=== PATIENT | female | born 1940 | race Caucasian/White ===

== ENCOUNTER 2020-01-12 10:26 | Emergency (ER) | payer OTHER, SELFPAY ==
[2020-01-12] VITALS (21 sets, daily range): BP systolic 123–149; BP diastolic 56–112; PULSE 63–74; RESP 15–22; TEMP 36.4; O2SAT 98–100
--- NOTE | ~2020-01-12 | XR_ITS ---
EXAMINATION: XR chest 2V 01/12/2020 11:07 INDICATION: Shortness of breath and dizziness PROCEDURE: 2 view chest COMPARISON: 07/09/2019 FINDINGS: The lungs are clear. The cardiomediastinal silhouette is within normal limits. There are no pleural effusions. There is no pneumothorax suspected. There is a deployed filter overlying the left hilum, possibly in the pulmonary artery. There is atherosclerosis. There are calcified granuloma s in the right upper lobe. IMPRESSION: 1: NO ACUTE CARDIOPULMONARY DISEASE. Reviewed, dictated and finalized at location A.
--- NOTE | ~2020-01-12 | CT_ITS ---
EXAMINATION: CT brain wo con DATE: 01/12/2020 11:01 INDICATION: Dizziness TECHNIQUE: Computed tomography (CT) of the head was performed without intravenous contrast. The dose- length product was 605.33 mGy-cm. The mA was adjusted according to patient size. Iterative reconstruc tion technique was employed. COMPARISON: None FINDINGS: No acute intracranial hemorrhage, infarction, mass or mass effect. No ventriculomegaly or m idline shift. Basilar cisterns are patent. There is intracranial atherosclerosis. Mild generalized at rophy. There are scattered mild periventricular and subcortical white matter changes, most likely rel ated to small vessel ischemic disease (microangiopathy). Paranasal sinuses and mastoids are pneumatiz ed. No depressed skull fractures. IMPRESSION: 1. No acute intracranial abnormality. 2: Chronic age-related findings. Reviewed, dictated and finalized at location A.
--- NOTE | 2020-01-12 10:47 | ECG_ITS ---
Measurements Intervals [place] Rate: 62 P: -8 MS: 217 QRS: 15 QRSD: 102 T: 48 QT: 425 QTc: 435 Interpretive Statements SINUS RHYTHM WITH FIRST DEGREE AV BLOCK INCOMPLETE RIGHT BUNDLE BRANCH BLOCK BORDERLINE T WAVE ABNORMALITY- ANTERIOR LEADS ABNORMAL ECG Electronically Signed On 01-12-2020 17:30:23 CDT by Eip Walker D.O.
--- NOTE | 2020-01-12 10:55 | ED.DIZZY ---
HPI - Dizziness General Chief Complaint: Dizziness Stated Complaint: dizzy/sob Time Seen by Provider: 01/12/20 10:35 Source: patient Mode of arrival: wheelchair Limitations: no limitations History of Present Illness HPI Narrative: This is a 79-year-old female that presents the emergency department for shortness of breath since yesterday. Worsened with exertion. Also reports she has had intermittent dizziness for the last 3 months. Reports this is worsened since yesterday as well. Reports this happens when she stands up. Reports she feels unsteady on her feet. Reports she has had dark stools for the last 9 months. She sees a GI doctor at [place] for this and recently had a capsule endoscopy. Also reports that she recently had a watchman procedure done due to her not being able to be on anticoagulation because of her GI bleed. Reports a cough that has been chronic for her. Denies fever, abdominal pain, vomiting, diarrhea, or dysuria. Related Data Home Medications Medication Instructions Recorded Confirmed Eliquis 5 mg PO BID 07/09/19 07/09/19 Januvia 50 mg PO DAILY 07/09/19 07/09/19 PreserVision AREDS 2 tablet PO DAILY 07/09/19 07/09/19 Vitamin D3 5,000 unit PO DAILY 07/09/19 07/09/19 amiodarone 200 mg PO DAILY 07/09/19 07/09/19 bupropion HCl 150 mg PO QAM 07/09/19 07/09/19 carvedilol 12.5 mg PO BID 07/09/19 07/09/19 furosemide [Lasix] 20 mg PO DAILY 07/09/19 07/09/19 gabapentin 100 mg PO HS 07/09/19 07/09/19 valsartan 80 mg PO DAILY 07/09/19 07/09/19 Allergies Allergy/AdvReac Type Severity Reaction Status Date / Time clarithromycin Allergy Severe RASH Verified 04/07/19 22:27 tetracycline Allergy Severe RASH Verified 04/07/19 22:27 Review of Systems Review of Systems: Narrative: CONSTITUTIONAL: Denies fever ENT: Denies rhinorrhea, congestion, sore throat, or otalgia. CARDIOVASCULAR: Denies chest pain or edema. RESPIRATORY: Reports dyspnea. Denies cough GASTROINTESTINAL: Reports nausea. Denies abdominal pain, vomiting, or diarrhea. GENITOURINARY: Denies dysuria or hematuria. NEUROLOGIC: Denies numbness, or weakness. 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 Gomez Diabetes GI bleed Hemochromatosis History of PFTs Performed April 2019 due to amiodarone use which demonstrated mild air trapping and moderate decreased diffusion capacity HLD (hyperlipidemia) HTN (hypertension) Paroxysmal atrial fibrillation With prior cardioversion 07/05/2019 Peripheral neuropathy Sleep apnea UTI (urinary tract infection) Surgical History Surgical History (Updated 07/09/19 @ 05:04 by Rebecca De Guzman DO) H/O cystoscopy [address] Sanabria due to micro hematuria biopsies demonstrated benign pathology with cystitis cystica H/O microdiscectomy 1999 at the time of her cervical spine fusion History of lumpectomy of right breast With lymph node biopsy with breast cancer radiation therapy 1997 for 7 weeks History of spinal surgery C7-T1 Social History Social History (Updated 07/09/19 @ 05:13 by Rebecca De Guzman DO) Social History: The patient lives in [place] with her of over 50 years. She has 4 children who are healthy. She smoked 1.5 packs of cigarettes per day for 30 years but quit smoking in 1992. She drinks an occasional glass of wine. 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 Primary care physician is Dr. Edison Sanabria. Smoking packs per day: 1.5 Smoking cigarettes per day: 30.0 Years smoked: 30 Smoking pack-years: 45.00 Smoking status: Former smoker Tobacco type: cigarettes Smoking end date: 04/01/93 Additional smoking assessment comments: Quit in 1992, had smoked 30+ years Alcohol intake: current Substance use: never Gender identity (if verbalized by the patie
[2020-01-12] MEDS: MECLIZINE HCL 25 MG TABLET PO (11:15)
[2020-01-12] MEDS: ONDANSETRON INJ 4 MG/2 ML VIAL IV PUSH (11:15)
[2020-01-12] MEDS: SODIUM CHLORIDE 0.9% IV 500 ML 999 ML IV CONT (11:15)
[2020-01-12 11:28] LABS: Basophils Percent Auto 0.7 % (0.2-1.2); Eosinophils Absolute Auto 0.1 K/mm3 (0-0.3); Eosinophils Percent Auto 3.2 % (0-4.4); Hematocrit 27.4 % (37.0-47.0); Hemoglobin 8.9 g/dL (12.0-15.0); Immature Granulocyte Absolute 0.04 K/mm3 (0.00-0.031); Lymphocytes Absolute Auto 0.48 K/mm3 (0.9-3.2); Lymphocytes Percent Auto 11.9 % (18.3-44.2); Mean Corpuscular HGB Conc 32.5 g/dl (32-36); Mean Corpuscular Hemoglobin 32.4 pg (26-34); Mean Corpuscular Volume 99.6 fl (80-100); Mean Platelet Volume 8.1 fl (7.4-10.4); Monocytes Absolute Auto 0.7 K/mm3 (0.1-0.6); Monocytes Percent Auto 16.6 % (2.6-8.5); Neutrophils Absolute Auto 2.7 K/mm3 (1.3-6.7); Neutrophils Percent Auto 66.6 % (45.5-73.1); Platelet Count Result 164 k/mm3 (150-375); Red Blood Count 2.75 M/mm3 (4.2-5.4); Red Cell Distribution Width 13.7 % (11.5-14.5)
[2020-01-12 11:35] LABS: INR 1.1; Prothrombin Time 14.2 Seconds (11.1-14.7)
[2020-01-12 11:36] LABS: Partial Thromboplastin Time 30.1 SECONDS (22.3-36.8)
[2020-01-12 11:37] LABS: Alanine Aminotransferase 32 U/L (4-35); Albumin Level 4.3 g/dL (3.5-5.1); Alkaline Phosphatase 70 U/L (38-126); Aspartate Amino Transferase 41 U/L (14-36); Bilirubin,Total 0.5 mg/dL (0.2-1.3); Blood Urea Nitrogen 17 mg/dL (7-17); Calcium 9.3 mg/dL (8.4-10.2); Carbon Dioxide 23 mmol/L (22-30); Chloride 99 mmol/L (98-107); Estimated CRCL calculation 36 ml/min; Estimated Glomerular Filt Rate 43; Glucose 132 mg/dL (65-105); Potassium 4.9 mmol/L (3.4-5.0); Sodium 130 mmol/L (137-145)
[2020-01-12 11:45] LABS: Add Urine Microscopic? YES; Appearance Urine Cloudy (Clear); Bacteria Urine Trace /hpf; Bilirubin Urine Negative (Negative); Blood Urine Negative (Negative); Color Urine Yellow (Yellow); Glucose Urine UA Negative (Negative); Ketones Urine Negative (Negative); Leukocyte Esterase Ur Trace LEU/UL (Negative); Mucus Urine Rare /lpf; Nitrate Urine Negative (Negative); Protein Urine Negative (Negative); Specific Grav Ur 1.015 (1.001-1.035); Squamous Epithelial Cell Urine Many /hpf (Few); WBC Urine 21-30 /hpf
[2020-01-12 11:45] LABS: NT Pro B Type Natriuretic Pept 230 PG/ML (5-100)
== END 2020-01-12 13:34 | disposition home or self-care (01) ==
PROVIDERS: Physician Assistant; Emergency Provider Emergency Medicine
DX: R42 Dizziness and giddiness (principal); E78.5 Hyperlipidemia, unspecified; I10 Essential (primary) hypertension; I48.0 Paroxysmal atrial fibrillation; Z79.01 Long term (current) use of anticoagulants; E11.42 Type 2 diabetes mellitus with diabetic polyneuropathy; Z87.440 Personal history of urinary (tract) infections; G47.30 Sleep apnea, unspecified; Z85.828 Personal history of other malignant neoplasm of skin; Z87.891 Personal history of nicotine dependence; Z79.84 Long term (current) use of oral hypoglycemic drugs; I44.0 Atrioventricular block, first degree; I45.10 Unspecified right bundle-branch block; R94.31 Abnormal electrocardiogram [ECG] [EKG]
CPT/HCPCS: 36415; 70450; 71046; 80053; 81001; 83880; 85025; 85610; 85730; 86850; 86900; 86901; 87077; 87086; 87088; 87186; 93005; 96361; 96374; 99284; A9270; J2405; J7040

== ENCOUNTER 2020-02-12 10:14 | Inpatient (IN) | payer MEDICARE, OTHER, SELFPAY ==
[2020-02-12] VITALS (14 sets, daily range): BP systolic 127–179; BP diastolic 44–83; PULSE 70–98; RESP 16–18; TEMP 36.3–37.4; O2SAT 97–100
--- NOTE | ~2020-02-12 | CT_ITS ---
EXAMINATION: CT brain wo con DATE: 02/12/2020 11:18 INDICATION: Dizziness. TECHNIQUE: Computed tomography (CT) of the head was performed without intravenous contrast. The mA wa s adjusted according to patient size. Iterative reconstruction technique was employed. The dose-lengt h product was 605.33 mGy-cm. COMPARISON: Head CT 01/12/2020 FINDINGS: There is no intracranial hemorrhage, acute infarction, or abnormal intracranial mass lesion . There are scattered areas of low attenuation in the cerebral white matter, which is within normal l imits for the patient's age. The ventricles are normal in size. There are likely changes of ocular le ns replacement surgeries. There is mild mucosal thickening in the ethmoid sinuses. There is a small l eft mastoid effusion. IMPRESSION: 1. Normal aging brain. Reviewed, dictated and finalized at location A. IMPRESSION: 1. Normal aging brain.
--- NOTE | 2020-02-12 10:47 | ED.GENADULT ---
HPI - General Adult General Chief complaint: Dizziness Stated complaint: Nausea, Dizzy Time Seen by Provider: 02/12/20 10:32 Source: patient Mode of arrival: ambulatory Limitations: no limitations History of Present Illness HPI narrative: Patient is a 79-year-old female with a history of atrial fibrillation, GI bleed chronically who presents for evaluation of weakness, nausea, dizziness. Patient states she notices the dizziness most with standing. No vertigo sensation or spinning type sensation. Patient reports dark, tarry stool which is chronic for her. She typically follows with gastroenterology at [facility] but was referred to this facility for assessment given the nausea and dizziness. Patient reports mild abdominal cramping which is currently resolved. No vomiting. No fever. No syncope or decreased level of consciousness. Related Data Home Medications Medication Instructions Recorded Confirmed Januvia 50 mg PO DAILY 07/09/19 07/09/19 PreserVision AREDS 2 tablet PO DAILY 07/09/19 07/09/19 Vitamin D3 5,000 unit PO DAILY 07/09/19 07/09/19 amiodarone 100 mg PO DAILY 07/09/19 07/09/19 bupropion HCl 150 mg PO QAM 07/09/19 07/09/19 carvedilol 12.5 mg PO BID 07/09/19 07/09/19 gabapentin 100 mg PO HS 07/09/19 07/09/19 valsartan 80 mg PO DAILY 07/09/19 07/09/19 aspirin [Adult Low Dose Aspirin] 02/12/20 clopidogrel [Plavix] 75 mg DAILY 02/12/20 02/12/20 vitamin B complex [B tablet 02/12/20 Complex-Vitamin B12] Allergies Allergy/AdvReac Type Severity Reaction Status Date / Time clarithromycin Allergy Severe RASH Verified 02/12/20 11:23 tetracycline Allergy Severe RASH Verified 02/12/20 11:23 [facility] Past Medical History Medical History (Updated 02/12/20 @ 11:56 by Evangelina Frost MD) Cancer 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 Gomez Diabetes GI bleed Hemochromatosis History of PFTs Performed April 2019 due to amiodarone use which demonstrated mild air trapping and moderate decreased diffusion capacity HLD (hyperlipidemia) HTN (hypertension) Paroxysmal atrial fibrillation With prior cardioversion 07/05/2019 Peripheral neuropathy Sleep apnea UTI (urinary tract infection) Surgical History Surgical History (Updated 07/09/19 @ 05:04 by Rebecca De Guzman DO) H/O cystoscopy [address] Sanabria due to micro hematuria biopsies demonstrated benign pathology with cystitis cystica H/O microdiscectomy 1999 at the time of her cervical spine fusion History of lumpectomy of right breast With lymph node biopsy with breast cancer radiation therapy 1997 for 7 weeks History of spinal surgery C7-T1 Social History Social History (Updated 07/09/19 @ 05:13 by Rebecca De Guzman DO) Social History: The patient lives in [place] with her of over 50 years. She has 4 children who are healthy. She smoked 1.5 packs of cigarettes per day for 30 years but quit smoking in 1992. She drinks an occasional glass of wine. 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 Primary care physician is Dr. Edison Sanabria. Smoking packs per day: 1.5 Smoking cigarettes per day: 30.0 Years smoked: 30 Smoking pack-years: 45.00 Smoking status: Former smoker Tobacco type: cigarettes Smoking end date: 04/01/93 Additional smoking assessment comments: Quit in 1992, had smoked 30+ years Alcohol intake: current Substance use: never Gender identity (if verbalized by the patient): Female Spiritual care concerns: No Agree to blood products: Yes Course Vital Signs Vital signs: Vital Signs Pulse Rate 83 02/12/20 10:49 Blood Pressure 147/62 H 02/12/20 10:49 Temperature 36.4 C 02/12/20 10:55 Pulse Rate 93 02/12/20 11:05 Respiratory Rate 18 02/12/20 10:55 Blood Pressure 127/59 L 02/12/20 11:05 Pulse Oximetry 100 02/12/20 10:55 Medical Decision Making MDM Narrative Medical decision making narrative: Patient presented for
--- NOTE | 2020-02-12 10:49 | ECG_ITS ---
Measurements Intervals [place] Rate: 93 P: 5 [place]: 194 QRS: 32 QRSD: 88 T: 32 QT: 349 QTc: 434 Interpretive Statements SINUS RHYTHM INCOMPLETE RIGHT BUNDLE BRANCH BLOCK BORDERLINE ECG Electronically Signed On 02-12-2020 10:51:32 CDT by Epi Walker D.O.
[2020-02-12 11:08] LABS: Eosinophils Absolute Auto 0.1 K/mm3 (0-0.3); Hematocrit 22.5 % (37.0-47.0); Immature Granulocyte Absolute 0.02 K/mm3 (0.00-0.031); Immature Granulocyte Percent A 0.7 % (0-0.5); Lymphocytes Absolute Auto 0.36 K/mm3 (0.9-3.2); Mean Corpuscular HGB Conc 30.7 g/dl (32-36); Mean Corpuscular Hemoglobin 28.5 pg (26-34); Mean Platelet Volume 8.4 fl (7.4-10.4); Monocytes Absolute Auto 0.5 K/mm3 (0.1-0.6); Monocytes Percent Auto 17.4 % (2.6-8.5); Neutrophils Absolute Auto 1.9 K/mm3 (1.3-6.7); Neutrophils Percent Auto 64.9 % (45.5-73.1); Platelet Count Result 141 k/mm3 (150-375); Red Blood Count 2.42 M/mm3 (4.2-5.4); Red Cell Distribution Width 14.5 % (11.5-14.5)
[2020-02-12 11:11] LABS: Hemoglobin 6.9 g/dL (12.0-15.0)
[2020-02-12 11:18] LABS: Alanine Aminotransferase 20 U/L (4-35); Albumin Level 3.5 g/dL (3.5-5.1); Alkaline Phosphatase 53 U/L (38-126); Aspartate Amino Transferase 26 U/L (14-36); Bilirubin,Total 0.3 mg/dL (0.2-1.3); Blood Urea Nitrogen 44 mg/dL (7-17); Calcium 8.5 mg/dL (8.4-10.2); Carbon Dioxide 21 mmol/L (22-30); Chloride 102 mmol/L (98-107); Estimated Glomerular Filt Rate 48; Glucose 142 mg/dL (65-105); Lipase 137 U/L (23-300); Potassium 4.8 mmol/L (3.4-5.0); Sodium 131 mmol/L (137-145)
[2020-02-12 11:21] LABS: INR 1.2; Prothrombin Time 15.1 Seconds (11.1-14.7)
[2020-02-12 11:22] LABS: Partial Thromboplastin Time 31.4 SECONDS (22.3-36.8)
[2020-02-12 11:29] LABS: Troponin I < 0.012 ng/mL (0.000-0.034)
[2020-02-12] MEDS: SODIUM CHLORIDE 0.9% IV 1,000 ML 999 ML IV CONT (11:37)
[2020-02-12] MEDS: MECLIZINE HCL 25 MG TABLET PO (11:39)
[2020-02-12] MEDS: PANTOPRAZOLE SODIUM IV 40 MG VIAL 80 MG IV PUSH (12:43)
--- NOTE | 2020-02-12 13:00 | PC.NURSE ---
Dr. Pan at bedside for evaluation.
[2020-02-12 13:03] LABS: Add Urine Microscopic? YES; Appearance Urine Clear (Clear); Bacteria Urine 2+ /hpf; Bilirubin Urine Negative (Negative); Blood Urine 2+ (Negative); Color Urine Yellow (Yellow); Glucose Urine UA Negative (Negative); Ketones Urine Negative (Negative); Leukocyte Esterase Ur Negative LEU/UL (Negative); Mucus Urine Rare /lpf; Nitrate Urine Positive (Negative); Protein Urine Negative (Negative); RBC Urine 0-2 /hpf (0-2); Specific Grav Ur 1.016 (1.001-1.035); Squamous Epithelial Cell Urine Many /hpf (Few); Urobilinogen Urine Negative mg/dL (<2.0); WBC Urine 0-3 /hpf
--- NOTE | 2020-02-12 13:06 | WPDGICN ---
Assessment and Plan Assessment and plan (1) GI bleed: Code(s): K92.2 - Gastrointestinal hemorrhage, unspecified Status: Acute Assessment and Plan: Patient has evidence for GI bleeding manifested by melenic stools and decline in her hemoglobin. Given the recent diagnosis of peptic ulcer disease 1 month ago this is most likely etiology for GI blood loss. Plan is for patient to be placed on proton pump inhibitors intravenously. Anticoagulation will be held. An EGD will be planned in the morning after stabilization. (2) Symptomatic anemia: Code(s): D64.9 - Anemia, unspecified Status: Acute Assessment and Plan: Patient more anemic than typical consistent with acute GI blood loss. Likely has chronic anemia it secondary to phlebotomy as treatment for her hemochromatosis. Plan is to monitor hemoglobin transfuse initially because of symptomatology. Continue monitor hemoglobin long-term. (3) Hemochromatosis: Code(s): E83.119 - Hemochromatosis, unspecified Status: Acute Assessment and Plan: Patient followed by Hematology of [facility]. Hemochromatosis felt to be stable although no old records available for review. (4) Paroxysmal atrial fibrillation: Code(s): I48.0 - Paroxysmal atrial fibrillation Status: Chronic Assessment and Plan: Patient currently on Plavix anticoagulation this will be held because of her bleeding. Previously intolerant of Eliquis because of GI blood loss over the last year. Long-term safety of anticoagulation will be assessed at the time of endoscopy. GI Consult Note Consult date/time: 02/12/20 13:06 HPI: Zhane Sorenson is a 79 year old female Seen in evaluation at the request of the emergency room. This patient has a history of hemochromatosis followed by Hematology followed at [facility]. she has had occasional phlebotomy in the past. One year ago she began to have GI blood loss manifested by black stools and anemia. Extensive GI workup at that time including colonoscopy EGD and capsule studies were not fruitful. No specific source of GI blood loss was noted at that time. Over the last year she was identified as having paroxysmal atrial fibrillation. Initially she was placed on Eliquis. In May she had dark stools and Eliquis was discontinued and replaced with Plavix anticoagulation. She apparently did well. However because of recent dark stools again 1 month ago underwent endoscopy at [facility] and was found to have peptic ulcer disease. This is felt to be the etiology for her recent GI bleeding. She has been maintained on proton pump inhibitor therapy. Patient did well until yesterday evening when she began to feel somewhat weak. She noticed abrupt change in her bowel habits which became black and darkish. She presented to the emergency room today and was found to have Hemoccult-positive melenic stools. Hemoglobin 6.9 in the emergency room. Patient currently denies any abdominal pain. She denies nonsteroidal anti-inflammatory agent use. Family history noncontributory. 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 Gomez Diabetes GI bleed Hemochromatosis History of PFTs Performed April 2019 due to amiodarone use which demonstrated mild air trapping and moderate decreased diffusion capacity HLD (hyperlipidemia) HTN (hypertension) Paroxysmal atrial fibrillation With prior cardioversion 07/05/2019 Peripheral neuropathy Sleep apnea UTI (urinary tract infection) Surgical History Surgical History H/O cystoscopy [address] Sanabria due to micro hematuria biopsies demonstrated benign pathology with cystitis cystica H/O microdiscectomy 200
[2020-02-12] MEDS: SODIUM CHLORIDE 0.9% IV 250 ML 30 ML IV CONT (15:21)
--- NOTE | 2020-02-12 15:39 | ADMGEN ---
This patient, Zhane Sorenson, was admitted to 3 [facility] Surg Room 319-01. Report received from WILIAM Villalobos. Patient/family oriented to hospital policies and general routines including ID bracelet, bed and alarms, visiting hours, pain management, procedures, bathroom and other care routines, personal items, smoking policy, room service/diet, and visiting hours. Valuables list has been completed. Information on how to activate the Rapid Response Team has been discussed. Patient/Family are encouraged to report perceived risks to care and to ask questions if they do not understand what they are told or what they should do.
[2020-02-12] MEDS: ONDANSETRON INJ 4 MG/2 ML VIAL IV PUSH (17:34)
--- NOTE | 2020-02-12 18:04 | WPDANESEPP ---
Anes - Eval Pre Procedure Procedure: Operation Date: 02/13/20 11:00 Proposed Procedures p Esophagogastroduodenoscopy - Adonay Pan MD Date/Time: 02/12/20 18:04 Pre Op Diagnosis: GI bleed Patient Data Age: 79 Gender: F Height: 5 ft 6 in Weight: 79.8 kg Last Vital Signs Temp 97.6 F 02/12/20 17:36 Pulse 76 02/12/20 17:36 Resp 18 02/12/20 17:36 BP 135/50 L 02/12/20 17:36 Pulse Ox 98 02/12/20 17:36 Allergies Allergy/AdvReac Type Severity Reaction Status Date / Time clarithromycin Allergy Severe RASH Verified 02/12/20 11:23 tetracycline Allergy Severe RASH Verified 02/12/20 11:23 Home Medications Medication Instructions Recorded Confirmed Type Januvia 50 mg PO DAILY 07/09/19 02/12/20 History PreserVision AREDS 1 tablet PO BID 07/09/19 02/12/20 History Vitamin D3 5,000 unit PO DAILY 07/09/19 02/12/20 History amiodarone 100 mg PO DAILY 07/09/19 02/12/20 History bupropion HCl 150 mg PO QAM 07/09/19 02/12/20 History carvedilol 12.5 mg PO BID 07/09/19 02/12/20 History gabapentin 200 mg PO HS 07/09/19 02/12/20 History valsartan 80 mg PO DAILY 07/09/19 02/12/20 History aspirin [Adult Low Dose Aspirin] 81 mg PO DAILY 02/12/20 02/12/20 History clopidogrel [Plavix] 75 mg DAILY 02/12/20 02/12/20 History pantoprazole 40 mg PO DAILY 02/12/20 02/12/20 History Laboratory Tests 02/12/20 02/12/20 02/12/20 11:01 11:01 11:01 WBC 3.0 K/mm3 L K/mm3 (4.5-10.0) RBC 2.42 M/mm3 L M/mm3 (4.2-5.4) Hgb 6.9 g/dL L* g/dL (12.0-15.0) Hct 22.5 % L % (37.0-47.0) MCV 93.0 fl fl (80-100) MCH 28.5 pg pg (26-34) MCHC 30.7 g/dl L g/dl (32-36) RDW 14.5 % % (11.5-14.5) Plt Count 141 k/mm3 L k/mm3 (150-375) MPV 8.4 fl fl (7.4-10.4) Immature Gran % (Auto) 0.7 % H % (0-0.5) Neut % (Auto) 64.9 % % (45.5-73.1) Lymph % (Auto) 12.0 % L % (18.3-44.2) [place] % (Auto) 17.4 % H % (2.6-8.5) Eos % (Auto) 4.0 % % (0-4.4) Baso % (Auto) 1.0 % % (0.2-1.2) Lymph # (Auto) 0.36 K/mm3 L K/mm3 (0.9-3.2) [place] # (Auto) 0.5 K/mm3 K/mm3 (0.1-0.6) Eos # (Auto) 0.1 K/mm3 K/mm3 (0-0.3) Baso # (Auto) 0.0 K/mm3 K/mm3 (0.0-0.1) Abs Immat Gran (auto) 0.02 K/mm3 K/mm3 (0.00-0.031) Absolute Neuts (auto) 1.9 K/mm3 K/mm3 (1.3-6.7) Absolute Nucleated RBC 0.0 K/mm3 K/mm3 (0.0-0.012) Nucleated RBC % 0.0 % % (0.0-0.2) PT 15.1 Seconds H Seconds (11.1-14.7) INR 1.2 APTT 31.4 SECONDS SECONDS (22.3-36.8) Sodium 131 mmol/L L mmol/L (137-145) Potassium 4.8 mmol/L mmol/L (3.4-5.0) Chloride 102 mmol/L mmol/L (98-107) Carbon Dioxide 21 mmol/L L mmol/L (22-30) BUN 44 mg/dL H D mg/dL (7-17) Creatinine 1.10 mg/dL H mg/dL (0.7-1.0) Estim Creat Clear Calc Not Reportable Estimated GFR 48 L (59 - ) Glucose 142 mg/dL H mg/dL (65-105) Calcium 8.5 mg/dL mg/dL (8.4-10.2) Total Bilirubin 0.3 mg/dL mg/dL (0.2-1.3) AST 26 U/L U/L (14-36) ALT 20 U/L U/L (4-35) Alkaline Phosphatase 53 U/L U/L (38-126) Troponin I < 0.012 ng/mL ng/mL (0.000-0.034) Total Protein 6.0 g/dL L g/dL (6.3-8.2) Albumin 3.5 g/dL g/dL (3.5-5.1) Lipase 137 U/L U/L (23-300) Urine Color Urine Appearance Urine pH Ur Specific [place] Urine Protein Urine Glucose (UA) Urine Ketones Ur Blood (Man) Urine Nitrate Urine Bilirubin Urine Urobilinogen Leukocyte Esterase Rfl Urine RBC Urine WBC Ur Squamous Epith Cells Ur
--- NOTE | 2020-02-12 18:40 | PM.IMHP ---
H&P: HPI History of Present Illness Chief complaint: GI bleed Narrative: Zhane Sorenson is a 79 year old female Who has a long standing history of anemia with a GI bleed. The patient was at [facility] approximately 1 week ago and had endoscopies there. She stated that they did cauterize something but she was not sure what it was. She has seen Dr. lara here in the past. She does have history of peptic ulcer disease. She has a history of atrial fibrillation and had been on Plavix at 1 time she was also on Eliquis at 1 time which she has been taken off of that. Her last admission here was on 07/09/2019 where she had the dark stools. Initially she GI was consulted on that admission but then canceled. Today the patient has been feeling dizzy while standing. No shortness of breath or chest pain. She has dark tarry stools which have been chronic. She has a history of hemochromatosis which she states her iron has been low recently and hematology was talking about possibly giving her iron IV. Patient's hemoglobin was 6.9 with hematocrit of 22.5. Blood pressure stable 143/55. She was ordered 1 unit of packed red blood cells. Her blood sugar was noted to be 142. The patient was given IV Tylenol, normal saline IV fluids, and over and Protonix In the emergency room. Date of service 02/12/2020 Review of Systems Review of Systems: All systems reviewed & are unremarkable except as noted in HPI and below Constitutional: Constitutional: Reports as per HPI and Reports no additional constitutional complaints Eyes: Eyes: Reports as per HPI and Reports no additional eye complaints ENT: Reports system reviewed and no additional complaints, except as documented and Reports Normal hearing present Cardiovascular: Cardiovascular: Reports no additional cardiovascular complaints Respiratory: Respiratory: Reports no additional respiratory complaints and Reports no additional respiratory complaints Gastrointestinal: Gastrointestinal: Reports as per HPI and Reports no additional gastrointestinal complaints Musculoskeletal: Musculoskeletal: Reports no additional musculoskeletal complaints Integumentary/Breasts: Skin/Breast: Reports system reviewed and no additional complaints, except as docu and Reports as per HPI Neurologic: Reports system reviewed and no additional complaints, except as documented, Reports as per HPI and Reports Normal hearing present Psychiatric: Psychiatric: Reports no additional psychiatric complaints and Reports as per HPI Endocrine: Endocrine: Reports no additional endocrine complaints Hematologic/Lymphatic: Hematologic/Lymphatic: Reports no additional hematologic/lymphatic complaints Allergic/Immunologic: Allergic/Immunologic: Reports no additional allergic/immunologic complaints [facility] Past Medical History Medical History (Updated 02/12/20 @ 19:00 by Paola Feldman NP) Acute GI bleeding CAD (coronary atherosclerotic disease) Cancer 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 Gomez Diabetes GI bleed Hemochromatosis History of PFTs Performed April 2019 due to amiodarone use which demonstrated mild air trapping and moderate decreased diffusion capacity HLD (hyperlipidemia) HTN (hypertension) Paroxysmal atrial fibrillation With prior cardioversion 07/05/2019 Peripheral neuropathy Restless leg syndrome Sleep apnea uses a CPAP machine Symptomatic anemia UTI (urinary tract infection) Surgical History Surgical History H/O cystoscopy [address] Sanabria due to micro hematuria biopsies demonstrated benign pathology with cystitis cystica H/O microdiscectomy 1999 at the time of her cervical spine fusion History of lumpectomy of right breast With lymph node biopsy with breast cancer radiation therapy 1997 for 7 weeks History of spinal surgery C7-T1 Family History Family History (Reviewed 02/12/20 @ 18:47 by Paola Hollingsworth
[2020-02-12] MEDS: LACTATED RINGERS 1,000 ML 125 ML IV CONT (19:28)
[2020-02-12 19:34] LABS: Glucose Point of Care 120 (65-105)
[2020-02-12 20:24] LABS: Hematocrit 22.9 % (37.0-47.0); Hemoglobin 7.5 g/dL (12.0-15.0)
[2020-02-13] VITALS (12 sets, daily range): BP systolic 80–146; BP diastolic 43–73; PULSE 69–82; RESP 14–20; TEMP 36.2–36.9; O2SAT 94–100
[2020-02-13 01:15] LABS: Glucose Point of Care 110 (65-105)
[2020-02-13 02:24] LABS: Hematocrit 21.5 % (37.0-47.0)
[2020-02-13 02:33] LABS: Alanine Aminotransferase 18 U/L (4-35); Albumin Level 3.1 g/dL (3.5-5.1); Alkaline Phosphatase 47 U/L (38-126); Aspartate Amino Transferase 25 U/L (14-36); Bilirubin,Total 0.4 mg/dL (0.2-1.3); Blood Urea Nitrogen 37 mg/dL (7-17); Calcium 8.2 mg/dL (8.4-10.2); Carbon Dioxide 22 mmol/L (22-30); Chloride 106 mmol/L (98-107); Estimated CRCL calculation 44 ml/min; Estimated Glomerular Filt Rate 54; Glucose 101 mg/dL (65-105); Lipase 100 U/L (23-300); Potassium 4.2 mmol/L (3.4-5.0); Sodium 135 mmol/L (137-145)
[2020-02-13 04:40] LABS: Free T4 Free Thyroxine Reflex 0.35 ng/dL (0.78-2.19)
[2020-02-13] MEDS: GABAPENTIN 100 MG CAPSULE 200 MG PO ×2 (05:28→20:27)
[2020-02-13] MEDS: LACTATED RINGERS 1,000 ML 125 ML IV CONT ×2 (07:12→20:27)
[2020-02-13 08:21] LABS: Glucose Point of Care 121 (65-105)
[2020-02-13 08:42] LABS: Hematocrit 23.1 % (37.0-47.0); Hemoglobin 7.6 g/dL (12.0-15.0)
--- NOTE | 2020-02-13 09:10 | WPDANESEPPF ---
Anes - Initial Pre Proc Eval Procedure: Operation Date: 02/13/20 11:00 Proposed Procedures p Esophagogastroduodenoscopy - Adonay Pan MD Date/Time: 02/13/20 09:10 Surgeon: Teresita Mercado MD Pre Op Diagnosis: GI bleed Patient Data Age: 79 Gender: F Height: 1.68 m Weight: 79.8 kg Last Vital Signs Temp 36.9 C 02/13/20 06:55 Pulse 79 02/13/20 06:55 Resp 18 02/13/20 06:55 BP 105/60 02/13/20 06:55 Pulse Ox 94 02/13/20 06:55 Allergies Allergy/AdvReac Type Severity Reaction Status Date / Time clarithromycin Allergy Severe RASH Verified 02/13/20 10:56 tetracycline Allergy Severe RASH Verified 02/13/20 10:56 Home Medications Medication Instructions Recorded Confirmed Type Januvia 50 mg PO DAILY 07/09/19 02/12/20 History PreserVision AREDS 1 tablet PO BID 07/09/19 02/12/20 History Vitamin D3 5,000 unit PO DAILY 07/09/19 02/12/20 History amiodarone 100 mg PO DAILY 07/09/19 02/12/20 History bupropion HCl 150 mg PO QAM 07/09/19 02/12/20 History carvedilol 12.5 mg PO BID 07/09/19 02/12/20 History gabapentin 200 mg PO HS 07/09/19 02/12/20 History valsartan 80 mg PO DAILY 07/09/19 02/12/20 History aspirin [Adult Low Dose Aspirin] 81 mg PO DAILY 02/12/20 02/12/20 History clopidogrel [Plavix] 75 mg DAILY 02/12/20 02/12/20 History pantoprazole 40 mg PO DAILY 02/12/20 02/12/20 History Laboratory Tests 02/12/20 02/12/20 02/12/20 11:01 11:01 11:01 WBC 3.0 K/mm3 L K/mm3 (4.5-10.0) RBC 2.42 M/mm3 L M/mm3 (4.2-5.4) Hgb 6.9 g/dL L* g/dL (12.0-15.0) Hct 22.5 % L % (37.0-47.0) MCV 93.0 fl fl (80-100) MCH 28.5 pg pg (26-34) MCHC 30.7 g/dl L g/dl (32-36) RDW 14.5 % % (11.5-14.5) Plt Count 141 k/mm3 L k/mm3 (150-375) MPV 8.4 fl fl (7.4-10.4) Immature Gran % (Auto) 0.7 % H % (0-0.5) Neut % (Auto) 64.9 % % (45.5-73.1) Lymph % (Auto) 12.0 % L % (18.3-44.2) [place] % (Auto) 17.4 % H % (2.6-8.5) Eos % (Auto) 4.0 % % (0-4.4) Baso % (Auto) 1.0 % % (0.2-1.2) Lymph # (Auto) 0.36 K/mm3 L K/mm3 (0.9-3.2) [place] # (Auto) 0.5 K/mm3 K/mm3 (0.1-0.6) Eos # (Auto) 0.1 K/mm3 K/mm3 (0-0.3) Baso # (Auto) 0.0 K/mm3 K/mm3 (0.0-0.1) Abs Immat Gran (auto) 0.02 K/mm3 K/mm3 (0.00-0.031) Absolute Neuts (auto) 1.9 K/mm3 K/mm3 (1.3-6.7) Absolute Nucleated RBC 0.0 K/mm3 K/mm3 (0.0-0.012) Nucleated RBC % 0.0 % % (0.0-0.2) PT 15.1 Seconds H Seconds (11.1-14.7) INR 1.2 APTT 31.4 SECONDS SECONDS (22.3-36.8) Sodium 131 mmol/L L mmol/L (137-145) Potassium 4.8 mmol/L mmol/L (3.4-5.0) Chloride 102 mmol/L mmol/L (98-107) Carbon Dioxide 21 mmol/L L mmol/L (22-30) BUN 44 mg/dL H D mg/dL (7-17) Creatinine 1.10 mg/dL H mg/dL (0.7-1.0) Estim Creat Clear Calc Not Reportable Estimated GFR 48 L (59 - ) Glucose 142 mg/dL H mg/dL (65-105) POC Capillary Glucose Calcium 8.5 mg/dL mg/dL (8.4-10.2) Phosphorus Total Bilirubin 0.3 mg/dL mg/dL (0.2-1.3) AST 26 U/L U/L (14-36) ALT 20 U/L U/L (4-35) Alkaline Phosphatase 53 U/L U/L (38-126) Troponin I < 0.012 ng/mL ng/mL (0.000-0.034) Total Protein 6.0 g/dL L g/dL (6.3-8.2) Albumin 3.5 g/dL g/dL (3.5-5.1) Lipase 137 U/L U/L (23-300) TSH (Reflex) Free T4 Urine Color Urine Appearance Urine pH Ur Specific [place] Urine Protein Urine Glucose (UA) Urine Ketones Ur Blood (Man) Urine Nitrate Urine Bilirubin Urine Urobilinog
--- NOTE | 2020-02-13 10:40 | PC.NURSE ---
To GI Lab per elisabet, IV #20 left hand, #20 left forearm. Report given to WILIAM Pandya.
[2020-02-13 11:01] LABS: Glucose Point of Care 116 (65-105)
[2020-02-13] MEDS: LACTATED RINGERS 1,000 ML 150 ML IV CONT (11:03)
--- NOTE | 2020-02-13 13:36 | PC.NURSE ---
Returned from GI Lab. Report received from WILIAM Guevara.
--- NOTE | 2020-02-13 14:18 | PM.IMPN ---
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 Patient seen in ER for dizziness and rectal exam was grossly melanotic and guaiac positive stool. Hgb 6.9. Patient received 2U PRBC since admission. EGD today showing acute duodenal ulcer int he third part of the duodenum. Will continue Protonix. Monitor HH closely. Transfuse as necessary. Check gastrin level. (3) Diabetes: Code(s): E11.9 - Type 2 diabetes mellitus without complications Status: Acute Assessment and Plan: Glucose reviewed on 02/13/2020. Glucose well controlled. Continue Accu-Cheks with sliding scale insulin. Januvia will remain on hold. (4) HTN (hypertension): Code(s): I10 - Essential (primary) hypertension Status: Acute Assessment and Plan: Blood pressure reviewed on 02/13/2020. Blood pressure well controlled but she is currently off her Coreg and valsartan. Will continue to monitor and resume these medications in a stepwise fashion as her blood pressure tolerates. (5) Paroxysmal atrial fibrillation: Code(s): I48.0 - Paroxysmal atrial fibrillation Status: Chronic Assessment and Plan: Aspirin and Plavix are on hold at this time due to the GI bleed. Amiodarone resumed. BP still soft so will continue to hold Coreg (6) Sleep apnea: Code(s): G47.30 - Sleep apnea, unspecified Status: Chronic Assessment and Plan: Stable. CPAP has been ordered for the patient. (7) Restless leg syndrome: Code(s): G25.81 - Restless legs syndrome Status: Chronic Assessment and Plan: Stable. Continue home medications. (8) Hypothyroid: Code(s): E03.9 - Hypothyroidism, unspecified Status: Acute Assessment and Plan: TSH 86 with low FT4 at 0.35. She has recently been decreased on her AMiodarone dose. Could be contributing to some of her dizzy symptoms. Will start Synthroid. Subjective Date/time seen: 02/13/20 14:18 Interval history: 79yo female with recent EGD here for dizziness and GI bleed. Patient had EGD at [facility] on 02/03 showing AVM duodenum and jejunum as well as mutiple nonbleeding gastric erosions. Old record reviewed. She feels bloated today and with abd pain. No CP or SOB. She did not wear her BiPAP last night. Exam Narrative: Exam Narrative: AF 98.4 100/71 18 99% ra Gen - NARD Chest - CTA bilat CV - RRR Abd -soft, protuberant, +BS, mild suprapubic pain Ext - no pedal edema Neuro - groggy from the procedure. Skin - warm and dry Objective Data Vital Signs Vital Signs: Vital Signs - 24 hr 02/12/20 15:21 02/12/20 15:24 02/12/20 15:36 Temperature 99.3 F 98.7 F 98.6 F Pulse Rate 81 81 79 Respiratory Rate 16 16 16 Blood Pressure 137/64 130/62 128/62 Pulse Oximetry 97 98 98 02/12/20 16:36 02/12/20 17:36 02/12/20 18:30 Temperature 98.3 F 97.6 F 97.5 F L Pulse Rate 78 76 78 Respiratory Rate 18 18 18 Blood Pressure 130/44 L 135/50 L 143/55 H Pulse Oximetry 98 98 100 02/12/20 22:00 02/13/20 04:42 02/13/20 04:55 Temperature 97.4 F L 98.1 F 98.0 F Pulse Rate 70 79 78 Respiratory Rate 16 16 20 Blood Pressure 142/56 H 110/44 L 146/45 H Pulse Oximetry 98 99 99 02/13/20 05:55 02/13/20 06:00 02/13/20 06:55 Temperature 97.1 F L 97.1 F L 98.4 F Pulse Rate 82 82 79 Respiratory Rate 18 18 18 Blood Pressure 113/73 134/67 105/60 Pulse Oximetry 98 100 94 02/13/20 11:47 02/13/20 13:00 02/13/20 13:10 Temperature 97.7 F Pulse Rate 77 72 72 Respiratory Rate 18 16 14 Blood Pressure 146/50 H 82/43 L 80/45 L Pulse Oximetry 99 98 99 02/13/20 13:20 02/13/20 13:26
[2020-02-13] MEDS: OPTI-GEN TAB 1 TABLET PO (17:49)
[2020-02-13 18:51] LABS: Glucose Point of Care 141 (65-105)
[2020-02-13 20:11] LABS: Hematocrit 24.1 % (37.0-47.0); Hemoglobin 7.9 g/dL (12.0-15.0)
[2020-02-13] MEDS: PANTOPRAZOLE 40 MG TABLET PO (20:27)
[2020-02-14] VITALS (11 sets, daily range): BP systolic 122–144; BP diastolic 48–62; PULSE 72–81; RESP 16–20; TEMP 36.3–36.9; O2SAT 95–98
[2020-02-14 00:24] LABS: Glucose Point of Care 123 (65-105)
[2020-02-14 01:03] LABS: Hematocrit 22.5 % (37.0-47.0); Hemoglobin 7.3 g/dL (12.0-15.0)
[2020-02-14] MEDS: LACTATED RINGERS 1,000 ML 125 ML IV CONT (04:41)
[2020-02-14] MEDS: LEVOTHYROXINE SODIUM 50 MCG TABLET PO (06:13)
[2020-02-14 06:34] LABS: Hematocrit 21.7 % (37.0-47.0); Mean Corpuscular HGB Conc 31.8 g/dl (32-36); Mean Corpuscular Hemoglobin 29.2 pg (26-34); Mean Corpuscular Volume 91.9 fl (80-100); Mean Platelet Volume 8.3 fl (7.4-10.4); Platelet Count Result 113 k/mm3 (150-375); Red Blood Count 2.36 M/mm3 (4.2-5.4); Red Cell Distribution Width 15.2 % (11.5-14.5)
[2020-02-14 06:42] LABS: Hemoglobin 6.9 g/dL (12.0-15.0)
[2020-02-14 06:59] LABS: Blood Urea Nitrogen 23 mg/dL (7-17); Calcium 8.7 mg/dL (8.4-10.2); Carbon Dioxide 23 mmol/L (22-30); Chloride 104 mmol/L (98-107); Estimated CRCL calculation 48 ml/min; Estimated Glomerular Filt Rate > 60; Glucose 112 mg/dL (65-105); Sodium 134 mmol/L (137-145)
[2020-02-14 07:58] LABS: Vitamin B12 > 1000.0 pg/mL (239-931)
[2020-02-14] MEDS: SODIUM CHLORIDE 0.9% IV 250 ML 30 ML IV CONT (08:51)
[2020-02-14] MEDS: PANTOPRAZOLE 40 MG TABLET PO ×2 (09:17→21:41)
[2020-02-14] MEDS: buPROPion HCL XL (24 HR) 150 MG TABCR PO (09:17)
[2020-02-14 09:18] LABS: Glucose Point of Care 141 (65-105)
[2020-02-14] MEDS: CHOLECALCIFEROL 1,000 UNIT TABLET 5000 UNITS PO (09:18)
[2020-02-14] MEDS: OPTI-GEN TAB 1 TABLET PO ×2 (09:18→18:26)
[2020-02-14] MEDS: AMIODARONE HCL 100 MG TABLET PO (09:18)
--- NOTE | 2020-02-14 09:36 | WPDANESPN ---
Anes - Prog Note Post-Op Date/Time: 02/14/20 09:36 Cardiovascular status: normal Respiratory status: normal Airway patency: baseline Mental status: baseline Post-Op hydration status: normal Vital Signs: Last Vital Signs Temp 36.5 C 02/14/20 09:08 Pulse 78 02/14/20 09:18 Resp 16 02/14/20 09:08 BP 141/52 H 02/14/20 09:08 Pulse Ox 95 02/14/20 09:08 I/O: Intake & Output 02/13/20 02/14/20 02/14/20 23:59 07:59 15:59 Intake Total 790 1700 0 Output Total 700 1300 Balance 90 400 0 Laboratory Tests 02/14/20 06:07 02/14/20 06:07 02/12/20 02/13/20 02/13/20 12:08 10:58 17:15 WBC RBC Hgb Hct MCV MCH MCHC RDW Plt Count MPV Sodium Potassium Chloride Carbon Dioxide Anion Gap BUN Creatinine Estim Creat Clear Calc Estimated GFR Glucose POC Capillary Glucose 116 H 141 H Calcium Vitamin B12 Folate Gastrin Blood Type A Positive Antibody Screen Negative Crossmatch See Detail 02/13/20 02/14/20 02/14/20 19:55 00:20 00:43 WBC RBC Hgb 7.9 L 7.3 L Hct 24.1 L 22.5 L MCV MCH MCHC RDW Plt Count MPV Sodium Potassium Chloride Carbon Dioxide Anion Gap BUN Creatinine Estim Creat Clear Calc Estimated GFR Glucose POC Capillary Glucose 123 H Calcium Vitamin B12 Folate Gastrin Blood Type Antibody Screen Crossmatch 02/14/20 02/14/20 02/14/20 06:07 06:07 06:07 WBC 3.0 L RBC 2.36 L Hgb 6.9 L* Hct 21.7 L MCV 91.9 MCH 29.2 MCHC 31.8 L RDW 15.2 H Plt Count 113 L MPV 8.3 Sodium 134 L Potassium 4.0 Chloride 104 Carbon Dioxide 23 Anion Gap 11.0 BUN 23 H D Creatinine 0.90 Estim Creat Clear Calc 48 Estimated GFR > 60 Glucose 112 H POC Capillary Glucose Calcium 8.7 Vitamin B12 > 1000.0 H Folate 7.0 Gastrin Pending Blood Type Antibody Screen Crossmatch 02/14/20 09:16 WBC RBC Hgb Hct MCV MCH MCHC RDW Plt Count MPV Sodium Potassium Chloride Carbon Dioxide Anion Gap BUN Creatinine Estim Creat Clear Calc Estimated GFR Glucose POC Capillary Glucose 141 H Calcium Vitamin B12 Folate Gastrin Blood Type Antibody Screen Crossmatch Post-procedural complaints: none Patient Feedback: Patient satisfied with anesthetic care.
--- NOTE | 2020-02-14 09:51 | WPDGIPROGNO ---
Progress Note: A&P Additional Plan Patient comfortable this morning. No additional bleeding reported. She denies abdominal pain. Tolerating diet. Physical exam reveals her to be alert. Pale in appearance. Comfortable at rest. HEENT exam unremarkable. Lungs are clear to auscultation and percussion. Heart is without murmur. Abdomen is soft and nontender. Records from [facility] reveal she had angiodysplasia by EGD a week ago. EGD yesterday revealed duodenal ulcer. 1. Upper GI bleeding. Appears to have been from duodenal ulcer. Plan is to review histology when available. Avoid nonsteroidal anti-inflammatory agents. Continue proton pump inhibitors. She is no longer bleeding. But may require transfusion to his more stable hematocrit. Will advance diet. Discharge when hemoglobin stable. Follow-up EGD in 2 months is advised. 2. Hemochromatosis. This is chronic. Currently felt to be stable. Followed by Hematology. 3. Atrial fibrillation. Given her recent significant GI bleeding but hold on anticoagulation for his several weeks. Subjective Date/time seen: 02/14/20 09:51 Objective Data Vital Signs Vital Signs: Vital Signs - 24 hr 02/13/20 11:47 02/13/20 13:00 02/13/20 13:10 Temperature 97.7 F Pulse Rate 77 72 72 Respiratory Rate 18 16 14 Blood Pressure 146/50 H 82/43 L 80/45 L Pulse Oximetry 99 98 99 02/13/20 13:20 02/13/20 13:26 02/13/20 13:58 Temperature 98.4 F Pulse Rate 71 69 72 Respiratory Rate 20 18 18 Blood Pressure 104/55 L 110/59 L 100/71 Pulse Oximetry 98 99 99 02/13/20 22:00 02/14/20 06:00 02/14/20 08:53 Temperature 97.9 F 98.4 F 97.4 F L Pulse Rate 80 74 78 Respiratory Rate 18 18 16 Blood Pressure 114/48 L 122/50 L 140/59 L Pulse Oximetry 100 96 96 02/14/20 09:08 02/14/20 09:18 Temperature 97.7 F Pulse Rate 78 78 Respiratory Rate 16 Blood Pressure 141/52 H Pulse Oximetry 95 Intake/Output Intake/Output: Intake & Output 02/11/20 02/12/20 02/13/20 02/14/20 23:59 23:59 23:59 23:59 Intake Total 1450 3602 1700 Output Total 6872 929 4760 Balance 50 2902 400 Meds/Results Medications: Active Medications Generic Name Dose Route Start Last Admin Trade Name Freq PRN Reason Stop Dose Admin Amiodarone HCl 100 mg 02/14/20 09:00 02/14/20 09:18 Pacerone PO 100 mg DAILY WILLIE Administration Bupropion HCl 150 mg 02/14/20 09:00 02/14/20 09:17 Wellbutrin Xl (24 Hr) PO 150 mg QAM WILLIE Administration Dextrose 12.5 gm 02/12/20 18:55 Dextrose 50% Syringe IV PUSH PRN PRN Hypoglycemia Protocol Gabapentin 200 mg 02/13/20 21:00 02/13/20 20:27 Neurontin PO 200 mg HS WILLIE Administration Glucagon 1 mg 02/12/20 18:55 Glucagon For Inj IM PRN PRN Hypoglycemia Protocol Glucose 15 gm 02/12/20 18:55 Glutose 15 PO PRN PRN Hypoglycemia Protocol Hydralazine HCl 10 mg 02/12/20 19:01 Apresoline Hcl Inj IV PUSH Q8H PRN Blood Pressure - High Lactated Ringer's 1,000 mls @ 125 mls/hr 02/12/20 11:55 02/14/20 05:57 Lr - Lactated Ringers Iv IV CONT Not Given .Q8H WILLIE Dextrose 1,000 mls @ 100 mls/hr 02/12/20 18:55 Dextrose 5% 1,000 Ml IVPB PRN PRN Hypoglycemia Protocol Sodium Chloride 250 mls @ 30 mls/hr 02/14/20 06:47 02/14/20 08:51 Normal Saline Iv IV CONT 02/14/20 15:06 30 mls/hr .Q8H20M STA Administration Insulin Aspart 3 - 6 units 02/14/20 08:00 Novolog SUB-Q TIDWM WILLIE Protocol Levothyroxine Sodium 50 mcg 02/14/20 06:30 02/14/20 06:13 Synthroid PO 50 mcg DAILY@0630 WILLIE Administration Lorazepam 0.5 mg 02/12/20 19:01 02/13/20 05:05 Ativan Inj IV PUSH 0.5 mg Q6H PRN Administration Anxiety Multivitamins/Minerals 1 tablet 02/13/20 17:00 02/14/20 09:18 Ocuvite PO 1 tablet BID WILLIE Administration Pantoprazole Sodium 40 mg 02/13/20 21:00 02/14/20 09:17 Protonix
[2020-02-14 12:00] LABS: Glucose Point of Care 179 (65-105)
--- NOTE | 2020-02-14 13:46 | PM.IMPN ---
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 Patient seen in ER for dizziness and rectal exam was grossly melanotic and guaiac positive stool. Hgb 6.9. Patient received 2U PRBC. EGD 02/12 showing acute duodenal ulcer in the third part of the duodenum. Hgb 6.9 again today and 1U PRBC ordered. Continue Protonix. Monitor HH closely after the transfusion. Gastrin level pending. Appreciate GI input. (2) Symptomatic anemia: Code(s): D64.9 - Anemia, unspecified Status: Acute Assessment and Plan: Rectal exam was grossly melanotic and guaiac positive stool in ER. Hgb 6.9. Patient received 2U PRBC and Hgb improved. Hgb dropped to 6.9 again today so 1U PRBC ordered. Monitor HH closely and transfuse as necessary. Iron at discharge. (3) Diabetes: Code(s): E11.9 - Type 2 diabetes mellitus without complications Status: Acute Assessment and Plan: Glucose reviewed on 02/14/2020. Glucose well controlled. Continue Accu-Cheks with sliding scale insulin. Januvia will remain on hold. (4) HTN (hypertension): Code(s): I10 - Essential (primary) hypertension Status: Acute Assessment and Plan: Blood pressure reviewed on 02/14/2020. Blood pressure lindsey. She is currently off her Coreg and valsartan. Will resume Coreg. Will continue to monitor. (5) Paroxysmal atrial fibrillation: Code(s): I48.0 - Paroxysmal atrial fibrillation Status: Chronic Assessment and Plan: Aspirin and Plavix are on hold at this time due to the GI bleed. Continue Amiodarone resumed. BP better so will resume Coreg (6) Sleep apnea: Code(s): G47.30 - Sleep apnea, unspecified Status: Chronic Assessment and Plan: Stable. CPAP has been ordered but patient refusing (7) Restless leg syndrome: Code(s): G25.81 - Restless legs syndrome Status: Chronic Assessment and Plan: Stable. Continue home medications. (8) Hypothyroid: Code(s): E03.9 - Hypothyroidism, unspecified Status: Acute Assessment and Plan: TSH 86 with low FT4 at 0.35. She has recently been decreased on her Amiodarone dose. Hypothyroidism untreated could be contributing to some of her dizzy symptoms. Continue Synthroid. Subjective Date/time seen: 02/14/20 13:46 Interval history: 79yo female with recent EGD here for dizziness and GI bleed. Patient had EGD at [place] on 02/03 showing AVM duodenum and jejunum as well as multiple nonbleeding gastric erosions. Patient had a Watchman procedure and per protocol is on Plavix but is supposed to come off Plavix on 03/18. She slept well overnight. Stool since EGD was black. No abd pain. Hx of leukopenia. Exam Narrative: Exam Narrative: AF 98.0 141/50 76 16 98% ra Gen - NARD lying almost flat in bed Chest - few basilar rhonchi, nml RR CV - RRR S1/S2 Abd -soft, NT/ND, +BS Ext - no pedal edema Psych - alert, pleasant and cooperative. Skin - warm and dry Objective Data Vital Signs Vital Signs: Vital Signs - 24 hr 02/13/20 13:58 02/13/20 22:00 02/14/20 06:00 Temperature 98.4 F 97.9 F 98.4 F Pulse Rate 72 80 74 Respiratory Rate 18 18 18 Blood Pressure 100/71 114/48 L 122/50 L Pulse Oximetry 99 100 96 02/14/20 08:53 02/14/20 09:08 02/14/20 09:18 Temperature 97.4 F L 97.7 F Pulse Rate 78 78 78 Respiratory Rate 16 16 Blood Pressure 140/59 L 141/52 H Pulse Oximetry 96 95 02/14/20 10:08 02/14/20 11:08 02/14/20 12:08 Temperature 98.0 F 97.8 F 98.0 F Pulse Rate 81 80 76 Respiratory Rate 18 16 18 Blood Pressure 136/48 L 141/48 H 142/49 H Pulse Oximetry 98 98 98 02/14/20 12:49 Temperature 98.0 F Pulse Rate 76 Respiratory Rate 16
[2020-02-14 14:14] LABS: Hematocrit 27.1 % (37.0-47.0); Hemoglobin 8.9 g/dL (12.0-15.0)
[2020-02-14 18:11] LABS: Glucose Point of Care 147 (65-105)
[2020-02-14 19:37] LABS: Hematocrit 25.7 % (37.0-47.0); Hemoglobin 8.4 g/dL (12.0-15.0)
[2020-02-14] MEDS: GABAPENTIN 100 MG CAPSULE 200 MG PO (21:41)
[2020-02-14] MEDS: carvediloL 12.5 MG TABLET PO (21:41)
[2020-02-14 21:51] LABS: Glucose Point of Care 119 (65-105)
[2020-02-14] MEDS: ACETAMINOPHEN 325 MG TABLET 650 MG PO (23:26)
[2020-02-15 00:45] LABS: Hematocrit 25.7 % (37.0-47.0); Hemoglobin 8.5 g/dL (12.0-15.0)
[2020-02-15] MEDS: LEVOTHYROXINE SODIUM 50 MCG TABLET PO (05:58)
[2020-02-15 06:00] VITALS: BP 123/50; PULSE 66; RESP 18; TEMP 36.4; O2SAT 95
[2020-02-15 06:24] LABS: Basophils Percent Auto 0.5 % (0.2-1.2); Eosinophils Absolute Auto 0.2 K/mm3 (0-0.3); Eosinophils Percent Auto 4.7 % (0-4.4); Hematocrit 25.7 % (37.0-47.0); Hemoglobin 8.6 g/dL (12.0-15.0); Immature Granulocyte Absolute 0.01 K/mm3 (0.00-0.031); Immature Granulocyte Percent A 0.3 % (0-0.5); Lymphocytes Absolute Auto 0.53 K/mm3 (0.9-3.2); Lymphocytes Percent Auto 13.7 % (18.3-44.2); Mean Corpuscular HGB Conc 33.5 g/dl (32-36); Mean Corpuscular Hemoglobin 30.6 pg (26-34); Mean Corpuscular Volume 91.5 fl (80-100); Mean Platelet Volume 8.3 fl (7.4-10.4); Monocytes Absolute Auto 0.4 K/mm3 (0.1-0.6); Monocytes Percent Auto 10.1 % (2.6-8.5); Neutrophils Absolute Auto 2.7 K/mm3 (1.3-6.7); Neutrophils Percent Auto 70.7 % (45.5-73.1); Platelet Count Result 106 k/mm3 (150-375); Red Blood Count 2.81 M/mm3 (4.2-5.4); Red Cell Distribution Width 14.6 % (11.5-14.5); White Blood Count 3.9 K/mm3 (4.5-10.0)
[2020-02-15 06:45] LABS: Blood Urea Nitrogen 14 mg/dL (7-17); Calcium 8.2 mg/dL (8.4-10.2); Carbon Dioxide 25 mmol/L (22-30); Chloride 102 mmol/L (98-107); Estimated CRCL calculation 48 ml/min; Estimated Glomerular Filt Rate > 60; Glucose 129 mg/dL (65-105); Sodium 133 mmol/L (137-145)
[2020-02-15 08:17] LABS: Glucose Point of Care 149 (65-105)
[2020-02-15 09:23] VITALS: BP 119/61; PULSE 60; RESP 18; O2SAT 97
[2020-02-15] MEDS: OPTI-GEN TAB 1 TABLET PO (09:24)
[2020-02-15] MEDS: CHOLECALCIFEROL 1,000 UNIT TABLET 5000 UNITS PO (09:25)
[2020-02-15 09:26] VITALS: PULSE 60
[2020-02-15] MEDS: buPROPion HCL XL (24 HR) 150 MG TABCR PO (09:26)
[2020-02-15] MEDS: AMIODARONE HCL 100 MG TABLET PO (09:26)
[2020-02-15] MEDS: PANTOPRAZOLE 40 MG TABLET PO (09:26)
[2020-02-15] MEDS: carvediloL 12.5 MG TABLET PO (09:26)
--- NOTE | 2020-02-15 10:07 | WPDGIPROGNO ---
Progress Note: A&P Additional Plan patient alert and comfortable this morning. She feels stronger after transfusion yesterday. She denies any additional GI bleeding. She denies abdominal pain. Physical exam reveals patient to be alert. Vital signs stable. HEENT exam unremarkable. Lungs are clear to auscultation and percussion. Heart is without murmur or extra sounds. Abdominal exam is soft nontender with no organomegaly. Labs reveal hemoglobin 8.6, hematocrit 25.7, impression 1. Upper GI bleeding. Now resolved. Duodenal ulcer found on endoscopy. May be from previous cautery site. She does have a history of AVMs treated recently. Plan to keep patient on proton pump inhibitor. Advance diet. Follow-up EGD in 2 months advised. Hopefully discharge today if all agree. 2. Hemochromatosis. Clinically stable. Followed by Hematology. 3. Atrial fibrillation. Plavix should be held for 1-2 weeks. Subjective Date/time seen: 02/15/20 10:07 Objective Data Vital Signs Vital Signs: Vital Signs - 24 hr 02/14/20 10:08 02/14/20 11:08 02/14/20 12:08 Temperature 98.0 F 97.8 F 98.0 F Pulse Rate 81 80 76 Respiratory Rate 18 16 18 Blood Pressure 136/48 L 141/48 H 142/49 H Pulse Oximetry 98 98 98 02/14/20 12:49 02/14/20 14:00 02/14/20 21:41 Temperature 98.0 F 97.7 F Pulse Rate 76 76 76 Respiratory Rate 16 18 Blood Pressure 141/50 H 141/60 H Pulse Oximetry 98 98 02/14/20 22:00 02/15/20 06:00 02/15/20 09:23 Temperature 97.4 F L 97.5 F L Pulse Rate 72 66 60 Respiratory Rate 20 18 18 Blood Pressure 144/62 H 123/50 L 119/61 Pulse Oximetry 97 95 97 02/15/20 09:26 Temperature Pulse Rate 60 Respiratory Rate Blood Pressure Pulse Oximetry Intake/Output Intake/Output: Intake & Output 02/12/20 02/13/20 02/14/20 02/15/20 23:59 23:59 23:59 23:59 Intake Total 1450 3602 3505 900 Output Total 4216 771 7411 800 Balance 50 2902 405 100 Meds/Results Medications: Active Medications Generic Name Dose Route Start Last Admin Trade Name Freq PRN Reason Stop Dose Admin Acetaminophen 650 mg 02/14/20 16:03 02/14/20 23:26 Tylenol Tablet PO 650 mg Q6H PRN Administration Mild Pain (1-3) or Fever Amiodarone HCl 100 mg 02/14/20 09:00 02/15/20 09:26 Pacerone PO 100 mg DAILY WILLIE Administration Bupropion HCl 150 mg 02/14/20 09:00 02/15/20 09:26 Wellbutrin Xl (24 Hr) PO 150 mg QAM WILLIE Administration Carvedilol 12.5 mg 02/14/20 21:00 02/15/20 09:26 Coreg PO 12.5 mg Q12HR WILLIE Administration Dextrose 12.5 gm 02/12/20 18:55 Dextrose 50% Syringe IV PUSH PRN PRN Hypoglycemia Protocol Gabapentin 200 mg 02/13/20 21:00 02/14/20 21:41 Neurontin PO 200 mg HS WILLIE Administration Glucagon 1 mg 02/12/20 18:55 Glucagon For Inj IM PRN PRN Hypoglycemia Protocol Glucose 15 gm 02/12/20 18:55 Glutose 15 PO PRN PRN Hypoglycemia Protocol Hydralazine HCl 10 mg 02/12/20 19:01 Apresoline Hcl Inj IV PUSH Q8H PRN Blood Pressure - High Dextrose 1,000 mls @ 100 mls/hr 02/12/20 18:55 Dextrose 5% 1,000 Ml IVPB PRN PRN Hypoglycemia Protocol Insulin Aspart 3 - 6 units 02/14/20 08:00 02/15/20 09:20 Novolog SUB-Q Not Given TIDWM [facility] Protocol Levothyroxine Sodium 50 mcg 02/14/20 06:30 02/15/20 05:58 Synthroid PO 50 mcg DAILY@0630 WILLIE Administration Lorazepam 0.5 mg 02/12/20 19:01 02/14/20 22:06 Ativan Inj IV PUSH 0.5 mg Q6H PRN Administration Anxiety Multivitamins/Minerals 1 tablet 02/13/20 17:00 02/15/20 09:24 Ocuvite PO 1 tablet BID WILLIE Administration Pantoprazole Sodium 40 mg 02/13/20 21:00 02/15/20 09:26 Protonix PO 40 mg Q12HR WILLIE Administration Vitamin D 5,000 unit 02/14/20 09:00 02/15/20 09:25 Vitamin D PO 5,000 unit DAILY WILLIE Administration Radiology Results: [facility] Imp[facility]
--- NOTE | 2020-02-15 11:07 | PM.DS ---
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 Patient presents with dizziness and rectal exam was grossly melanotic and guaiac positive stool. Hgb 6.9. Patient received 2U PRBC. GI consulted. Started on Protonix. EGD 02/12 showing acute duodenal ulcer in the third part of the duodenum. Ulcer could be related to one of the cautery sites. Hgb 6.9 again and 1U PRBC ordered. Hgb improved to 8.6. Gastrin level ordered. (2) Symptomatic anemia: Code(s): D64.9 - Anemia, unspecified Status: Acute Assessment and Plan: Rectal exam was grossly melanotic and guaiac positive stool in ER. Hgb 6.9. Patient received 2U PRBC and Hgb improved. Hgb dropped to 6.9 again today so 1U PRBC ordered. Hgb improved and stable. (3) Diabetes: Code(s): E11.9 - Type 2 diabetes mellitus without complications Status: Acute Assessment and Plan: Glucose monitored and remained well controlled. Monitored with Accu-Cheks with sliding scale insulin. Januvia resumed at discharge (4) HTN (hypertension): Code(s): I10 - Essential (primary) hypertension Status: Acute Assessment and Plan: Blood pressure monitored closely. Blood pressure low-normal so anti-HTN meds held. BP improved and able to resume Coreg which she tolerated well. (5) Paroxysmal atrial fibrillation: Code(s): I48.0 - Paroxysmal atrial fibrillation Status: Chronic Assessment and Plan: Aspirin and Plavix are on hold at this time due to the GI bleed. Amiodarone was resumed. (6) Sleep apnea: Code(s): G47.30 - Sleep apnea, unspecified Status: Chronic Assessment and Plan: Stable. CPAP was ordered but patient refused (7) Restless leg syndrome: Code(s): G25.81 - Restless legs syndrome Status: Chronic Assessment and Plan: Stable. We continued home medications. (8) Hypothyroid: Code(s): E03.9 - Hypothyroidism, unspecified Status: Acute Assessment and Plan: TSH 86 with low FT4 at 0.35. She has recently been decreased on her Amiodarone dose. Hypothyroidism untreated could be contributing to some of her dizzy symptoms. She was started on Synthroid. DS: Summary Hospital Course Reason for hospitalization: 79yo female here for dizziness and found to be anemic from a GI bleed. Please see H&P for details Hospital Course: As above Time Spent with Patient Time attestation: Total time spent providing and/or coordinating discharge services:35 minutes Time spent: Greater than 30 minutes Exam Narrative: Exam Narrative: AF 119/61 60 Gen - NARD lying almost flat in bed Chest - CTA bilaterally. nml RR CV - RRR S1/S2 Abd -soft, NT/ND, +BS Ext - no pedal edema Psych - alert, pleasant and cooperative. Skin - warm and dry DS: Data Data Completed and Pending Completed studies during hospitalization: Pending at discharge 02/13/20 12:58 Surgical [PTH] Routine Labs on day of discharge: Labs from last 24 hours 02/15/20 02/15/20 02/15/20 08:08 06:16 06:16 WBC 3.9 L RBC 2.81 L Hgb 8.6 L Hct 25.7 L MCV 91.5 MCH 30.6 MCHC 33.5 RDW 14.6 H Plt Count 106 L MPV 8.3 Immature Gran % (Auto) 0.3 Neut % (Auto) 70.7 Lymph % (Auto) 13.7 L Door % (Auto) 10.1 H Eos % (Auto) 4.7 H Baso % (Auto) 0.5 Lymph # (Auto) 0.53 L Door # (Auto) 0.4 Eos # (Auto) 0.2 Baso # (Auto) 0.0 Abs Immat Gran (auto) 0.01 Absolute Neuts (auto) 2.7 Absolute Nucleated RBC 0.0 Nucleated RBC % 0.0 Sodium 133 L Potassium 4
[2020-02-15 12:53] LABS: Glucose Point of Care 114 (65-105)
[2020-02-20 05:11] LABS: Gastrin 113 pg/mL (<=100)
--- NOTE | 2020-02-22 09:48 | PC.NURSE ---
Gastrin 113. Results given to Dr. Chandra and Dr. Acevedo.
== END 2020-02-15 13:25 | disposition home or self-care (01) | DRG 378 ==
LOC: ANHED 11:56 → ANH3MEDSUR 12:29
PROVIDERS: Family Medicine; Internal Medicine Gastroenterology; Nurse Practitioner; Admitting Provider Family Medicine; Emergency Provider Emergency Medicine; PCP Internal Medicine; Visit Provider Internal Medicine
PROC: 0DJ08ZZ Inspection of Upper Intestinal Tract, Via Natural or Artificial Opening Endoscopic (ICD-10-PCS; CPT 43235; principal; 2020-02-13 11:00)
DX: K26.0 Acute duodenal ulcer with hemorrhage (principal); D61.818 Other pancytopenia; D64.9 Anemia, unspecified; E11.42 Type 2 diabetes mellitus with diabetic polyneuropathy; E78.5 Hyperlipidemia, unspecified; I48.0 Paroxysmal atrial fibrillation; I10 Essential (primary) hypertension; G47.30 Sleep apnea, unspecified; G25.81 Restless legs syndrome; E03.9 Hypothyroidism, unspecified; E83.119 Hemochromatosis, unspecified; Z79.01 Long term (current) use of anticoagulants; Z79.82 Long term (current) use of aspirin; Z79.84 Long term (current) use of oral hypoglycemic drugs; Z87.891 Personal history of nicotine dependence
CPT/HCPCS: 36415; 36430; 70450; 80048; 80053; 81001; 82607; 82746; 82941; 83690; 84100; 84439; 84443; 84484; 85014; 85018; 85025; 85027; 85610; 85730; 86850; 86900; 86901; 86923; 88305; 88313; 93005; 96361; 96365; 96375; 97116; 97161; 97165; 99285; A9270; C9113; G0378; J0131; J2060; J2405; J2704; J7030; J7050; J7060; J7120; P9016

== ENCOUNTER 2020-04-11 00:35 | Outpatient (CLI) | payer OTHER, SELFPAY ==
[2020-04-11 17:08] LABS: SARS-CoV-2 RNA PCR Negative
== END 2020-04-11 00:36 | disposition home or self-care (01) ==
LOC: ANHCOVIDDT 00:35
PROVIDERS: Visit Provider Internal Medicine Gastroenterology
DX: Z01.812 Encounter for preprocedural laboratory examination (principal); Z20.828 Contact with and (suspected) exposure to other viral communicable diseases
CPT/HCPCS: 87635; C9803; U0003

== ENCOUNTER 2020-04-14 00:17 | Day surgery (SDC) | payer OTHER, SELFPAY ==
[2020-04-04 13:45] VITALS: BMI 28.0
[2020-04-14 06:29] VITALS: BP 145/62; PULSE 59; RESP 16; TEMP 36.5; O2SAT 95; BMI 28.0
[2020-04-14] MEDS: LACTATED RINGERS 1,000 ML 150 ML IV CONT (06:43)
[2020-04-14 06:44] LABS: Glucose Point of Care 117 (65-105)
--- NOTE | 2020-04-14 07:15 | WPDANESEPPF ---
Anes - Initial Pre Proc Eval Procedure: Operation Date: 04/14/20 07:30 Proposed Procedures p Esophagogastroduodenoscopy - Adonay Pan MD Date/Time: 04/14/20 07:15 Surgeon: Adonay Pan MD Pre Op Diagnosis: duodenal ulcer Patient Data Age: 79 Gender: F Height: 5 ft 6 in Weight: 78.8 kg Last Vital Signs Temp 97.7 F 04/14/20 06:29 Pulse 59 L 04/14/20 06:29 Resp 16 04/14/20 06:29 BP 145/62 H 04/14/20 06:29 Pulse Ox 95 04/14/20 06:29 Allergies Allergy/AdvReac Type Severity Reaction Status Date / Time clarithromycin Allergy Severe RASH Verified 04/14/20 06:28 tetracycline Allergy Severe RASH Verified 04/14/20 06:28 Home Medications Medication Instructions Recorded Confirmed Type Januvia 50 mg PO DAILY 07/09/19 04/04/20 History PreserVision AREDS 1 tablet PO BID 07/09/19 04/04/20 History Vitamin D3 5,000 unit PO DAILY 07/09/19 04/04/20 History amiodarone 100 mg PO DAILY 07/09/19 04/04/20 History bupropion HCl 150 mg PO QAM 07/09/19 04/04/20 History carvedilol 12.5 mg PO BID 07/09/19 04/04/20 History gabapentin 200 mg PO HS 07/09/19 04/04/20 History valsartan 80 mg PO DAILY 07/09/19 04/04/20 History aspirin [Adult Low Dose Aspirin] 81 mg PO DAILY 02/12/20 04/04/20 History levothyroxine [Synthroid] 50 mcg PO DAILY@0630 #30 tablet 02/15/20 04/04/20 Rx pantoprazole 40 mg PO DAILY 04/04/20 04/04/20 History Laboratory Tests 04/14/20 06:42 POC Capillary Glucose 117 mg/dl H mg/dl (65-105) Patient hx anesthesia problems: none Family hx anesthesia problems: none PMFSH Past Medical History Medical History (Updated 02/13/20 @ 14:29 by Ervin Chandra MD) Acute GI bleeding CAD (coronary atherosclerotic disease) Cancer 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 Gomez Diabetes GI bleed Hemochromatosis History of PFTs Performed April 2019 due to amiodarone use which demonstrated mild air trapping and moderate decreased diffusion capacity HLD (hyperlipidemia) HTN (hypertension) Paroxysmal atrial fibrillation With prior cardioversion 07/05/2019 Peripheral neuropathy Restless leg syndrome Sleep apnea uses a CPAP machine Symptomatic anemia UTI (urinary tract infection) Surgical History Surgical History H/O cystoscopy [address] Sanabria due to micro hematuria biopsies demonstrated benign pathology with cystitis cystica H/O microdiscectomy 1999 at the time of her cervical spine fusion History of lumpectomy of right breast With lymph node biopsy with breast cancer radiation therapy 1997 for 7 weeks History of spinal surgery C7-T1 Social History Social History (Updated 02/12/20 @ 18:48 by Paola Feldman NP) Social History: The patient lives in [place] with her of over 50 years. She has 4 children who are healthy. She smoked 1.5 packs of cigarettes per day for 30 years but quit smoking in 1992. She drinks an occasional glass of wine. 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 her is a durable power disability attorney for healthcare. She desires to be a full code. Primary care physician is Dr. Edison Sanabria. Smoking packs per day: 1.5 Smoking cigarettes per day: 30.0 Years smoked: 30 Smoking pack-years: 45.00 Smoking status: Never smoker Tobacco type: cigarettes Smoking end date: 04/01/93 Additional smoking assessment comments: Quit in 1992, had smoked 30+ years Alcohol intake: former Drinks per week: 2 Substance use: never Substance use type: does not use Living arrangements: with family Gender identity (if verbalized by the patient): Female Spiritual care concerns: No Agree to blood products: Yes Anes - Eval Final PreProcedure Day of Procedure 04/14/20 07:15 Patient weight: normal Heart: regular rate and rhythm Lungs: clear to auscultation Airway: Mallampati scale class II Neurological: alert
--- NOTE | 2020-04-14 07:40 | WPDGICN ---
Assessment and Plan Assessment and plan (1) Duodenal ulcer: Code(s): K26.9 - Duodenal ulcer, unspecified as acute or chronic, without hemorrhage or perforation Status: Acute Assessment and Plan: Duodenal ulcer identified by EGD in January. She has been maintained on proton pump inhibitors. EGD to be performed today because of the very large size of this ulcer. (2) GI bleed: Code(s): K92.2 - Gastrointestinal hemorrhage, unspecified Status: Acute Assessment and Plan: GI bleeding in January. Was found to have large duodenal ulcer and also angiodysplasias. Patient presents today for follow-up EGD. (3) Hemochromatosis: Code(s): E83.119 - Hemochromatosis, unspecified Status: Acute Assessment and Plan: Clinically felt to be stable. Hemoglobin has been stable. (4) Paroxysmal atrial fibrillation: Code(s): I48.0 - Paroxysmal atrial fibrillation Status: Chronic GI Consult Note Consult date/time: 04/14/20 07:40 HPI: Zhane Sorenson is a 79 year old female Who presents for follow-up EGD. Patient recently hospitalized with upper GI bleeding was found to have a large duodenal ulcer. She also had angiodysplasia requiring cautery. She has been maintained on Protonix since that time. She presents today for follow-up EGD to document healing of ulcer. Past medical history is significant for atrial fibrillation. She has a history of a watchman device that was placed. Previous Plavix has been on hold. She has been on daily aspirin. 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 Gomez Diabetes GI bleed Hemochromatosis History of PFTs Performed April 2019 due to amiodarone use which demonstrated mild air trapping and moderate decreased diffusion capacity HLD (hyperlipidemia) HTN (hypertension) Paroxysmal atrial fibrillation With prior cardioversion 07/05/2019 Peripheral neuropathy Restless leg syndrome Sleep apnea uses a CPAP machine Symptomatic anemia UTI (urinary tract infection) Surgical History Surgical History H/O cystoscopy [address] Sanabria due to micro hematuria biopsies demonstrated benign pathology with cystitis cystica H/O microdiscectomy 1999 at the time of her cervical spine fusion History of lumpectomy of right breast With lymph node biopsy with breast cancer radiation therapy 1997 for 7 weeks History of spinal surgery C7-T1 Social History Social History (Updated 02/12/20 @ 18:48 by Paola Feldman NP) Social History: The patient lives in [place] with her of over 50 years. She has 4 children who are healthy. She smoked 1.5 packs of cigarettes per day for 30 years but quit smoking in 1992. She drinks an occasional glass of wine. 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 She desires to be a full code. Primary care physician is Dr. Edison Sanabria. Smoking packs per day: 1.5 Smoking cigarettes per day: 30.0 Years smoked: 30 Smoking pack-years: 45.00 Smoking status: Never smoker Tobacco type: cigarettes Smoking end date: 04/01/93 Additional smoking assessment comments: Quit in 1992, had smoked 30+ years Alcohol intake: former Drinks per week: 2 Substance use: never Substance use type: does not use Living arrangements: with family Gender identity (if verbalized by the patient): Female Spiritual care concerns: No Agree to blood products: Yes Meds Home Medications and Allergies Home Medications Medication Instructions Recorded Confirmed Type Imer Roe
[2020-04-14 07:42] VITALS: BP 106/49; PULSE 58; RESP 24; O2SAT 97
[2020-04-14 07:52] VITALS: BP 122/61; PULSE 60; RESP 20; O2SAT 98
[2020-04-14 08:00] VITALS: BP 131/69; PULSE 54; RESP 22; O2SAT 99
== END 2020-04-14 08:21 | disposition home or self-care (01) ==
PROVIDERS: Visit Provider Internal Medicine Gastroenterology
PROC: 0DJ08ZZ Inspection of Upper Intestinal Tract, Via Natural or Artificial Opening Endoscopic (ICD-10-PCS; CPT 43235; principal; 2020-04-14 07:30)
DX: Z09 Encounter for follow-up examination after completed treatment for conditions other than malignant neoplasm (principal); K29.00 Acute gastritis without bleeding; Z87.11 Personal history of peptic ulcer disease; E83.119 Hemochromatosis, unspecified; I48.0 Paroxysmal atrial fibrillation; I25.10 Atherosclerotic heart disease of native coronary artery without angina pectoris; I10 Essential (primary) hypertension; E78.5 Hyperlipidemia, unspecified; E11.40 Type 2 diabetes mellitus with diabetic neuropathy, unspecified; G47.33 Obstructive sleep apnea (adult) (pediatric); G25.81 Restless legs syndrome; Z87.891 Personal history of nicotine dependence; Z98.1 Arthrodesis status
CPT/HCPCS: 43239; 87081; 87635; C9803; J2704; J7120; U0003

== ENCOUNTER 2020-04-17 12:35 | Outpatient (CLI) | payer OTHER, SELFPAY ==
[2020-04-17 15:43] LABS: Free T4 Free Thyroxine Reflex 0.97 ng/dL (0.78-2.19)
[2020-04-17 19:57] LABS: Total Triiodothyronine (T3) 1.04 NG/ML (0.97-1.69)
== END 2020-04-17 12:36 | disposition home or self-care (01) ==
LOC: ANHLAB 12:37
PROVIDERS: Visit Provider Internal Medicine
DX: E03.9 Hypothyroidism, unspecified (principal)
CPT/HCPCS: 36415; 84439; 84443; 84480

== ENCOUNTER 2020-06-07 13:03 | Emergency (ER) | payer OTHER, SELFPAY ==
--- NOTE | 2020-06-07 13:12 | ED.BACK ---
HPI - Back Pain/Injury General Chief Complaint: Back Pain/Injury Stated Complaint: back pain Time Seen by Provider: 06/07/20 13:16 Source: patient and RN notes reviewed Mode of arrival: ambulatory Limitations: no limitations History of Present Illness HPI Narrative: 79 year old female [facility] complaints of acute pain to the left lower back since yesterday with no recent injury. Patient states that she has pain in the left SI region into buttock, down thigh to her left knee. Patient states that she has taken Tylenol with no improvement and is very uncomfortable. Patient states that she does have some peripheral neuropathy in her feet but denies any increase in tingling or numbness.Patient rates her pain 5/10 and describes her pain as constant ache.Patient denies any difficulty with bowel or bladder, denies any saddle paraesthesia.Patient states that she can not take any Ibuprofen due to GI bleeding. MD elicited complaint: back pain Pertinent past history: prior back pain, cancer (breast cancer) and other (peripheral neuropathy ) Onset (ago): day(s) (2) Timing: constant Severity: moderate Pain scale (0-10): 5 Quality: aching Location: left lower back Radiation: left upper leg (to her knee) Exacerbating factors: movement and walking Relieving factors: none Associated symptoms: difficulty walking and arthralgias Treatments prior to arrival: cold therapy, heat therapy and acetaminophen Work related injury: No Related Data Home Medications Medication Instructions Recorded Confirmed Januvia 50 mg PO DAILY 07/09/19 06/07/20 PreserVision AREDS 1 tablet PO BID 07/09/19 06/07/20 Vitamin D3 5,000 unit PO DAILY 07/09/19 06/07/20 amiodarone 100 mg PO DAILY 07/09/19 06/07/20 bupropion HCl 150 mg PO QAM 07/09/19 06/07/20 carvedilol 12.5 mg PO BID 07/09/19 06/07/20 gabapentin 200 mg PO HS 07/09/19 06/07/20 valsartan 80 mg PO DAILY 07/09/19 06/07/20 aspirin [Adult Low Dose Aspirin] 81 mg PO DAILY 02/12/20 06/07/20 pantoprazole 40 mg PO DAILY 04/04/20 06/07/20 Allergies Allergy/AdvReac Type Severity Reaction Status Date / Time clarithromycin Allergy Severe RASH Verified 04/14/20 06:28 tetracycline Allergy Severe RASH Verified 04/14/20 06:28 Review of Systems Review of Systems: Narrative: CONSTITUTIONAL: Denies fever, chills, or sweats. EYES: Denies visual changes, redness, or discharge. ENT: Denies rhinorrhea, congestion, sore throat, or otalgia. CARDIOVASCULAR: Denies chest pain, palpitations, or edema. RESPIRATORY: Denies cough or dyspnea. GASTROINTESTINAL: Denies abdominal pain, nausea, vomiting, or diarrhea. GENITOURINARY: Denies dysuria or hematuria. SKIN: Denies rash or itching. MUSCULOSKELETAL: Positive back pain, radiation to left knee joint pain, or myalgia. NEUROLOGIC: Denies headache, numbness, or weakness. PSYCHIATRIC: Denies anxiety or depression. 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 Gomez Diabetes GI bleed Hemochromatosis History of PFTs Performed April 2019 due to amiodarone use which demonstrated mild air trapping and moderate decreased diffusion capacity HLD (hyperlipidemia) HTN (hypertension) Paroxysmal atrial fibrillation With prior cardioversion 07/05/2019 Peripheral neuropathy Restless leg syndrome Sleep apnea uses a CPAP machine Symptomatic anemia UTI (urinary tract infection) Surgical History Surgical History H/O cystoscopy [address] Sanabria due to micro hematuria biopsies demonstrated benign pathology with cystitis cystica H/O microdiscectomy 1999 at the time of her cervical spine fusion History of lumpectomy of right breast With lymph node biopsy with breast c
[2020-06-07 13:15] VITALS: BP 165/60; PULSE 70; RESP 20; TEMP 36.5; O2SAT 99
== END 2020-06-07 13:44 | disposition home or self-care (01) ==
PROVIDERS: Emergency Provider Registered Nurse; PCP Internal Medicine
DX: M54.5 Low back pain (principal); Z87.891 Personal history of nicotine dependence; I25.10 Atherosclerotic heart disease of native coronary artery without angina pectoris; E78.5 Hyperlipidemia, unspecified; I10 Essential (primary) hypertension; I48.91 Unspecified atrial fibrillation; E11.42 Type 2 diabetes mellitus with diabetic polyneuropathy; G47.30 Sleep apnea, unspecified; G25.81 Restless legs syndrome; Z79.82 Long term (current) use of aspirin; Z85.3 Personal history of malignant neoplasm of breast; Z85.828 Personal history of other malignant neoplasm of skin
CPT/HCPCS: 99213; G0463

== ENCOUNTER 2020-06-10 07:38 | Emergency (ER) | payer OTHER, SELFPAY ==
--- NOTE | ~2020-06-10 | XR_ITS ---
XR lumbar spine 2-3V DATE: 06/10/2020 08:15 INDICATION: Back pain, radiating. No injury TECHNIQUE: AP, lateral, coned lateral lumbosacral views COMPARISON: None FINDINGS: Moderate osteopenia. Mild lumbar scoliosis. The lumbar vertebrae are normally aligned. No fracture or bone destruction is evident. The lumbar ped icles are intact. There is moderate degenerative disc disease at L3-4. There is moderately severe degenerative disc disease at L4-5 and L5-S1. There is extensive calcification of the abdominal aorta and common iliac arteries but no apparent abd ominal aortic aneurysm. The sacroiliac joints are normal. IMPRESSION: Multilevel degenerative disc disease, most prominent at L4-5 and L5-S1 Reviewed, dictated and finalized at location [facility] [employer] IMPRESSION: Multilevel degenerative disc disease, most prominent at L4-5 and L5 -S1
[2020-06-10 07:37] VITALS: BP 188/80; PULSE 74; RESP 16; TEMP 36.3; O2SAT 99
--- NOTE | 2020-06-10 07:52 | ED.GENADULT ---
HPI - General Adult General Chief complaint: Back Pain/Injury Stated complaint: back pain Source: patient History of Present Illness HPI narrative: Patient is a 79 y/o female complaining of left low back pain radiating to left leg for about 1 week. She states that she was seen in urgent care 3 days ago and was given pain meds, steroids and muscle relaxer. She turned this morning, felt a pop , and her pain is worse now. She rates her pain as 8/10. She has no trouble with bowel or bladder function. She has some subjective left leg weakness, but she is able to move her left leg. She has chronic bilateral foot numbness due to neuropathy. Related Data Home Medications Medication Instructions Recorded Confirmed Januvia 50 mg PO DAILY 07/09/19 06/07/20 PreserVision AREDS 1 tablet PO BID 07/09/19 06/07/20 Vitamin D3 5,000 unit PO DAILY 07/09/19 06/07/20 amiodarone 100 mg PO DAILY 07/09/19 06/07/20 bupropion HCl 150 mg PO QAM 07/09/19 06/07/20 carvedilol 12.5 mg PO BID 07/09/19 06/07/20 gabapentin 200 mg PO HS 07/09/19 06/07/20 valsartan 80 mg PO DAILY 07/09/19 06/07/20 aspirin [Adult Low Dose Aspirin] 81 mg PO DAILY 02/12/20 06/07/20 pantoprazole 40 mg PO DAILY 04/04/20 06/07/20 Allergies Allergy/AdvReac Type Severity Reaction Status Date / Time clarithromycin Allergy Severe RASH Verified 06/10/20 07:41 tetracycline Allergy Severe RASH Verified 06/10/20 07:41 Review of Systems Constitutional: Constitutional: Denies chills, Denies fever(s), Denies headache(s) and Denies weakness Eyes: Eyes: Denies blurry vision ENT: Denies headache(s) and Denies neck pain Cardiovascular: Cardiovascular: Denies chest pain and Denies dyspnea Respiratory: Respiratory: Denies cough and Denies dyspnea Gastrointestinal: Gastrointestinal: Denies abdominal pain, Denies diarrhea, Denies nausea and Denies vomiting Genitourinary: Genitourinary: Denies hematuria and Denies dysuria Musculoskeletal: Musculoskeletal: Reports back pain and Denies neck pain Neurologic: Denies headache(s), Reports numbness and Reports weakness (subjective left leg weakness) Comments: bilateral foot PMFSH Past Medical History Medical History (Updated 06/10/20 @ 09:48 by Farhana Escalera MD) Acute GI bleeding CAD (coronary atherosclerotic disease) Cancer 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 Gomez Diabetes GI bleed Hemochromatosis History of PFTs Performed April 2019 due to amiodarone use which demonstrated mild air trapping and moderate decreased diffusion capacity HLD (hyperlipidemia) HTN (hypertension) Paroxysmal atrial fibrillation With prior cardioversion 07/05/2019 Peripheral neuropathy Restless leg syndrome Sleep apnea uses a CPAP machine Symptomatic anemia UTI (urinary tract infection) Surgical History Surgical History H/O cystoscopy [address] Sanabria due to micro hematuria biopsies demonstrated benign pathology with cystitis cystica H/O microdiscectomy 1999 at the time of her cervical spine fusion History of lumpectomy of right breast With lymph node biopsy with breast cancer radiation therapy 1997 for 7 weeks History of spinal surgery C7-T1 Family History Family History Sibling , Sister who had a kidney injury as a child resulting in nephrectomy. Later in in life diagnosed with lupus with multiple complications but ultimately of kidney failure. Hypertension Diabetes mellitus CHF (congestive heart failure) Cerebrovascular accident Acute myocardial infarction SLE (systemic lupus erythematosus) Father , in his 80s Acute myocardial infarction Mixed connective tissue disease Mother , She in her 70s of lung cancer after 50 years of tobacco use. Lung cancer Social History Social History (Updated 02/12/20 @ 18:48 by Paola Feldman NP) Social Histo
[2020-06-10] MEDS: fentaNYL CITRATE INJ (*CRX) 100 MCG/2 ML VIAL 25 MCG IV PUSH (07:58)
[2020-06-10 08:13] LABS: Basophils Percent Auto 0.1 % (0.2-1.2); Eosinophils Percent Auto 0.1 % (0-4.4); Hematocrit 38.2 % (37.0-47.0); Hemoglobin 13.3 g/dL (12.0-15.0); Immature Granulocyte Absolute 0.06 K/mm3 (0.00-0.031); Immature Granulocyte Percent A 0.8 % (0-0.5); Lymphocytes Absolute Auto 0.44 K/mm3 (0.9-3.2); Lymphocytes Percent Auto 6.1 % (18.3-44.2); Mean Corpuscular HGB Conc 34.8 g/dl (32-36); Mean Corpuscular Hemoglobin 33.6 pg (26-34); Mean Corpuscular Volume 96.5 fl (80-100); Mean Platelet Volume 8.5 fl (7.4-10.4); Monocytes Absolute Auto 0.7 K/mm3 (0.1-0.6); Monocytes Percent Auto 9.6 % (2.6-8.5); Neutrophils Percent Auto 83.3 % (45.5-73.1); Platelet Count Result 119 k/mm3 (150-375); Red Blood Count 3.96 M/mm3 (4.2-5.4); White Blood Count 7.2 K/mm3 (4.5-10.0)
[2020-06-10 08:26] LABS: Anion Gap 13 mmol/L (8-16); Blood Urea Nitrogen 22 mg/dL (7-17); Calcium 9.7 mg/dL (8.4-10.2); Carbon Dioxide 23 mmol/L (22-30); Chloride 98 mmol/L (98-107); Estimated CRCL calculation 48 ml/min; Estimated Glomerular Filt Rate > 60; Glucose 160 mg/dL (65-105); Potassium 4.4 mmol/L (3.4-5.0); Sodium 134 mmol/L (137-145)
[2020-06-10 10:07] VITALS: BP 178/84; PULSE 71; RESP 13; O2SAT 100
== END 2020-06-10 10:10 | disposition home or self-care (01) ==
PROVIDERS: Emergency Provider Emergency Medicine; PCP Internal Medicine
DX: M54.42 Lumbago with sciatica, left side (principal); I25.10 Atherosclerotic heart disease of native coronary artery without angina pectoris; E78.5 Hyperlipidemia, unspecified; I48.0 Paroxysmal atrial fibrillation; I10 Essential (primary) hypertension; E11.42 Type 2 diabetes mellitus with diabetic polyneuropathy; G25.81 Restless legs syndrome; Z87.440 Personal history of urinary (tract) infections; Z79.82 Long term (current) use of aspirin; Z79.84 Long term (current) use of oral hypoglycemic drugs; Z87.891 Personal history of nicotine dependence
CPT/HCPCS: 36415; 72100; 80048; 85025; 96374; 99284; J3010

== ENCOUNTER 2021-05-25 13:20 | Observation (INO) | payer OTHER, SELFPAY ==
[2021-05-25] VITALS (23 sets, daily range): BP systolic 136–198; BP diastolic 62–76; PULSE 65–78; RESP 15–26; TEMP 36.5–36.7; O2SAT 96–99; BMI 25.8
[2021-05-25 14:10] LABS: Basophils Percent Auto 0.6 % (0.2-1.2); Eosinophils Absolute Auto 0.2 K/mm3 (0-0.3); Eosinophils Percent Auto 4.1 % (0-4.4); Hematocrit 33.3 % (37.0-47.0); Immature Granulocyte Absolute 0.02 K/mm3 (0.00-0.031); Immature Granulocyte Percent A 0.4 % (0-0.5); Lymphocytes Absolute Auto 0.58 K/mm3 (0.9-3.2); Lymphocytes Percent Auto 11.8 % (18.3-44.2); Mean Corpuscular Hemoglobin 37.6 pg (26-34); Mean Corpuscular Volume 104.4 fl (80-100); Mean Platelet Volume 8.6 fl (7.4-10.4); Monocytes Absolute Auto 0.7 K/mm3 (0.1-0.6); Monocytes Percent Auto 13.5 % (2.6-8.5); Neutrophils Absolute Auto 3.4 K/mm3 (1.3-6.7); Neutrophils Percent Auto 69.6 % (45.5-73.1); Platelet Count Result 130 k/mm3 (150-375); Red Blood Count 3.19 M/mm3 (4.2-5.4); Red Cell Distribution Width 11.9 % (11.5-14.5); White Blood Count 4.9 K/mm3 (4.5-10.0)
[2021-05-25 14:22] LABS: INR 1.1; Partial Thromboplastin Time 28.2 SECONDS (22.3-36.8); Prothrombin Time 13.6 Seconds (11.1-14.7)
--- NOTE | 2021-05-25 14:24 | ED.GIBLEED ---
HPI - GI Bleed General Chief complaint: GI Bleed Stated complaint: GI bleeding Time Seen by Provider: 05/25/21 13:29 Source: patient, RN notes reviewed and old records reviewed Mode of arrival: ambulatory Limitations: no limitations History of Present Illness HPI Narrative: This is 80 year old female with history of GI bleed who presents for evaluation GI bleeding. Patient reports having 2 episodes of black stools today. She reports history of GI bleeding without known source. Her paper box maker is Dr. Pan. She has an appointment with Dr. Pan tomorrow regarding her IBS. She reports chronic lower abdominal pain that has been worse over the last 2 days. She has nausea but no vomiting. She denies chest pain, shortness of breath, lightheadedness or dizziness. Related Data Home Medications Medication Instructions Recorded Confirmed Januvia 50 mg PO DAILY 07/09/19 05/25/21 PreserVision AREDS 1 tablet PO BID 07/09/19 05/25/21 Vitamin D3 5,000 unit PO DAILY 07/09/19 05/25/21 bupropion HCl 150 mg PO QAM 07/09/19 05/25/21 carvedilol 12.5 mg PO BID 07/09/19 05/25/21 gabapentin 200 mg PO HS 07/09/19 05/25/21 valsartan 160 mg PO DAILY 07/09/19 05/25/21 aspirin [Adult Low Dose Aspirin] 81 mg PO DAILY 02/12/20 05/25/21 pantoprazole 40 mg PO DAILY 04/04/20 05/25/21 levothyroxine 75 mcg PO DAILY 05/25/21 05/25/21 Allergies Allergy/AdvReac Type Severity Reaction Status Date / Time clarithromycin Allergy Severe RASH Verified 11/25/20 10:12 tetracycline Allergy Severe RASH Verified 11/25/20 10:12 Review of Systems Review of Systems: All systems reviewed & are unremarkable except as noted in HPI and below PMFSH Past Medical History Medical History (Updated 05/26/21 @ 00:12 by Odalis Tom MD) Breast cancer (1997) Status post right breast lumpectomy and radiation. Chronic hyponatremia Coronary artery disease Degenerative arthritis of knee, bilateral GI bleed (01/2020) Secondary to duodenal ulcers. Hemochromatosis History of PFTs Performed April 2019 due to amiodarone use which demonstrated mild air trapping and moderate decreased diffusion capacity. Hyperlipidemia Hypertension Hypothyroidism Irritable bowel syndrome Macular degeneration Obstructive sleep apnea on CPAP Paroxysmal atrial fibrillation History of cardioversion in 07/05/2019. Status post Watchman procedure. Peripheral neuropathy Restless leg syndrome Squamous cell carcinoma of skin Type 2 diabetes mellitus Hemoglobin A1c was 5.2% in July 2020. Surgical History Surgical History (Updated 05/25/21 @ 20:53 by Sury Ivan PA-C) History of bilateral cataract extraction History of colonoscopy with polypectomy History of cystoscopy (2010) Performed by Dr. Sanabria due to micro hematuria biopsies demonstrated benign pathology with cystitis cystica. History of discectomy (1999) C7-T1. History of fusion of cervical spine C7-T1. History of lumpectomy of right breast With lymph node biopsy with breast cancer radiation therapy 1997 for 7 weeks History of lumpectomy of right breast (1997) Presence of Watchman left atrial appendage closure device Status post surgical removal of malignant neoplasm of skin Excision squamous cell carcinoma from the left lower extremity. Family History Family History Sibling , Sister who had a kidney injury as a child resulting in nephrectomy. Later in in life diagnosed with lupus with multiple complications but ultimately of kidney failure. Hypertension Diabetes mellitus CHF (congestive heart failure) Cerebrovascular accident Acute myocardial infarction SLE (systemic lupus erythematosus) Father , in his 80s Acute myocardial infarction Mixed connective tissue disease Mother , She in her 70s of lung cancer after 50 years of tobacco use. Lung cancer Social History Social History (Up
[2021-05-25] MEDS: PANTOPRAZOLE SODIUM IV 40 MG VIAL IV PUSH ×2 (14:42→20:19)
[2021-05-25 15:31] LABS: Alanine Aminotransferase 32 U/L (4-35); Albumin Level 4.3 g/dL (3.5-5.1); Alkaline Phosphatase 62 U/L (38-126); Anion Gap 7 mmol/L (8-16); Aspartate Amino Transferase 31 U/L (14-36); Bilirubin,Total 0.7 mg/dL (0.2-1.3); Blood Urea Nitrogen 22 mg/dL (7-17); Calcium 9.7 mg/dL (8.4-10.2); Carbon Dioxide 26 mmol/L (22-30); Chloride 100 mmol/L (98-107); Estimated CRCL calculation 46 ml/min; Estimated Glomerular Filt Rate > 60; Glucose 126 mg/dL (65-110); Potassium 4.5 mmol/L (3.4-5.0); Sodium 133 mmol/L (137-145)
--- NOTE | 2021-05-25 15:45 | PM.IMHP ---
H&P: HPI History of Present Illness Date/Time: 05/25/21 15:45 Chief Complaint: Dark stools. Narrative: This is a pleasant 80-year-old female with history of gastritis and GI bleed to duodenal ulcers in January 2020 who presented to the emergency department earlier today from home for evaluation of dark stools. The last couple of days she has had mild dyspepsia but nothing significant. This morning she was having lower abdominal cramping and she reports passing two dark, formed stools not long prior to arrival. Her stool was Hemoccult positive on rectal exam and she is being admitted in this setting. She is no longer taking NSAIDs or Plavix though she continues to take a baby aspirin at the direction of her ecdis n navigation operator as she had a Watchman procedure done years ago. She denies vomiting. No significant bloating or belching. Review of Systems Review of Systems: Twelve systems were reviewed. No fever, chills, or sweats. No recent cold or flu symptoms. She denies chest pain, pleuritic pain, and palpitations. No orthopnea, PND, or lower extremity edema. No shortness of breath. Except as documented, all other systems were reviewed and are negative. [facility], [facility] Past Medical History Medical History (Updated 05/25/21 @ 20:53 by Sury Ivan PA-C) Breast cancer (1997) Status post right breast lumpectomy and radiation. Chronic hyponatremia Coronary artery disease Degenerative arthritis of knee, bilateral GI bleed (01/2020) Secondary to duodenal ulcers. Hemochromatosis History of PFTs Performed April 2019 due to amiodarone use which demonstrated mild air trapping and moderate decreased diffusion capacity. Hyperlipidemia Hypertension Hypothyroidism Irritable bowel syndrome Macular degeneration Obstructive sleep apnea on CPAP Paroxysmal atrial fibrillation History of cardioversion in 07/05/2019. Status post Watchman procedure. Peripheral neuropathy Restless leg syndrome Squamous cell carcinoma of skin Type 2 diabetes mellitus Hemoglobin A1c was 5.2% in July 2020. Surgical History Surgical History (Updated 05/25/21 @ 20:53 by Sury Ivan PA-C) History of bilateral cataract extraction History of colonoscopy with polypectomy History of cystoscopy (2010) Performed by Dr. Sanabria due to micro hematuria biopsies demonstrated benign pathology with cystitis cystica. History of discectomy (1999) C7-T1. History of fusion of cervical spine C7-T1. History of lumpectomy of right breast With lymph node biopsy with breast cancer radiation therapy 1997 for 7 weeks History of lumpectomy of right breast (1997) Presence of Watchman left atrial appendage closure device Status post surgical removal of malignant neoplasm of skin Excision squamous cell carcinoma from the left lower extremity. Family History Family History Sibling , Sister who had a kidney injury as a child resulting in nephrectomy. Later in in life diagnosed with lupus with multiple complications but ultimately of kidney failure. Hypertension Diabetes mellitus CHF (congestive heart failure) Cerebrovascular accident Acute myocardial infarction SLE (systemic lupus erythematosus) Father , in his 80s Acute myocardial infarction Mixed connective tissue disease Mother , She in her 70s of lung cancer after 50 years of tobacco use. Lung cancer Social History Social History (Updated 05/25/21 @ 20:50 by Sury Ivan PA-C) Social History: The patient lives in [place] with her of over 50 years. She has 4 children who are healthy. She smoked 1.5 packs of cigarettes per day for 30 years but quit smoking in 1992. She drinks an occasional glass of wine. 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 She designates her , Soto Sorenson, as her surrogate decision maker. Code status: Full code. Meds Home Medications and
[2021-05-25 16:02] LABS: Hematocrit 31.1 % (37.0-47.0); Hemoglobin 11.4 g/dL (12.0-15.0)
[2021-05-25] MEDS: SODIUM CHLORIDE 0.9% IV 1,000 ML 125 ML IV CONT (18:39)
[2021-05-25 21:33] LABS: Hemoglobin 11.5 g/dL (12.0-15.0)
[2021-05-25 21:43] LABS: Hemoglobin A1C 5.2 % (<5.7)
[2021-05-25 22:15] LABS: Iron 118 ug/dL (37-170)
[2021-05-25 22:25] LABS: Percent Iron Saturation 37 % (20-50)
[2021-05-25 22:52] LABS: Folic Acid 10.1 ng/mL (2.76->20)
[2021-05-26] VITALS (12 sets, daily range): BP systolic 89–150; BP diastolic 40–82; PULSE 62–72; RESP 15–23; TEMP 35.7–36.5; O2SAT 96–100
[2021-05-26 04:25] LABS: Hematocrit 32.2 % (37.0-47.0); Hemoglobin 11.3 g/dL (12.0-15.0); Mean Corpuscular HGB Conc 35.1 g/dl (32-36); Mean Corpuscular Hemoglobin 36.9 pg (26-34); Mean Corpuscular Volume 105.2 fl (80-100); Mean Platelet Volume 8.4 fl (7.4-10.4); Platelet Count Result 117 k/mm3 (150-375); Red Blood Count 3.06 M/mm3 (4.2-5.4); Red Cell Distribution Width 11.9 % (11.5-14.5); White Blood Count 4.6 K/mm3 (4.5-10.0)
[2021-05-26 04:40] LABS: Alanine Aminotransferase 32 U/L (4-35); Albumin Level 4.2 g/dL (3.5-5.1); Alkaline Phosphatase 59 U/L (38-126); Anion Gap 9 mmol/L (8-16); Aspartate Amino Transferase 35 U/L (14-36); Blood Urea Nitrogen 20 mg/dL (7-17); Calcium 9.7 mg/dL (8.4-10.2); Carbon Dioxide 24 mmol/L (22-30); Chloride 102 mmol/L (98-107); Estimated CRCL calculation 53 ml/min; Estimated Glomerular Filt Rate > 60; Glucose 125 mg/dL (65-110); Magnesium 1.7 mg/dL (1.6-2.3); Potassium 4.1 mmol/L (3.4-5.0); Sodium 135 mmol/L (137-145)
--- NOTE | 2021-05-26 06:08 | PCRCNOTE ---
When asked pt about CPAP machine that is ordered PRN. Pt stated they are having trouble with theirs at home. They stated they went to the doctor and their doctor stated their apnea isnt that bad and she didnt have to use her cpap. She also stated even if you brought it in here i wouldnt use it. She stated she did not want it and does not use it.
--- NOTE | 2021-05-26 07:19 | WPDGICN ---
Assessment and Plan Assessment and plan (1) Melena: Code(s): K92.1 - Melena Status: Acute Assessment and Plan: Patient identified as having melenic stools. She does have a prior history of ulcer disease. For this reason EGD will be performed. Patient has been maintained on pantoprazole 40mg p.o. daily which will be continued. She should continue to avoid nonsteroidal anti-inflammatory agents. (2) Anemia: Code(s): D64.9 - Anemia, unspecified Status: Acute Assessment and Plan: Patient admitted with essentially normal hemoglobin she has a had a mild decline overnight. Likely related to melenic stools and blood loss. Does not appear to be particularly active but will we be monitored until stable. (3) Peptic ulcer disease: Code(s): K27.9 - Peptic ulcer, site unspecified, unspecified as acute or chronic, without hemorrhage or perforation Status: Acute Assessment and Plan: Patient with a known prior history of peptic ulcer disease. This likely is contributing to her current symptoms. Plan is for EGD to confirm status of her known peptic ulcer disease. (4) IBS (irritable bowel syndrome): Code(s): K58.9 - Irritable bowel syndrome without diarrhea Status: Acute Assessment and Plan: Patient with history of irritable bowel syndrome. She has vague abdominal pains that her chronic. Appear to be related irregular bowel habits. Continue use of fiber supplementation encouraged this point. GI Consult Note Consult date/time: 05/26/21 07:19 HPI: Zhane Sorenson is a 80 year old female presents for evaluation of GI bleeding. Patient in usual state of health at home. Began to notice black stools. This caused her some alarm and she present to the emergency room where she was found to have Hemoccult-positive stools. Patient has had only a mild decline in hemoglobin noted in the ER. Patient denies any obvious blood in her stools. She does have chronic vague abdominal discomfort attributed to irritable bowel syndrome. Patient does have a history of significant GI bleeding 1 year ago. At which time she had a rather large duodenal ulcer. Follow-up endoscopy is were performed in at the last endoscopy 1 year ago she did have mild gastritis. Patient does have a history of atrial fibrillation for which she previously was on anticoagulation. She did have a Watchman procedure of the heart and has had anticoagulation discontinued . she does continue to take an aspirin daily. Review of Systems Review of Systems: All systems reviewed & are unremarkable except as noted in HPI and below PMFSH Past Medical History Medical History (Updated 05/26/21 @ 07:22 by Adonay Pan MD) Breast cancer (1997) Status post right breast lumpectomy and radiation. Chronic hyponatremia Coronary artery disease Degenerative arthritis of knee, bilateral GI bleed (01/2020) Secondary to duodenal ulcers. Hemochromatosis History of PFTs Performed April 2019 due to amiodarone use which demonstrated mild air trapping and moderate decreased diffusion capacity. Hyperlipidemia Hypertension Hypothyroidism Irritable bowel syndrome Macular degeneration Obstructive sleep apnea on CPAP Paroxysmal atrial fibrillation History of cardioversion in 07/05/2019. Status post Watchman procedure. Peripheral neuropathy Restless leg syndrome Squamous cell carcinoma of skin Type 2 diabetes mellitus Hemoglobin A1c was 5.2% in July 2020. Surgical History Surgical History (Updated 05/25/21 @ 20:53 by Sury Ivan PA-C) History of bilateral cataract extraction History of colonoscopy with polypectomy History of cystoscopy (2010) Performed by Dr. Sanabria due to micro hematuria biopsies demonstrated benign pathology with cystitis cystica. History of discectomy (1999) C7-T1. History of fusion of cervical spine C7-T1. History of lumpectomy of right breast With lymph node biopsy with breast c
[2021-05-26] MEDS: VALSARTAN 80 MG TABLET 160 MG PO (08:50)
[2021-05-26] MEDS: carvediloL 12.5 MG TABLET PO ×2 (08:51→20:27)
[2021-05-26] MEDS: PANTOPRAZOLE SODIUM IV 40 MG VIAL IV PUSH ×2 (08:54→20:27)
[2021-05-26 09:09] LABS: Glucose Point of Care 143 mg/dl (65-105)
[2021-05-26 09:30] LABS: Hematocrit 31.1 % (37.0-47.0); Hemoglobin 11.2 g/dL (12.0-15.0)
--- NOTE | 2021-05-26 10:36 | PC.NURSE ---
On 05/26/21, the student, [Fabricio Meehan ], provided care and completed [facility] documentation on this patient. I have reviewed the student's documentation and agree with the findings.
--- NOTE | 2021-05-26 10:53 | PM.IMPN ---
Progress Note: A&P Assessment and Plan (1) Melena: Code(s): K92.1 - Melena Status: Acute (2) Anemia: Code(s): D64.9 - Anemia, unspecified Status: Acute (3) Macrocytosis: Code(s): D75.89 - Other specified diseases of blood and blood-forming organs Status: Acute (4) Thrombocytopenia: Code(s): D69.6 - Thrombocytopenia, unspecified Status: Acute (5) Chronic hyponatremia: Code(s): E87.1 - Hypo-osmolality and hyponatremia Status: Acute (6) Hypertension: Code(s): I10 - Essential (primary) hypertension Status: Acute (7) Type 2 diabetes mellitus: Code(s): E11.9 - Type 2 diabetes mellitus without complications Status: Acute (8) Hypothyroidism: Code(s): E03.9 - Hypothyroidism, unspecified Status: Acute (9) Obstructive sleep apnea on CPAP: Code(s): G47.33 - Obstructive sleep apnea (adult) (pediatric); Z99.89 - Dependence on other enabling machines and devices Status: Acute Additional Plan # Acute GI bleed with melena: Patient presented to the emergency department today after passing 2, formed black stools this morning. She has a history of GI bleed secondary to duodenal ulcers in January 2020. Aspirin held. GI consult and plan for EGD. H and is stable repeat iron studies as well as B12 and folate # mild thrombocytopenia # Chronic hyponatremia # Breast cancer (1997) Status post right breast lumpectomy and radiation. # Coronary artery disease # Degenerative arthritis of knee, bilateral # history of GI bleed (01/2020) Secondary to duodenal ulcers. # Hemochromatosis # Hyperlipidemia # Hypertension # Hypothyroidism # Irritable bowel syndrome # Macular degeneration # Obstructive sleep apnea on CPAP # Paroxysmal atrial fibrillation History of cardioversion in 07/05/2019.Status post Watchman procedure. # Peripheral neuropathy # Restless leg syndrome # Squamous cell carcinoma of skin # Type 2 diabetes mellitus; Hemoglobin A1c was 5.2% in July 2020. Hold oha. SSI # DVT prophylaxis SCDs # full code status Subjective Date/time seen: 05/26/21 10:53 Interval history: HPI:This is a pleasant 80-year-old female with history of gastritis and GI bleed to duodenal ulcers in January 2020 who presented to the emergency department earlier today from home for evaluation of dark stools. The last couple of days she has had mild dyspepsia but nothing significant. This morning she was having lower abdominal cramping and she reports passing two dark, formed stools not long prior to arrival. Her stool was Hemoccult positive on rectal exam and she is being admitted in this setting. She is no longer taking NSAIDs or Plavix though she continues to take a baby aspirin at the direction of her separations scientist as she had a Watchman procedure done years ago. She denies vomiting. No significant bloating or belching. Interval history: She had another bowel movement today with her is dark in color. She reports she is Hungry and waiting for EGD to be done this afternoon. Exam Narrative: General: Well-developed female sitting up in bed no distress. HEENT: Wearing glasses. PERRL, EOMI. Sclerae anicteric. Oral mucosa moist. Oropharynx clear. Neck: Supple. Respiratory: Lungs are clear to auscultation bilaterally. No respiratory distress Cardiovascular: Regular rate and rhythm with S1-S2. Gastrointestinal: Abdomen is soft and nondistended with positive bowel sounds. She is slightly tender to deeper palpation in the lower abdomen. No voluntary guarding or rebound tenderness. Skin: Warm and dry. No rash or lesions on limited exam. Extremities: No cyanosis or clubbing. Trace left lower extremity edema, chronic per patient. Radial and pedal pulses intact. Neurological: Alert. Cranial nerves 2-12 are grossly intact. No gross focal deficits to casual conversation. Psychiatric: Pleasant and cooperative with normal mood and affect. Judgment and insight intact
--- NOTE | 2021-05-26 12:33 | WPDANESEPPF ---
Anes - Initial Pre Proc Eval Procedure: Operation Date: 05/26/21 14:00 Proposed Procedures p Esophagogastroduodenoscopy - Adonay Pan MD Date/Time: 05/26/21 12:33 Surgeon: Lorena Anderson MD Pre Op Diagnosis: Upper GI bleeding Patient Data Age: 80 Gender: F Height: 1.68 m Weight: 72 kg Last Vital Signs Temp 36.4 C 05/26/21 06:00 Pulse 72 05/26/21 08:51 Resp 18 05/26/21 06:00 BP 141/65 H 05/26/21 06:00 Pulse Ox 96 05/26/21 06:00 Allergies Allergy/AdvReac Type Severity Reaction Status Date / Time clarithromycin Allergy Severe RASH Verified 11/25/20 10:12 tetracycline Allergy Severe RASH Verified 11/25/20 10:12 Home Medications Medication Instructions Recorded Confirmed Type Januvia 50 mg PO DAILY 07/09/19 05/25/21 History PreserVision AREDS 1 tablet PO BID 07/09/19 05/25/21 History Vitamin D3 5,000 unit PO DAILY 07/09/19 05/25/21 History bupropion HCl 150 mg PO QAM 07/09/19 05/25/21 History carvedilol 12.5 mg PO BID 07/09/19 05/25/21 History gabapentin 200 mg PO HS 07/09/19 05/25/21 History valsartan 160 mg PO DAILY 07/09/19 05/25/21 History aspirin [Adult Low Dose Aspirin] 81 mg PO DAILY 02/12/20 05/25/21 History pantoprazole 40 mg PO DAILY 04/04/20 05/25/21 History dicyclomine 10 mg capsule 10 mg PO BID PRN 90 Days #180 cap 02/26/21 05/25/21 Rx levothyroxine 75 mcg PO DAILY 05/25/21 05/25/21 History Laboratory Tests 05/25/21 05/25/21 05/25/21 14:03 14:03 14:03 WBC 4.9 K/mm3 K/mm3 (4.5-10.0) RBC 3.19 M/mm3 L M/mm3 (4.2-5.4) Hgb 12.0 g/dL g/dL (12.0-15.0) Hct 33.3 % L % (37.0-47.0) MCV 104.4 fl H fl (80-100) MCH 37.6 pg H pg (26-34) MCHC 36.0 g/dl g/dl (32-36) RDW 11.9 % % (11.5-14.5) Plt Count 130 k/mm3 L k/mm3 (150-375) MPV 8.6 fl fl (7.4-10.4) Immature Gran % (Auto) 0.4 % % (0-0.5) Neut % (Auto) 69.6 % % (45.5-73.1) Lymph % (Auto) 11.8 % L % (18.3-44.2) [place] % (Auto) 13.5 % H % (2.6-8.5) Eos % (Auto) 4.1 % % (0-4.4) Baso % (Auto) 0.6 % % (0.2-1.2) Lymph # (Auto) 0.58 K/mm3 L K/mm3 (0.9-3.2) [place] # (Auto) 0.7 K/mm3 H K/mm3 (0.1-0.6) Eos # (Auto) 0.2 K/mm3 K/mm3 (0-0.3) Baso # (Auto) 0.0 K/mm3 K/mm3 (0.0-0.1) Abs Immat Gran (auto) 0.02 K/mm3 K/mm3 (0.00-0.031) Absolute Neuts (auto) 3.4 K/mm3 K/mm3 (1.3-6.7) Absolute Nucleated RBC 0.0 K/mm3 K/mm3 (0.0-0.012) Nucleated RBC % 0.0 % % (0.0-0.2) PT 13.6 Seconds Seconds (11.1-14.7) INR 1.1 APTT 28.2 SECONDS SECONDS (22.3-36.8) Sodium Potassium Chloride Carbon Dioxide Anion Gap BUN Creatinine Estim Creat Clear Calc Estimated GFR Glucose POC Capillary Glucose Hemoglobin A1c Calcium Magnesium Iron TIBC % Saturation Ferritin Total Bilirubin AST ALT Alkaline Phosphatase Total Protein Albumin Vitamin B12 Folate TSH (Reflex) Blood Type A Positive Antibody Screen Negative 11/01/21 11/01/21 11/01/21 14:49 15:50 21:14 WBC RBC Hgb 11.4 g/dL L g/dL (12.0-15.0) Hct 31.1 % L % (37.0-47.0) MCV MCH MCHC RDW Plt Count MPV Immature Gran % (Auto) Neut % (Auto) Lymph % (Auto) [place] % (Auto) Eos % (Auto) Baso % (Auto) Lymph # (Auto) [place] # (Auto) Eos # (
[2021-05-26 12:36] LABS: Glucose Point of Care 128 mg/dl (65-105)
--- NOTE | 2021-05-26 12:45 | PC.NURSE ---
patient to GI lab per w/c
[2021-05-26] MEDS: LACTATED RINGERS 1,000 ML 150 ML IV CONT (13:12)
--- NOTE | 2021-05-26 14:48 | PC.NURSE ---
patient returned from GI lab
[2021-05-26] MEDS: OPTI-GEN TAB 1 TABLET PO (16:48)
[2021-05-26] MEDS: PEG (High)/E-LYTE SOLN 4,000 ML BTL 4000 ML PO (16:49)
[2021-05-26 16:50] LABS: Glucose Point of Care 131 mg/dl (65-105)
[2021-05-26] MEDS: GABAPENTIN 100 MG CAPSULE 200 MG PO (20:26)
[2021-05-26 20:49] LABS: Glucose Point of Care 109 mg/dl (65-105)
[2021-05-26] MEDS: DICYCLOMINE HCL 10 MG CAPSULE PO (22:12)
[2021-05-27] VITALS (7 sets, daily range): BP systolic 108–150; BP diastolic 46–57; PULSE 63–73; RESP 15–25; TEMP 36.2–36.7; O2SAT 98–100
[2021-05-27 07:54] LABS: Glucose Point of Care 127 mg/dl (65-105)
[2021-05-27] MEDS: PANTOPRAZOLE SODIUM IV 40 MG VIAL IV PUSH (08:23)
--- NOTE | 2021-05-27 09:20 | WPDANESPN ---
Anes - Prog Note Post-Op Date/Time: 05/27/21 09:20 Cardiovascular status: normal Respiratory status: normal Airway patency: baseline Mental status: baseline Post-Op hydration status: normal Vital Signs: Last Vital Signs Temp 36.5 C 05/27/21 08:04 Pulse 69 05/27/21 09:01 Resp 16 05/27/21 09:01 BP 136/48 L 05/27/21 08:04 Pulse Ox 99 05/27/21 09:01 Pain Score (VAS): 0 I/O: Intake & Output 05/26/21 05/27/21 05/27/21 23:59 07:59 15:59 Intake Total 490 200 Balance 490 200 Laboratory Tests 05/26/21 09:14 05/26/21 03:46 05/26/21 05/26/21 05/26/21 09:14 12:27 16:40 Hgb 11.2 L Hct 31.1 L POC Capillary Glucose 128 H 131 H 05/26/21 05/27/21 20:30 07:30 Hgb Hct POC Capillary Glucose 109 H 127 H Post-procedural complaints: none Patient Feedback: Patient satisfied with anesthetic care.
[2021-05-27 11:29] LABS: Glucose Point of Care 135 mg/dl (65-105)
[2021-05-27] MEDS: LACTATED RINGERS 1,000 ML 150 ML IV CONT (12:26)
--- NOTE | 2021-05-27 12:42 | WPDANESEPPF ---
Anes - Initial Pre Proc Eval Procedure: Operation Date: 05/26/21 14:00 Proposed Procedures p Esophagogastroduodenoscopy - Adonay Pan MD Operation Date: 05/27/21 13:00 Proposed Procedures p Colonoscopy - Adonay Pan MD Date/Time: 05/27/21 12:42 Surgeon: Lorena Anderson MD Pre Op Diagnosis: Upper GI bleeding Patient Data Age: 80 Gender: F Height: 1.68 m Weight: 76 kg Last Vital Signs Temp 98.1 F 05/27/21 12:04 Pulse 68 05/27/21 12:04 Resp 18 05/27/21 12:04 BP 150/56 H 05/27/21 12:04 Pulse Ox 98 05/27/21 12:04 Allergies Allergy/AdvReac Type Severity Reaction Status Date / Time clarithromycin Allergy Severe RASH Verified 05/27/21 11:56 tetracycline Allergy Severe RASH Verified 05/27/21 11:56 Home Medications Medication Instructions Recorded Confirmed Type Januvia 50 mg PO DAILY 07/09/19 05/25/21 History PreserVision AREDS 1 tablet PO BID 07/09/19 05/25/21 History Vitamin D3 5,000 unit PO DAILY 07/09/19 05/25/21 History bupropion HCl 150 mg PO QAM 07/09/19 05/25/21 History carvedilol 12.5 mg PO BID 07/09/19 05/25/21 History gabapentin 200 mg PO HS 07/09/19 05/25/21 History valsartan 160 mg PO DAILY 07/09/19 05/25/21 History aspirin [Adult Low Dose Aspirin] 81 mg PO DAILY 02/12/20 05/25/21 History pantoprazole 40 mg PO DAILY 04/04/20 05/25/21 History dicyclomine 10 mg capsule 10 mg PO BID PRN 90 Days #180 cap 02/26/21 05/25/21 Rx levothyroxine 75 mcg PO DAILY 05/25/21 05/25/21 History Laboratory Tests 05/26/21 05/26/21 05/27/21 16:40 20:30 07:30 POC Capillary Glucose 131 mg/dl H mg/dl 109 mg/dl H mg/dl 127 mg/dl H mg/dl (65-105) (65-105) (65-105) 05/27/21 11:26 POC Capillary Glucose 135 mg/dl H mg/dl (65-105) Patient hx anesthesia problems: none Family hx anesthesia problems: none Results Review: All pre-operative results and documents have been reviewed as part of the pre-operative evaluation. [facility] Past Medical History Medical History (Updated 05/26/21 @ 07:22 by Adonay Pan MD) Breast cancer (1997) Status post right breast lumpectomy and radiation. Chronic hyponatremia Coronary artery disease Degenerative arthritis of knee, bilateral GI bleed (01/2020) Secondary to duodenal ulcers. Hemochromatosis History of PFTs Performed April 2019 due to amiodarone use which demonstrated mild air trapping and moderate decreased diffusion capacity. Hyperlipidemia Hypertension Hypothyroidism Irritable bowel syndrome Macular degeneration Obstructive sleep apnea on CPAP Paroxysmal atrial fibrillation History of cardioversion in 07/05/2019. Status post Watchman procedure. Peripheral neuropathy Restless leg syndrome Squamous cell carcinoma of skin Type 2 diabetes mellitus Hemoglobin A1c was 5.2% in July 2020. Surgical History Surgical History (Updated 05/25/21 @ 20:53 by Sury Ivan PA-C) History of bilateral cataract extraction History of colonoscopy with polypectomy History of cystoscopy (2010) Performed by Dr. Sanabria due to micro hematuria biopsies demonstrated benign pathology with cystitis cystica. History of discectomy (1999) C7-T1. History of fusion of cervical spine C7-T1. History of lumpectomy of right breast With lymph node biopsy with breast cancer radiation therapy 1997 for 7 weeks History of lumpectomy of right breast (1997) Presence of Watchman left atrial appendage closure device Status post surgical removal of malignant neoplasm of skin Excision squamous cell carcinoma from the left lower extremity. Family History Family History Sibling , Sister who had a kidney injury as a child resulting in nephrectomy. Later in in life diagnosed with lupus with multiple complications but ultimately of kidney failure. Hypertension Diabetes mellitus CHF (congestive heart failure) Cerebrovascular accident Acute myocardial infarction S
[2021-05-27 13:18] LABS: Glucose Point of Care 107 mg/dl (65-105)
--- NOTE | 2021-05-27 13:45 | PC.NURSE ---
On 05/27/21, the student, Meseret Hatfield, provided care and completed [facility] documentation on this patient. I have reviewed the student's documentation and agree with the findings.
--- NOTE | 2021-05-27 15:17 | PM.DS ---
DS: Admitting Diagnosis Discharge Date 05/27/21 Admitting Diagnosis (1) Melena: Code(s): K92.1 - Melena Status: Acute (2) Anemia: Code(s): D64.9 - Anemia, unspecified Status: Acute (3) Macrocytosis: Code(s): D75.89 - Other specified diseases of blood and blood-forming organs Status: Acute (4) Thrombocytopenia: Code(s): D69.6 - Thrombocytopenia, unspecified Status: Acute (5) Chronic hyponatremia: Code(s): E87.1 - Hypo-osmolality and hyponatremia Status: Acute (6) Hypertension: Code(s): I10 - Essential (primary) hypertension Status: Acute (7) Type 2 diabetes mellitus: Code(s): E11.9 - Type 2 diabetes mellitus without complications Status: Acute (8) Hypothyroidism: Code(s): E03.9 - Hypothyroidism, unspecified Status: Acute (9) Obstructive sleep apnea on CPAP: Code(s): G47.33 - Obstructive sleep apnea (adult) (pediatric); Z99.89 - Dependence on other enabling machines and devices Status: Acute DS: Discharge Diagnosis Discharge Diagnosis (1) Melena: Code(s): K92.1 - Melena Status: Acute (2) Anemia: Code(s): D64.9 - Anemia, unspecified Status: Acute (3) Macrocytosis: Code(s): D75.89 - Other specified diseases of blood and blood-forming organs Status: Acute (4) Thrombocytopenia: Code(s): D69.6 - Thrombocytopenia, unspecified Status: Acute (5) Chronic hyponatremia: Code(s): E87.1 - Hypo-osmolality and hyponatremia Status: Acute (6) Hypertension: Code(s): I10 - Essential (primary) hypertension Status: Acute (7) Type 2 diabetes mellitus: Code(s): E11.9 - Type 2 diabetes mellitus without complications Status: Acute (8) Hypothyroidism: Code(s): E03.9 - Hypothyroidism, unspecified Status: Acute (9) Obstructive sleep apnea on CPAP: Code(s): G47.33 - Obstructive sleep apnea (adult) (pediatric); Z99.89 - Dependence on other enabling machines and devices Status: Acute (10) Hyperlipidemia: Code(s): E78.5 - Hyperlipidemia, unspecified Status: Acute (11) Internal hemorrhoids: Code(s): K64.8 - Other hemorrhoids Status: Acute (12) Diverticulosis of large intestine without perforation or abscess without bleeding: Code(s): K57.30 - Diverticulosis of large intestine without perforation or abscess without bleeding Status: Acute (13) Colon polyps: Code(s): K63.5 - Polyp of colon Status: Acute DS: Summary Hospital Course Reason for hospitalization: [facility] Hospital Course: 80-year-old female admitted with acute GI bleeding. Her medical history was significant for bleeding gastric ulcers which required multiple blood transfusions. During hospitalization she underwent EGD and colonoscopy. No source of acute GI bleeding found, however, patient noted to have internal hemorrhoids, diverticulosis without perforation or abscess, polyps of the ascending and descending colon. 1 of the sites was suspected to be source of her bleeding. Her hemoglobin remained stable during this admission, and she had a benign clinical course. Patient was subsequently discharged home in stable condition tolerating p.o. cardiac diabetic diet. Indications were given to her to follow-up with her PCP and Gastroenterology in the future and to return to ER if bleeding begins again. Status at Discharge Functional status at discharge: independent ambulation Overall status at discharge: patient is back to baseline Time Spent with Patient Time attestation: Total time spent providing and/or coordinating discharge services: Time spent: Greater than 30 minutes Exam Narrative: General: Well-developed female sitting up in bed no distress. HEENT: Wearing glasses. PERRL, EOMI. Sclerae anicteric. Oral mucosa moist. Oropharynx clear. Neck: Supple. Respiratory: Lungs are clear to auscultation bilater
== END 2021-05-27 16:00 | disposition home or self-care (01) ==
LOC: ANHED 13:29 → ANH3MEDSUR 05-26 00:12
PROVIDERS: Internal Medicine Gastroenterology; Physician Assistant; Admitting Provider Internal Medicine; Emergency Provider General Practice; Visit Provider Hospitalist
PROC: 0DJ08ZZ Inspection of Upper Intestinal Tract, Via Natural or Artificial Opening Endoscopic (ICD-10-PCS; CPT 43235; principal; 2021-05-26 14:00)
PROC: 0DJD8ZZ Inspection of Lower Intestinal Tract, Via Natural or Artificial Opening Endoscopic (ICD-10-PCS; CPT 45378; principal; 2021-05-27 13:00)
DX: K63.5 Polyp of colon (principal); K92.1 Melena; K57.30 Diverticulosis of large intestine without perforation or abscess without bleeding; K64.8 Other hemorrhoids; K31.7 Polyp of stomach and duodenum; K27.9 Peptic ulcer, site unspecified, unspecified as acute or chronic, without hemorrhage or perforation; K58.9 Irritable bowel syndrome, unspecified; D64.9 Anemia, unspecified; D69.6 Thrombocytopenia, unspecified; E87.1 Hypo-osmolality and hyponatremia; E11.42 Type 2 diabetes mellitus with diabetic polyneuropathy; E78.5 Hyperlipidemia, unspecified; E03.9 Hypothyroidism, unspecified; G47.33 Obstructive sleep apnea (adult) (pediatric); I10 Essential (primary) hypertension; Z85.3 Personal history of malignant neoplasm of breast; Z95.818 Presence of other cardiac implants and grafts; Z87.891 Personal history of nicotine dependence; Z79.84 Long term (current) use of oral hypoglycemic drugs
CPT/HCPCS: 43251; 45385; 36415; 80053; 82607; 82728; 82746; 82948; 83036; 83540; 83550; 83735; 84443; 85014; 85018; 85025; 85027; 85610; 85730; 86850; 86900; 86901; 88305; 96374; 96375; 96376; 99285; A9270; C9113; G0378; J0131; J2001; J2704; J7030; J7120

== ENCOUNTER 2021-10-10 13:34 | Emergency (ER) | payer OTHER, SELFPAY ==
--- NOTE | ~2021-10-10 | CT_ITS ---
EXAMINATION: CT facial & cervical spine wo DATE: 10/10/2021 14:34 INDICATION: Fall. Right head and neck injury. Right periorbital hematoma. TECHNIQUE: Computed tomography (CT) of the facial bones and maxillofacial region was performed withou t intravenous contrast. Automated exposure control and iterative reconstruction technique were employ ed. Exam dose: 227.30 mGy-cm total exam DLP. COMPARISON: None. FINDINGS: Very prominent right frontal cephalhematoma and right periorbital hematoma. The frontozygom atic sutures, nasal bones, zygomatic arches, anterior maxillary spine, orbital and maxillary sinus wa lls are intact. The paranasal sinuses are normally aerated, without fluid level. No mandibular fracture is evident. Degenerative change at the temporomandibular joints. There is a reversal of cervical curvature which may be due to muscle spasm. There is dextroscoliosis of the cervical and upper thoracic spine. C1 and C2 are normally aligned and the odontoid process is intact. No fracture or dislocation or lock ed facet or prevertebral soft tissue swelling. There is slight anterolisthesis at C3-4. There is moderately prominent degenerative disease at C4-5. There is moderately severe degenerative disc disease at C5-6 and C6-7. There is incomplete segmentation at the anterior and posterior elements at C7-T1, likely congenital. There is degenerative change at the apophyseal joints throughout the cervical spine. There is uncover tebral joint spurring in the mid and particularly lower cervical spine. 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 Reviewed, dictated and finalized at [facility]. 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
--- NOTE | ~2021-10-10 | CT_ITS ---
EXAMINATION: CT brain wo con DATE: 10/10/2021 14:34 INDICATION: Fall. Right periorbital hematoma TECHNIQUE: Computed tomography (CT) of the head was performed without intravenous contrast. The mA wa s adjusted according to patient size. Iterative reconstruction technique was employed. Exam dose: 60 5.33 mGy-cm total exam DLP. COMPARISON: None FINDINGS: Very prominent right periorbital hematoma and right frontal cephalohematoma No skull fracture or orbital fracture is detected. The medial and inferior vu and remaining orbita l vu appear intact without blowout fracture. No intracranial mass lesion or hemorrhage or cerebrovascular accident. No midline shift or mass effec t effect. No subdural or epidural hematoma. Bilateral carotid siphon internal carotid artery and vertebral artery and basilar artery calcificatio ns are noted. There is nonspecific diminished attenuation of the cerebral white matter, likely due to chronic small vessel ischemic changes. The mastoid air cells and included paranasal sinuses are normally developed and aerated.. IMPRESSION: Prominent right periorbital hematoma extending into right frontal cephalohematoma; no sku ll fracture or acute intracranial finding is noted Reviewed, dictated and finalized at [facility]. Reviewed, dictated and finalized at [facility]. IMPRESSION: Prominent right periorbital hematoma extending into right frontal c ephalohematoma; no skull fracture or acute intracranial finding is noted
[2021-10-10 13:36] VITALS: BP 182/84; PULSE 74; RESP 16; TEMP 36.4; O2SAT 98
--- NOTE | 2021-10-10 14:02 | ED.HEATRA ---
HPI - Head Injury General Chief complaint: Head Injury Stated complaint: fall, head injury Time Seen by Provider: 10/10/21 13:41 Source: RN notes reviewed History of Present Illness HPI Narrative: Patient presents emergency department from home for fall. Patient states just prior to arrival she had tripped going on the last stair and had fallen on the floor striking her face she notes swelling and ecchymosis over the right forehead down to the right superior eye she also states that she had epistaxis prior to arrival but that is resolved patient also notes swelling to her right lower lip. She denies any loose or avulsed teeth. She denies loss of consciousness, numbness or tingling in the extremities, chest pain, shortness of breath, dull pain nausea vomiting or any other symptoms. Patient states she is on an aspirin daily Related Data Home Medications Medication Instructions Recorded Confirmed Januvia 50 mg PO DAILY 07/09/19 05/25/21 PreserVision AREDS 1 tablet PO BID 07/09/19 05/25/21 Vitamin D3 5,000 unit PO DAILY 07/09/19 05/25/21 bupropion HCl 150 mg PO QAM 07/09/19 05/25/21 carvedilol 12.5 mg PO BID 07/09/19 05/25/21 gabapentin 200 mg PO HS 07/09/19 05/25/21 valsartan 160 mg PO DAILY 07/09/19 05/25/21 aspirin [Adult Low Dose Aspirin] 81 mg PO DAILY 02/12/20 05/25/21 pantoprazole 40 mg PO DAILY 04/04/20 05/25/21 levothyroxine 75 mcg PO DAILY 05/25/21 05/25/21 Allergies Allergy/AdvReac Type Severity Reaction Status Date / Time clarithromycin Allergy Severe RASH Verified 10/10/21 13:36 tetracycline Allergy Severe RASH Verified 10/10/21 13:36 Review of Systems Review of Systems: Gen.: Denies fevers or chills Eyes: Denies eye pain or visual change ENT: See HPI Respiratory: Denies shortness of breath or cough CV: Denies chest pain or palpitations GI: Denies abdominal pain nausea, emesis or diarrhea Musculoskeletal: Denies back pain or muscle pain Neuro: Denies numbness, tingling, weakness or focal weakness Skin: Denies rash Except as documented, all other systems reviewed and negative PMFSH Past Medical History Medical History Breast cancer (1997) Status post right breast lumpectomy and radiation. Chronic hyponatremia Coronary artery disease Degenerative arthritis of knee, bilateral GI bleed (01/2020) Secondary to duodenal ulcers. Hemochromatosis History of PFTs Performed April 2019 due to amiodarone use which demonstrated mild air trapping and moderate decreased diffusion capacity. Hyperlipidemia Hypertension Hypothyroidism Irritable bowel syndrome Macular degeneration Obstructive sleep apnea on CPAP Paroxysmal atrial fibrillation History of cardioversion in 07/05/2019. Status post Watchman procedure. Peripheral neuropathy Restless leg syndrome Squamous cell carcinoma of skin Type 2 diabetes mellitus Hemoglobin A1c was 5.2% in July 2020. Surgical History Surgical History (Updated 05/25/21 @ 20:53 by Sury Ivan PA-C) History of bilateral cataract extraction History of colonoscopy with polypectomy History of cystoscopy (2010) Performed by Dr. Sanabria due to micro hematuria biopsies demonstrated benign pathology with cystitis cystica. History of discectomy (1999) C7-T1. History of fusion of cervical spine C7-T1. History of lumpectomy of right breast With lymph node biopsy with breast cancer radiation therapy 1997 for 7 weeks History of lumpectomy of right breast (1997) Presence of Watchman left atrial appendage closure device Status post surgical removal of malignant neoplasm of skin Excision squamous cell carcinoma from the left lower extremity. Family History Family History Sibling , Sister who had a kidney injury as a child resulting in nephrectomy. Later in in life diagnosed with lupus with multiple complications but ultimately of kidney failure. Hyperten
[2021-10-10] MEDS: ACETAMINOPHEN 500 MG TABLET 1000 MG PO (15:29)
== END 2021-10-10 15:33 | disposition home or self-care (01) ==
PROVIDERS: Emergency Provider Emergency Medicine
DX: S00.11XA Contusion of right eyelid and periocular area, initial encounter (principal); E11.42 Type 2 diabetes mellitus with diabetic polyneuropathy; I48.0 Paroxysmal atrial fibrillation; I25.10 Atherosclerotic heart disease of native coronary artery without angina pectoris; E78.5 Hyperlipidemia, unspecified; I10 Essential (primary) hypertension; E87.1 Hypo-osmolality and hyponatremia; E03.9 Hypothyroidism, unspecified; K58.9 Irritable bowel syndrome, unspecified; H35.30 Unspecified macular degeneration; M17.0 Bilateral primary osteoarthritis of knee; G47.33 Obstructive sleep apnea (adult) (pediatric); G25.81 Restless legs syndrome; Z85.3 Personal history of malignant neoplasm of breast; Z85.828 Personal history of other malignant neoplasm of skin; Z79.84 Long term (current) use of oral hypoglycemic drugs; Z79.82 Long term (current) use of aspirin; Z98.42 Cataract extraction status, left eye; Z98.41 Cataract extraction status, right eye; Z98.1 Arthrodesis status; Z87.891 Personal history of nicotine dependence; W10.9XXA Fall (on) (from) unspecified stairs and steps, initial encounter
CPT/HCPCS: 70450; 70486; 72125; 99284; A9270

== ENCOUNTER 2022-04-27 16:56 | Emergency (ER) | payer OTHER, SELFPAY ==
--- NOTE | ~2022-04-27 | XR_ITS ---
EXAMINATION: XR chest 2V Exam Date/Time: 04/27/2022 17:28 CDT HISTORY: LETHARGY, HEART PALPATATIONS Comparison: 01/12/2020. RESULT: Lines, tubes, and devices: Atrial occlusion device. Right axillary surgical clips. Lungs and pleura: Right upper lobe granuloma. Senescent and possibly emphysematous change. Cardiomediastinal silhouette: Stable. Other: No acute osseous or upper abdominal finding. IMPRESSION: No acute cardiopulmonary process. Reviewed, dictated and finalized at [facility].
--- NOTE | 2022-04-27 16:59 | ECG_ITS ---
Measurements Intervals [place] Rate: 84 P: -15 IA: 194 QRS: 31 QRSD: 88 T: 32 QT: 339 QTc: 403 Interpretive Statements SINUS RHYTHM WITH OCCASIONAL SUPRAVENTRICULAR PREMATURE COMPLEXES POSSIBLE RIGHT VENTRICULAR CONDUCTION DELAY [RSR (QR) IN V1/V2] BORDERLINE ECG COMPARED TO ECG 02/12/2020 10:25:46 NO SIGNIFICANT CHANGES Electronically Signed On 04-27-2022 17:11:31 CDT by Aguila Latif M.D.
[2022-04-27 17:27] LABS: Basophils Percent Auto 0.6 % (0.2-1.2); Eosinophils Absolute Auto 0.1 K/mm3 (0-0.3); Eosinophils Percent Auto 1.7 % (0-4.4); Hematocrit 37.8 % (37.0-47.0); Hemoglobin 13.7 g/dL (12.0-15.0); Immature Granulocyte Absolute 0.02 K/mm3 (0.00-0.031); Immature Granulocyte Percent A 0.4 % (0-0.5); Lymphocytes Absolute Auto 0.44 K/mm3 (0.9-3.2); Lymphocytes Percent Auto 9.4 % (18.3-44.2); Mean Corpuscular HGB Conc 36.2 g/dl (32-36); Mean Corpuscular Hemoglobin 36.2 pg (26-34); Mean Platelet Volume 8.3 fl (7.4-10.4); Monocytes Absolute Auto 0.7 K/mm3 (0.1-0.6); Monocytes Percent Auto 13.9 % (2.6-8.5); Neutrophils Absolute Auto 3.5 K/mm3 (1.3-6.7); Platelet Count Result 142 k/mm3 (150-375); Red Blood Count 3.78 M/mm3 (4.2-5.4); White Blood Count 4.7 K/mm3 (4.5-10.0)
[2022-04-27 17:40] LABS: Alanine Aminotransferase 24 U/L (6-35); Albumin Level 4.5 g/dL (3.5-5.1); Alkaline Phosphatase 70 U/L (38-126); Anion Gap 14 mmol/L (8-16); Aspartate Amino Transferase 27 U/L (14-36); Bilirubin,Total 0.8 mg/dL (0.2-1.3); Blood Urea Nitrogen 15 mg/dL (7-17); Calcium 9.3 mg/dL (8.4-10.2); Carbon Dioxide 20 mmol/L (22-30); Chloride 94 mmol/L (98-107); Estimated Glomerular Filt Rate > 60; Glucose 149 mg/dL (65-110); Potassium 4.2 mmol/L (3.4-5.0); Sodium 128 mmol/L (137-145)
[2022-04-27 17:52] VITALS: BP 184/65; PULSE 78; RESP 16; TEMP 36.4; O2SAT 99
--- NOTE | 2022-04-27 21:46 | PC.NURSE ---
Patient called x1 to place in exam room without response.
--- NOTE | 2022-04-27 22:45 | PC.NURSE ---
Patient called for a second time for placement in exam room. Patient did not respond. Patient was not seen in the waiting room. Patient is assumed to have left without being seen.
== END 2022-04-27 21:45 | disposition left against medical advice (07) ==
LOC: ANHED 22:48
PROVIDERS: Emergency Provider Emergency Medicine
DX: R00.2 Palpitations (principal); Z53.21 Procedure and treatment not carried out due to patient leaving prior to being seen by health care provider
CPT/HCPCS: 36415; 71046; 80053; 85025; 93005; 99199

== ENCOUNTER 2023-04-03 10:34 | Emergency (ER) | payer OTHER, SELFPAY ==
--- NOTE | ~2023-04-03 | XR_ITS ---
XR chest 2V DATE: 04/03/2023 11:01 INDICATION: Palpitations. History of atrial fibrillation TECHNIQUE: PA and lateral views COMPARISON: 04/27/2022 2 view chest FINDINGS: Atrial septal closure device. Normal heart size. Thoracic and abdominal aortic calcificatio n. There is old pulmonary granulomatous disease. Mild bilateral apical capping. Moderate bilateral hyperinflation. No pulmonary infiltrate or consolid ation, pleural effusion or pulmonary vascular congestion or pneumothorax is detected. Right breast shadow is considerably smaller than left. Osteopenia. IMPRESSION: No active cardiopulmonary disease Thoracic and abdominal aortic atherosclerotic calcification Osteopenia Reviewed, dictated and finalized at location [facility].
--- NOTE | 2023-04-03 10:35 | ECG_ITS ---
Measurements Intervals [place] Rate: 72 P: CO: 0 QRS: 26 QRSD: 89 T: 30 QT: 360 QTc: 395 Interpretive Statements PAPITO [place]Y ATRIAL PREMATURE COMPLEXES INCOMPLETE RIGHT BUNDLE BRANCH BLOCK BORDERLINE T WAVE ABNORMALITY- ANTERIOR LEADS BASELINE ARTIFACT- I, II, III, AVR BORDERLINE ECG COMPARED TO ECG 04/27/2022 17:06:59 NO SIGNIFICANT CHANGES Electronically Signed On 04-03-2023 12:25:49 CDT by Epi Walker D.O.
[2023-04-03 10:46] VITALS: BP 157/66; PULSE 73; RESP 16; TEMP 36.6; O2SAT 100
[2023-04-03 10:53] LABS: Basophils Percent Auto 0.6 % (0.2-1.2); Eosinophils Percent Auto 0.7 % (0-4.4); Hematocrit 35.8 % (37.0-47.0); Hemoglobin 12.7 g/dL (12.0-15.0); Immature Granulocyte Absolute 0.02 K/mm3 (0.00-0.031); Immature Granulocyte Percent A 0.4 % (0-0.5); Lymphocytes Absolute Auto 0.41 K/mm3 (0.9-3.2); Lymphocytes Percent Auto 7.6 % (18.3-44.2); Mean Corpuscular HGB Conc 35.5 g/dl (32-36); Mean Corpuscular Hemoglobin 36.2 pg (26-34); Mean Platelet Volume 8.3 fl (7.4-10.4); Monocytes Absolute Auto 0.6 K/mm3 (0.1-0.6); Monocytes Percent Auto 10.9 % (2.6-8.5); Neutrophils Absolute Auto 4.3 K/mm3 (1.3-6.7); Neutrophils Percent Auto 79.8 % (45.5-73.1); Platelet Count Result 141 k/mm3 (150-375); Red Blood Count 3.51 M/mm3 (4.2-5.4); Red Cell Distribution Width 11.5 % (11.5-14.5); White Blood Count 5.4 K/mm3 (4.5-10.0)
[2023-04-03 11:01] LABS: Prothrombin Time 13.7 Seconds (11.1-14.7)
[2023-04-03 11:02] LABS: Partial Thromboplastin Time 26.1 SECONDS (22.3-36.8)
[2023-04-03 11:05] LABS: Alanine Aminotransferase 22 U/L (6-35); Albumin Level 4.6 g/dL (3.5-5.1); Alkaline Phosphatase 61 U/L (38-126); Anion Gap 12 mmol/L (8-16); Aspartate Amino Transferase 26 U/L (14-36); Blood Urea Nitrogen 20 mg/dL (7-17); Calcium 9.4 mg/dL (8.4-10.2); Carbon Dioxide 23 mmol/L (22-30); Chloride 97 mmol/L (98-107); Estimated CRCL calculation 45 ml/min; Estimated Glomerular Filt Rate > 60; Glucose 124 mg/dL (65-110); Lipase 128 U/L (23-300); Potassium 4.3 mmol/L (3.4-5.0); Sodium 132 mmol/L (137-145)
[2023-04-03 11:17] LABS: Troponin I < 0.012 ng/mL (0.000-0.034)
[2023-04-03 11:47] VITALS: PULSE 76
[2023-04-03 12:49] LABS: Magnesium 1.8 mg/dL (1.6-2.3)
[2023-04-03 13:28] VITALS: BP 151/60; PULSE 67; RESP 20; O2SAT 98
--- NOTE | 2023-04-03 13:31 | ED.ARRPALP ---
HPI - Arrhythmia/Palpitations General Chief Complaint: Arrhythmia/Palpitations Stated Complaint: heart is funny Time Seen by Provider: 04/03/23 11:59 History of Present Illness HPI narrative: This is an 82-year-old female, past history of paroxysmal A-fib status post Watchman procedure, presents to the emergency department for suspected A-fib. The patient states she noticed her heart rate felt increased this morning. She checked her watch and stated her rate was 103. A home EKG device was unable to determine her rhythm. She denies chest pain, shortness of breath, loss of consciousness, or weakness/numbness. She states she has had no symptoms since being in the emergency room. Related Data Home Medications Medication Instructions Recorded Confirmed bupropion HCl 150 mg 24 hr tablet, 150 mg PO QAM 07/09/19 03/23/23 extended release carvedilol 12.5 mg tablet 12.5 mg PO BID 07/09/19 03/23/23 cholecalciferol (vitamin D3) 100 5,000 unit PO DAILY 07/09/19 03/23/23 mcg (4,000 unit) capsule (Vitamin D3) valsartan 80 mg tablet 160 mg PO DAILY 07/09/19 03/23/23 vitamins A,C,X-uidw-klhaem 2,148 1 tablet PO BID 07/09/19 03/23/23 mcg-113 mg-45 mg-17.4 mg tablet (PreserVision AREDS) aspirin 81 mg tablet,delayed 81 mg PO DAILY 02/12/20 03/23/23 release (Adult Low Dose Aspirin) pantoprazole 40 mg tablet,delayed 40 mg PO DAILY 04/04/20 03/23/23 release levothyroxine 50 mcg capsule 50 mcg PO DAILY 04/05/22 03/23/23 Allergies Allergy/AdvReac Type Severity Reaction Status Date / Time clarithromycin Allergy Severe RASH Verified 03/23/23 08:58 tetracycline Allergy Severe RASH Verified 03/23/23 08:58 Review of Systems Review of Systems: CONSTITUTIONAL: Denies fever, chills, or sweats. CARDIOVASCULAR: Palpitations now resolved denies chest pain, or edema. RESPIRATORY: Denies cough or dyspnea. GASTROINTESTINAL: Denies abdominal pain, nausea, vomiting, or diarrhea. GENITOURINARY: Denies dysuria or hematuria. SKIN: Denies rash or itching. MUSCULOSKELETAL: Denies back pain, joint pain, or myalgia. NEUROLOGIC: Denies headache, numbness, dizziness, or weakness. PSYCHIATRIC: Denies anxiety or depression. [facility] Past Medical History Medical History Arthritis of left hand Breast cancer (1997) Status post right breast lumpectomy and radiation. Chronic hyponatremia Coronary artery disease Degenerative arthritis of knee, bilateral GI bleed (01/2020) Secondary to duodenal ulcers. Hemochromatosis History of PFTs Performed April 2019 due to amiodarone use which demonstrated mild air trapping and moderate decreased diffusion capacity. Hyperlipidemia Hypertension Hypothyroidism Irritable bowel syndrome Macular degeneration Obstructive sleep apnea on CPAP Paroxysmal atrial fibrillation History of cardioversion in 07/05/2019. Status post Watchman procedure. Peripheral neuropathy Restless leg syndrome Right rotator cuff tear Squamous cell carcinoma of skin Type 2 diabetes mellitus Hemoglobin A1c was 5.2% in July 2020. Surgical History Surgical History History of bilateral cataract extraction History of colonoscopy with polypectomy History of cystoscopy (2010) Performed by Dr. Sanabria due to micro hematuria biopsies demonstrated benign pathology with cystitis cystica. History of discectomy (1999) C7-T1. History of fusion of cervical spine C7-T1. History of lumpectomy of right breast With lymph node biopsy with breast cancer radiation therapy 1997 for 7 weeks History of lumpectomy of right breast (1997) Presence of Watchman left atrial appendage closure device Status post surgical removal of malignant neoplasm of skin Excision squamous cell carcinoma from the left lower extremity. Family History Family History Sibling , Sister who had
== END 2023-04-03 13:38 | disposition home or self-care (01) ==
PROVIDERS: Emergency Medicine; Emergency Provider Preventive Medicine Aerospace Medicine
DX: I48.0 Paroxysmal atrial fibrillation (principal); R00.2 Palpitations; M19.90 Unspecified osteoarthritis, unspecified site; Z85.3 Personal history of malignant neoplasm of breast; I25.10 Atherosclerotic heart disease of native coronary artery without angina pectoris; I10 Essential (primary) hypertension; E03.9 Hypothyroidism, unspecified; G47.30 Sleep apnea, unspecified; E11.9 Type 2 diabetes mellitus without complications
CPT/HCPCS: 36415; 71046; 80053; 83690; 83735; 84484; 85025; 85610; 85730; 93005; 99284

== ENCOUNTER 2024-09-29 08:09 | Emergency (ER) | payer OTHER, SELFPAY ==
--- OUTSIDE RECORDS SUMMARY | 2024-09-29 08:14 | XMS_ITS ---
Author Organization [facility] Address [address] [place] [address] Care Team Providers Care Flag Signaler Name Role Phone Yung Desai MD Unavailable Dian Watson NP Unavailable [phone] Kisha Mays MD Unavailable [phone] Chaz Guidry MD Unavailable Deandre Fine MD Unavailable [phone] Adonay Pan MD Unavailable [phone] Agustin Ennis MD Primary Care Provider [phone] Active Problems Problem Noted Date Diagnosed Date Osteoarthritis of right shou lder, unspecified osteoarthritis type 05/31/2024 Diabetes mellitus 04/25/2024 Assessment & Plan (05/02/2024 10:00 AM CDT): Diabetes is diet controlled. She took Metformin in the remote past when hba1c was >7.. Counselled on Regular aerobic exercise. Diabetes will be reassessed in 6 months. Complete tear of right rotator cuff 04/04/2024 Hyponatremia 03/06/2022 Assessment & Plan (05/02/2024 10:08 AM CDT): Mild. This has been chronic and stable for over 10 years.. 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 I recommend she try to limit free water intake to 1.5 liters/day. Continue periodic monitoring. Assessment & Plan (10/28/2023 8:59 AM CDT): Persistently low Na of unclear etiology. Mild. Continue periodic monitoring. Assessment & Plan (10/14/2022 11:23 AM CDT): Persistently low Na of unclear etiology. Continue periodic monitoring. Assessment & Plan (05/18/2022 12:08 PM CDT): Persistently low Na of unclear etiology. Recheck labs. She never did the add on labs back in 02/2022, so will check those as well. Nonrheumatic aortic valve stenosis 11/17/2021 Assessment & Plan (10/28/2023 8:57 AM CDT): ECHO 06/07/23: CONCLUSIONS: Normal left ventricular systolic function. No focal wall motion abnormalities. Normal left ventricular size. Normal left ventricular wall thickness. Diastolic dysfunction is present. Ejection fraction is visually estimated at 70-75 %. Ejection fraction is measured at 80 %. Global Longitudinal Strain is -20 %. GLS is normal. There is mild enlargement of left atrium. Mild mitral annular calcification. Mild mitral valve regurgitation. Mild aortic stenosis. Mean gradient of 10.0 mmHg. Valve area of 1.45 cm2. Aortic cusps appear mildly calcified. Mild tricuspid regurgitation. Mild pulmonic regurgitation. Insomnia 03/25/2021 IBS (irritable bowel syndrome) 02/10/2021 Assessment & Plan (10/14/2022 11:24 AM CDT): Previously evaluated by GI. Maintained on Imodium, which helps. Assessment & Plan (08/17/2021 10:17 AM VAULT SERVICE MECHANIC): Followed by GI. Associated with diarrhea. Continue Imodium PRN. Assessment & Plan (02/10/2021 11:09 AM CDT): Recently DX by Dr. Pan, GI. Hypothyroidism 08/08/2020 Assessment & Plan (05/02/2024 10:00 AM CDT): Clinically euthyroid. Check labs and adjust regimen accordingly. Assessment & Plan (10/28/2023 8:58 AM CDT): Clinically euthyroid. Check labs and adjust regimen accordingly. Assessment & Plan (04/19/2023 10:56 AM CDT): Clinically euthyroid. Check labs. Adjust regimen accordingly. Assessment & Plan (10/14/2022 11:23 AM CDT): Clinically euthyroid. Check regimen. Adjust regimen accordingly. Assessment & Plan (05/18/2022 12:08 PM CDT): Levothyroxine dose was decreased in 02/2022. Recheck labs Assessment & Plan (03/01/2022 9:33 AM CDT): Clinically euthyroid. Check regimen. Adjust regimen accordingly. Assessment & Plan (08/17/2021 10:13 AM VAULT SERVICE MECHANIC): Clinically euthyroid. Continue current regimen. Assessment & Plan (05/19/2021 11:02 AM CDT): TFT stable with recent labs Clinically stable Cont prior levothyroxine dose Re-eval 3 months Assessment & Plan (02/10/2021 11:19 AM CDT): Clinically euthyroid. Repeat TSH has already been ordered. Continue current regimen and Adjust regimen accordingly. Assessment & Plan (08/13/2020 10:51 AM VAULT SERVICE MECHANIC): Clinically euthyroid. Recent TSH was elevated, prompting dose levothyroxine dose increase. Recheck TSH in 8 weeks. Chronic coronary artery disease 09/14/2019 Assessment & Plan (10/28/2023 9:10 AM CDT): Coronary artery disease is asymptomatic . Continue current treatment regimen. Continue current medications. Cardiac status will be reassessed in 1 year. Nuclear stress test 01/16/20: Conclusions: There is hyperdynamic global left ventricular systolic function. Left ventricular ejection fraction is 79 %. Myocardial perfusion imaging is normal. Anterior/anteroseptal breast sttenuation artifact is seen. Negative EKG portion of stress test. CT heart morphology 07/13/19: Coronary artery calcifications are present Assessment & Plan (10/14/2022 11:25 AM CDT): Coronary artery disease is asymptomatic. Continue current treatment regimen. Continue current medications. Cardiac status will be reassessed in 1 year. Assessment & Plan (08/17/2021 10:14 AM VAULT SERVICE MECHANIC): Coronary artery disease is asymptomatic. Continue current treatment regimen. Continue current medications. Cardiac status will be reassessed in 1 year. Assessment & Plan (05/19/2021 10:57 AM CDT): Coronary artery disease is asymptomatic.. Continue current treatment regimen. Regular aerobic exercise. Continue current medications. Cardiac status will be reassessed in 6 months. Assessment & Plan (08/13/2020 10:52 AM VAULT SERVICE MECHANIC): Coronary artery disease is asymptomatic.. Continue current treatment regimen. Regular aerobic exercise. Continue current medications. Cardiac status will be reassessed in 6 months. 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 She reports normal mammogram last year at [facility], though I have no record of this. Released from [facility]. Assessment & Plan (10/14/2022 11:10 AM CDT): EZRA. Released from [facility]. Assessment & Plan (08/17/2021 10:20 AM VAULT SERVICE MECHANIC): EZRA. Followed by Oncology. Assessment & Plan (08/13/2020 10:55 AM VAULT SERVICE MECHANIC): EZRA. Followed by Oncology. Request mammogram report from [facility]. Assessment & Plan (05/02/2018 10:30 AM CDT): EZRA. Followed by Oncology. Osteoarthritis of knee 05/11/2016 Paroxysmal atrial fibrillation 05/27/2015 Assessment & Plan (10/28/2023 8:56 AM CDT): Rate controlled. Watchman device placed 08/2019 Continue aspirin. Assessment & Plan (10/14/2022 11:16 AM CDT): Rate controlled. Watchman device placed 08/2019 Continue aspirin. Assessment & Plan (08/17/2021 10:17 AM VAULT SERVICE MECHANIC): Rate controlled. Watchman device placed 08/2019 Continue aspirin. Assessment & Plan (08/13/2020 10:48 AM VAULT SERVICE MECHANIC): Rate controlled. Watchman device placed 08/2019 Continue aspirin. Assessment & Plan (08/07/2019 10:53 AM VAULT SERVICE MECHANIC): Rate controlled. Currently holding Eliquis due to anemia. She is being considered for Watchman device Assessment & Plan (07/23/2019 2:21 PM VAULT SERVICE MECHANIC): Currently off Eliquis due to GI bleeding. Assessment & Plan (04/24/2019 2:01 PM CDT): Clinically apears to be in NSR. Continue current regimen. Followed by Cardiology. Assessment & Plan (11/01/2018 10:58 AM CDT): Rate controlled. Continue Eliquis. Assessment & Plan (09/13/2018 2:02 PM VAULT SERVICE MECHANIC): Clinically she remains in NSR pst recent DC cardioversion. Continue current regimen. Assessment & Plan (05/02/2018 10:30 AM CDT): Rate controlled. Continue current regimen and snf anticoagulation. Depression 04/01/2015 Assessment & Plan (10/28/2023 9:21 AM CDT): Depression is fair control. . Continue current treatment regimen. Psychological condition will be reassessed at the next regular appointment. Assessment & Plan (10/14/2022 11:25 AM CDT): Depression is improving with treatment. Continue current treatment regimen. Regular aerobic exercise. Psychological condition will be reassessed at the next regular appointment. Assessment & Plan (08/17/2021 10:15 AM VAULT SERVICE MECHANIC): Depression is improving with treatment. Continue current treatment regimen. Regular aerobic exercise. Psychological condition will be reassessed at the next regular appointment. Assessment & Plan (05/19/2021 11:01 AM CDT): Depression is improving with treatment. Continue current treatment regimen. Regular aerobic exercise. Psychological condition will be reassessed at the next regular appointment. Assessment & Plan (08/13/2020 10:46 AM VAULT SERVICE MECHANIC): Depression is improving with treatment. Continue current treatment regimen. Regular aerobic exercise. Psychological condition will be reassessed at the next regular appointment. Assessment & Plan (08/07/2019 10:46 AM VAULT SERVICE MECHANIC): Depression is controlled. Continue current treatment regimen. Regular aerobic exercise. Psychological condition will be reassessed at the next regular appointment. Assessment & Plan (05/02/2018 10:29 AM CDT): Psychological condition is improving with treatment. Continue current treatment regimen. Psychological condition will be reassessed at the next regular appointment. Hemochromatosis 08/26/2014 Overview (05/02/2018): Assessment & Plan (10/28/2023 9:00 AM CDT): Stable. 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 Followed by Dr. Mays. Assessment & Plan (10/14/2022 11:25 AM CDT): Stable. 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 Followed by Dr. Mays. Assessment & Plan (08/17/2021 10:14 AM VAULT SERVICE MECHANIC): Stable. 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 Followed by Dr. Mays. Assessment & Plan (08/13/2020 10:42 AM VAULT SERVICE MECHANIC): Stable. 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 Followed by Dr. Mays. Assessment & Plan (08/07/2019 10:44 AM VAULT SERVICE MECHANIC): Stable. 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 Followed by Dr. Ruano. Assessment & Plan (02/01/2019 10:35 AM CDT): Due to underlying anemia and GI bleed, Phlebotomy is being delayed to allow H/H to recover. Assessment & Plan (10/30/2018 6:32 PM CDT): -Follows with Dr. Ruano at [facility] and receives phlebotomy, last approx 1 month ago -No evidence of cirrhosis on last imaging in 2015 at [facility]. Last TTE 05/2015 with diastolic dysfunction.(had another echo not in our system at [facility] in aug ) Assessment & Plan (10/29/2018 3:23 PM CDT): -Follows with Dr. Ruano at [facility] and receives phlebotomy, last approx 1 month ago -No evidence of cirrhosis on last imaging in 2015 at [facility]. Last TTE 05/2015 with diastolic dysfunction. Assessment & Plan (10/28/2018 2:29 PM CDT): -Follows with Dr. Ruano at [facility] and receives phlebotomy, last approx 1 month ago -No evidence of cirrhosis on last imaging in 2015 at [facility]. Last TTE 05/2015 with diastolic dysfunction. Assessment & Plan (10/27/2018 11:36 AM CDT): -Follows with Dr. Ruano at [facility] and receives phlebotomy, last approx 1 month ago -No evidence of cirrhosis on last imaging in 2015 at [facility]. Last TTE 05/2015 with diastolic dysfunction. Assessment & Plan (10/26/2018 8:46 PM CDT): -Follows with Dr. Ruano at [facility] and receives phlebotomy, last approx 1 month ago -No evidence of cirrhosis on last imaging in 2015 at [facility]. Last TTE 05/2015 with diastolic dysfunction. Assessment & Plan (05/02/2018 10:37 AM CDT): Followed by Dr. Ruano. Primary hypertension 08/26/2014 Assessment & Plan (05/02/2024 10:01 AM CDT): Hypertension is borderline control. Continue current treatment regimen. Regular aerobic exercise. Continue current medications. Blood pressure will be reassessed at the next regular appointment. Assessment & Plan (01/30/2024 2:33 PM CDT): Stable, notes she was a bit anxious on the ride to the office due to her 's driving. Continue current treatment regimen. Dietary sodium restriction. Regular aerobic exercise. Ambulatory blood pressure monitoring. Blood pressure will be reassessed at the next regular appointment. Assessment & Plan (10/28/2023 9:03 AM CDT): Hypertension is stable Continue current treatment regimen. Regular aerobic exercise. Continue current medications. Blood pressure will be reassessed at the next regular appointment. Assessment & Plan (04/19/2023 10:57 AM CDT): Hypertension is stable Continue current treatment regimen. Regular aerobic exercise. Continue current medications. Blood pressure will be reassessed at the next regular appointment. Assessment & Plan (10/14/2022 11:16 AM CDT): Hypertension is mild Regular aerobic exercise. Medication changes per orders. Ambulatory blood pressure monitoring. Blood pressure will be reassessed at the next regular appointment. Increase dose carvedilol to 25 mg BID. Assessment & Plan (03/01/2022 9:30 AM CDT): Hypertension is stable Continue current treatment regimen. Regular aerobic exercise. Continue current medications. Blood pressure will be reassessed at the next regular appointment. Assessment & Plan (08/17/2021 10:06 AM VAULT SERVICE MECHANIC): Hypertension is stable Continue current treatment regimen. Regular aerobic exercise. Continue current medications. Blood pressure will be reassessed at the next regular appointment. Assessment & Plan (05/19/2021 10:59 AM CDT): Hypertension is borderline controlled Continue current treatment regimen. Dietary sodium restriction. Regular aerobic exercise. Ambulatory blood pressure monitoring. Blood pressure will be reassessed in 3 months. Assessment & Plan (02/10/2021 11:18 AM CDT): Hypertension is mild-moderate; fluctuates Medication changes per orders. Ambulatory blood pressure monitoring. Blood pressure will be reassessed at the next regular appointment. Increase dose valsartan to 160 mg QD Assessment & Plan (08/13/2020 10:43 AM VAULT SERVICE MECHANIC): Hypertension is stable Continue current treatment regimen. Regular aerobic exercise. Continue current medications. Blood pressure will be reassessed at the next regular appointment. Assessment & Plan (02/07/2020 10:48 AM CDT): Hypertension is stable Continue current treatment regimen. Regular aerobic exercise. Continue current medications. Blood pressure will be reassessed at the next regular appointment. Assessment & Plan (08/07/2019 10:50 AM VAULT SERVICE MECHANIC): Hypertension is controlled Continue current treatment regimen. Regular aerobic exercise. Continue current medications. Ambulatory blood pressure monitoring. Blood pressure will be reassessed at the next regular appointment. Jaiden is currently being held due to low BP at home and dizziness in setting of her anemia. Assessment & Plan (04/24/2019 2:00 PM CDT): Hypertension is controlled. Continue current treatment regimen. Regular aerobic exercise. Continue current medications. Blood pressure will be reassessed at the next regular appointment. Assessment & Plan (02/01/2019 10:42 AM CDT): Hypertension is controlled. Continue current treatment regimen. Regular aerobic exercise. Continue current medications. Blood pressure will be reassessed at the next regular appointment. Assessment & Plan (11/01/2018 10:59 AM CDT): Hypertension is controlled. Continue current treatment regimen. Regular aerobic exercise. Continue current medications. Blood pressure will be reassessed at the next regular appointment. Assessment & Plan (10/30/2018 6:32 PM CDT): -Cont dilt, Coreg, Losartan Assessment & Plan (10/29/2018 3:24 PM CDT): -Cont dilt, Coreg, Losartan Assessment & Plan (10/28/2018 2:29 PM CDT): -Cont dilt, Coreg, valsartan Assessment & Plan (10/27/2018 11:36 AM CDT): -Cont dilt, Coreg, valsartan Assessment & Plan (10/26/2018 8:46 PM CDT): -Cont dilt, Coreg, valsartan Assessment & Plan (09/13/2018 2:02 PM VAULT SERVICE MECHANIC): Hypertension is controlled on lower dose medication.. Continue current treatment regimen. Regular aerobic exercise. Continue current medications. Ambulatory blood pressure monitoring. Blood pressure will be reassessed at the next regular appointment. Assessment & Plan (05/02/2018 10:28 AM CDT): Hypertension is improving with treatment. Continue current treatment regimen. Regular aerobic exercise. Continue current medications. Blood pressure will be reassessed at the next regular appointment. CKD (chronic kidney disease), stage II 4 Assessment & Plan (03/01/2022 9:32 AM CDT): CKD is unchanged. Continue current treatment regimen. Regular aerobic exercise. Continue current medications. Renal condition will be reassessed today Assessment & Plan (08/17/2021 10:15 AM VAULT SERVICE MECHANIC): CKD is unchanged. Continue current treatment regimen. Regular aerobic exercise. Continue current medications. Renal condition will be reassessed in 6 months. Assessment & Plan (05/19/2021 11:01 AM CDT): CKD is improving with treatment. Continue current treatment regimen. Regular aerobic exercise. Continue current medications. Renal condition will be reassessed in 1 year. Assessment & Plan (08/13/2020 10:45 AM VAULT SERVICE MECHANIC): CKD is improving with treatment. Continue current treatment regimen. Regular aerobic exercise. Continue current medications. Renal condition will be reassessed in 1 year. Assessment & Plan (08/07/2019 10:52 AM VAULT SERVICE MECHANIC): CKD is unchanged. Continue current treatment regimen. Continue current medications. Renal condition will be reassessed in 6 months. Assessment & Plan (04/24/2019 2:01 PM CDT): Renal condition is stable. Continue current treatment regimen. Regular aerobic exercise. Continue current medications. Renal condition will be reassessed in 6 months. Assessment & Plan (10/30/2018 6:31 PM CDT): -Cr at baseline, improved Assessment & Plan (10/29/2018 3:24 PM CDT): -Cr at baseline, improved Assessment & Plan (10/28/2018 2:29 PM CDT): -Cr at baseline Assessment & Plan (10/27/2018 11:36 AM CDT): -Cr at baseline Assessment & Plan (10/26/2018 8:41 PM CDT): -Cr at baseline Assessment & Plan (05/02/2018 10:29 AM CDT): Renal condition is stable.. Regular aerobic exercise. Continue current medications. Renal condition will be reassessed in 6 months. Gastroesophageal reflux disease 08/19/2010 Assessment & Plan (10/28/2023 9:00 AM CDT): Controlled. No red flag SX. Continue current regimen. Assessment & Plan (08/17/2021 10:15 AM VAULT SERVICE MECHANIC): Fair control. No red flag SX. Continue current regimen. Assessment & Plan (05/19/2021 11:02 AM CDT): Fair control. No red flag SX. Continue current regimen. Assessment & Plan (08/13/2020 10:46 AM VAULT SERVICE MECHANIC): Fair control. No red flag SX. Continue current regimen. Pure hypercholesterolemia 08/19/2010 Assessment & Plan (04/25/2024 7:14 AM CDT): >>ASSESSMENT AND PLAN FOR HYPERLIPIDEMIA ASSOCIATED WITH TYPE 2 DIABETES MELLITUS (HCC) WRITTEN ON 04/19/2023 11:07 AM BY AGUSTIN ENNIS MD Diabetes is diet controlled.. Dietary recommendations for ADA diet. Counselled on Regular aerobic exercise. Discussed foot care. Reminded to get yearly retinal exam. Diabetes will be reassessed in 6 months. She has now had nondiabetic hba1c levels for several years. Assessment & Plan (04/25/2024 7:14 AM CDT): >>ASSESSMENT AND PLAN FOR PURE HYPERCHOLESTEROLEMIA WRITTEN ON 10/28/2023 8:56 AM BY AGUSTIN ENNIS MD I discussed ASCVD risk. I spent 15 minutes counseling on CV risk reduction. Our discussion included the followin. Healthy eating habits, including low carbohydrate diet, low starch vegetables. 2. Regular aerobic exercise plan, which can include walking, jogging, treadmill, rowing, swimming biking. I recommend targeting the equivalent of 10K steps daily most days of the week. 3. Optimize BP control. She is intolerant of statins. >>ASSESSMENT AND PLAN FOR HYPERLIPIDEMIA ASSOCIATED WITH TYPE 2 DIABETES MELLITUS (HCC) WRITTEN ON 10/28/2023 8:56 AM BY AGUSTIN ENNIS MD Diabetes is diet controlled.. Dietary recommendations for ADA diet. Counselled on Regular aerobic exercise. Discussed foot care. Reminded to get yearly retinal exam. Diabetes will be reassessed in 6 months. She has now had nondiabetic hba1c levels for several years. HBA1c peaked on 07/23/14 at 7.5. Assessment & Plan (04/25/2024 7:14 AM CDT): >>ASSESSMENT AND PLAN FOR PURE HYPERCHOLESTEROLEMIA WRITTEN ON 10/14/2022 11:16 AM BY AGUSTIN ENNIS MD I discussed ASCVD risk. I spent 15 minutes counseling on CV risk reduction. Our discussion included the followin. Healthy eating habits, including low carbohydrate diet, low starch vegetables. 2. Regular aerobic exercise plan, which can include walking, jogging, treadmill, rowing, swimming biking. I recommend targeting the equivalent of 10K steps daily most days of the week. 3. Optimize BP control. Intolerant of statins. >>ASSESSMENT AND PLAN FOR HYPERLIPIDEMIA ASSOCIATED WITH TYPE 2 DIABETES MELLITUS (HCC) WRITTEN ON 10/14/2022 11:22 AM BY AGUSTIN ENNIS MD Diabetes is diet controlled.. Dietary recommendations for ADA diet. Counselled on Regular aerobic exercise. Discussed foot care. Reminded to get yearly retinal exam. Diabetes will be reassessed in 6 months. Assessment & Plan (08/17/2021 10:16 AM VAULT SERVICE MECHANIC): I spent 15 minutes counseling her on CV risk reduction. Our discussion included the followin. Healthy eating habits, including low carbohydrate diet, low starch vegetables. We discussed intermittent fasting and paleo diets. 2. Regular aerobic exercise plan, which can include walking, jogging, treadmill, rowing, swimming biking. I recommend targeting the equivalent of 20K steps daily most days of the week. 3. Optimize BP control. Assessment & Plan (05/19/2021 11:03 AM CDT): I spent 15 minutes counseling her on CV risk reduction. Our discussion included the followin. Healthy eating habits, including low carbohydrate diet, low starch vegetables. We discussed intermittent fasting and paleo diets. 2. Regular aerobic exercise plan, which can include walking, jogging, treadmill, rowing, swimming biking. I recommend targeting the equivalent of 20K steps daily most days of the week. 3. Optimize BP control. Continue current regimen. Assessment & Plan (08/13/2020 10:47 AM VAULT SERVICE MECHANIC): I spent 15 minutes counseling her on CV risk reduction. Our discussion included the followin. Healthy eating habits, including low carbohydrate diet, low starch vegetables. We discussed intermittent fasting and paleo diets. 2. Regular aerobic exercise plan, which can include walking, jogging, treadmill, rowing, swimming biking. I recommend targeting the equivalent of 20K steps daily most days of the week. 3. Optimize BP control. Continue current regimen. Assessment & Plan (08/07/2019 10:45 AM VAULT SERVICE MECHANIC): I spent 15 minutes counseling her on CV risk reduction. Our discussion included the followin. Healthy eating habits, including low carbohydrate diet, low starch vegetables. We discussed intermittent fasting and paleo diets. 2. Regular aerobic exercise plan, which can include walking, jogging, treadmill, rowing, swimming biking. I recommend targeting the equivalent of 20K steps daily most days of the week. 3. Optimize BP control. 4. Assessment of ASCVD risk and recommendations how to mitigate this risk.discussion was consistent with the 5 A s approach. Intolerant of statins due to myalgias Assessment & Plan (05/02/2018 10:45 AM CDT): I spent 15 minutes counseling her on CV risk reduction. Our discussion included the followin. Healthy eating habits, including low carbohydrate diet, low starch vegetables. We discussed intermittent fasting and paleo diets. 2. Regular aerobic exercise plan, which can include walking, jogging, treadmill, rowing, swimming biking. I recommend targeting the equivalent of 20K steps daily most days of the week. 3. Optimize BP control. 4. Taking aspirin. 5. Assessment of ASCVD risk and recommendations how to mitigate this risk.discussion was consistent with the 5 A s approach. Intolerant of multiple statins due to myalgias. Hepatic steatosis 08/19/2010 Assessment & Plan (10/28/2023 8:59 AM CDT): Mild LFT elevation. Benign exam. Continue periodic monitoring. Assessment & Plan (10/14/2022 11:18 AM CDT): Mild LFT elevation. Benign exam. Continue periodic monitoring. Assessment & Plan (08/17/2021 10:16 AM VAULT SERVICE MECHANIC): Mild LFT elevation. Benign exam. Continue periodic monitoring. Assessment & Plan (05/19/2021 11:05 AM CDT): Normal LFT's. Benign exam. Continue periodic monitoring. Assessment & Plan (08/13/2020 10:47 AM VAULT SERVICE MECHANIC): Normal LFT's. Benign exam. Continue periodic monitoring. CASSI (obstructive sleep apnea) 08/19/2010 Overview (03/17/2021): On CPAP Assessment & Plan (10/30/2018 6:32 PM CDT): -Cont home CPAP Assessment & Plan (10/29/2018 3:24 PM CDT): -Cont home CPAP Assessment & Plan (10/28/2018 2:29 PM CDT): -Cont home CPAP Assessment & Plan (10/27/2018 11:36 AM CDT): -Cont home CPAP Assessment & Plan (10/26/2018 8:45 PM CDT): -Cont home CPAP Osteoporosis 08/19/2010 Assessment & Plan (10/14/2022 11:17 AM CDT): Details not available. No prior fractures. Reportedly intolerant of medication in the past. No recent DEXA. Assessment & Plan (08/17/2021 10:21 AM VAULT SERVICE MECHANIC): Intolerant of medication in the past, though I do not have details. Current Treatment and Therapy Plans No current plan information found. Other Current Plans THERAPEUTIC PHLEBOTOMY - ([facility] ONLY)* Plan Start Date:12/24/2022 Plan Provider:Kisha Mays MD Linked Problems Hemochromatosis, unspecified hemochromatosis type Treatment Medications No medications scheduled. Past Treatment and Therapy Plans Lifetime Dose Tracking * Chemical Lifetime Dose Automatic Entry Manual Entr y Air kerma at the reference point (Ka,r) 181 mGy 0 mGy 181 mGy Resolved Problems Problem Noted Date Diagnosed Date Resolved Date Erosive gastropathy 01/17/2020 08/10/19 Assessment & Plan (08/13/2020 10:50 AM VAULT SERVICE MECHANIC): No GI bleeding. Continue PPI. 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 Continue PPI. 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 Continue PPI. Assessment & Plan (08/07/2019 10:47 AM VAULT SERVICE MECHANIC): Currently being evaluated by GI. She is supposed to be getting capsule endoscopy. Assessment & Plan (07/23/2019 2:25 PM VAULT SERVICE MECHANIC): She is now being followed by GI with workup underway. She remains off Eliquis for now. Anemia 10/26/2018 08/17/2021 Assessment & Plan (05/19/2021 11:02 AM CDT): Resolved secondary to erosive gastritis Asymptomatic Will routinely monitor Assessment & Plan (08/13/2020 10:49 AM VAULT SERVICE MECHANIC): Resolved. Assessment & Plan (08/07/2019 10:29 AM VAULT SERVICE MECHANIC): Moderate. Stable. Recently started on oral iron by hematology Assessment & Plan (07/23/2019 2:20 PM VAULT SERVICE MECHANIC): Progressively worse. Not actively bleeding. May need PRBC transfusion. She is scheduled to see Hematology next week. Advised to go to ER if SX continue to worsen. Assessment & Plan (05/09/2019 11:41 AM CDT): Worsening on recent labs. Heme positive stool today, with no gross bleeding. EGD/colonoscopy in 10/2018 without source for GIB. Already scheduled to see GI for eval. Assessment & Plan (11/01/2018 10:57 AM CDT): Moderate-severe. Improving H/H on hospital D/C. No further GI bleeding. I suspect diverticular bleed. Recheck CBC in 2 weeks. Call if bleeding recurs. Assessment & Plan (10/30/2018 6:31 PM CDT): -Hgb 9.2 as compared to last Hgb of 10.9 and 12.1 in September 2018 at [facility]. She has not received phlebotomy as treatment for hemachromatosis for the last 1 month. She reports dark stool TYPE COPYIST. However, given SINGLETON and worsening anemia, there is concern for GIB -PPI IV BID-switch to PO now -Transfuse for Hgb <7 -GI seen, EGD normal today with no e/o bleeding / Colon with 6 polyps removed and non bleeding diverticulosis - plan per gi to resume eliquis , monitor overnight , if no bleeding likely dc tomorrow. If she develops bleeding would need capsule study. Assessment & Plan (10/29/2018 3:26 PM CDT): -Hgb 9.2 as compared to last Hgb of 10.9 and 12.1 in September 2018 at [facility]. She has not received phlebotomy as treatment for hemachromatosis for the last 1 month. She reports dark stool daily for the past 2 days which is guiaic positive although description is not classic of melena. However, given SINGLETON and worsening anemia, there is concern for GIB -PPI IV BID -Transfuse for Hgb <7 -Held Eliquis since admit. -GI seen, plan EGD / Colon on Tuesday, 48 hrs off NOAC use. - Clears today, NPO after MN and Bowel prep tonight. Assessment & Plan (10/28/2018 2:30 PM CDT): -Hgb 9.2 as compared to last Hgb of 10.9 and 12.1 in September 2018 at [facility]. She has not received phlebotomy as treatment for hemachromatosis for the last 1 month. She reports dark stool daily for the past 2 days which is guiaic positive although description is not classic of melena. However, given SINGLETON and worsening anemia, there is concern for GIB -Check ferritin, iron panel, B12, and folic acid (MCV is elevated which appears chronic) -Trend Hgb -PPI IV BID -Transfuse for Hgb <7 -Held Eliquis -GI c/s for EGD, plan EGD on Tuesday, 48 hrs off NOAC use. Assessment & Plan (10/27/2018 11:37 AM CDT): -Hgb 9.2 as compared to last Hgb of 10.9 and 12.1 in September 2018 at [facility]. She has not received phlebotomy as treatment for hemachromatosis for the last 1 month. She reports dark stool daily for the past 2 days which is guiaic positive although description is not classic of melena. However, given SINGLETON and worsening anemia, there is concern for GIB -Check ferritin, iron panel, B12, and folic acid (MCV is elevated which appears chronic) -Trend Hgb -PPI IV BID -Transfuse for Hgb <7 -Hold Eliquis -GI c/s for EGD, plan EGD on Tuesday, 48 hrs off NOAC use. Assessment & Plan (10/26/2018 8:47 PM CDT): -Hgb 9.2 as compared to last Hgb of 10.9 and 12.1 in September 2018 at [facility]. She has not received phlebotomy as treatment for hemachromatosis for the last 1 month. She reports dark stool daily for the past 2 days which is guiaic positive although description is not classic of melena. However, given SINGLETON and worsening anemia, there is concern for GIB -Check ferritin, iron panel, B12, and folic acid (MCV is elevated which appears chronic) -Trend Hgb -PPI IV BID -Transfuse for Hgb <7 -Hold Eliquis -GI c/s for EGD Fibromyalgia 04/27/2017 07/13/2019 Typical atrial flutter 05/28/201508/07 Assessment & Plan (10/30/2018 6:33 PM CDT): -Paroxysmal. S/p DCCV 08/2018, nSR now. -Cont dilt and Coreg -resume eliquis Assessment & Plan (10/29/2018 3:25 PM CDT): -Paroxysmal. S/p DCCV 08/2018, nSR now. -Cont dilt and Coreg -Held Eliquis for possible GIB and Endoscope tomorrow. Assessment & Plan (10/28/2018 2:30 PM CDT): -Paroxysmal. S/p DCCV 08/2018, nSR now. -Cont dilt and Coreg -Held Eliquis for possible GIB and Endoscope, Tuesday Assessment & Plan (10/27/2018 11:36 AM CDT): -Paroxysmal. S/p DCCV 08/2018 -Cont dilt and Coreg -Hold Eliquis for possible GIB Assessment & Plan (10/26/2018 8:38 PM CDT): -Paroxysmal. S/p DCCV 08/2018 -Cont dilt and Coreg -Hold Eliquis for possible GIB Diverticulosis 08/19/2010 11/01/2018
--- OUTSIDE RECORDS SUMMARY | 2024-09-29 08:14 | XMS_ITS | Referral Summary ---
Author Organization [facility] Address [address] [place] [address] Care Team Providers Care Textbook Associate Name Role Phone Haider Desai MD Unavailable Dian Watson NP Unavailable [phone] Kisha Mays MD Unavailable Chaz Guidry MD Unavailable Deandre Fine MD Unavailable [phone] Adonay Pan MD Unavailable [phone] Atul Acevedo MD Primary Care Provider [phone] Encounters Date Type Department Care Team Description 08/22/2024 9:00 AM CATHEAD OPERATOR Office Visit [facility] Card[facility] [address] [place] [address] Nichole Arevalo NP Paroxysmal atrial fibrillation (HCC) (Primary Dx); Chronic coronary artery disease; Nonrheumatic aortic valve stenosis; Pure hypercholesterolemia 08/01/2024 11:15 AM CATHEAD OPERATOR - 08/01/2024 11:59 PM CATHEAD OPERATOR Hospital Encounter [facility] [address] [place] [id number] Status post reverse arthroplasty of right shoulder Discharge Disposition: Discharge to home or self care 08/01/2024 11:30 AM CATHEAD OPERATOR Office Visit [facility] Orthopaedic Surgery [address] 12[address] [place] [address] [place] [address] Vishal Connor MD Status post reverse arthroplasty of right shoulder 07/27/2024 10:15 AM CATHEAD OPERATOR Ancillary Procedure [facility] [address] [place] [address] Nonrheumatic aortic valve stenosis; Hypertension associated with diabetes (HCC) from Last 3 Months Allergies Active Allergy Reactions Criticality Noted Date Comments Clarithromycin Rash Medium 08/19/2010 Cmhcxmn-Jtr-Tqd Reductase Inhibitors Rash Medium 04/27/2016 Tetracycline Rash Medium Medications vitamins A,C,O-lehq-rpbrzm (ICAPS) 14,[id number] tbmh-zr-fibv capsuleIndications: Mineral Deficiency Prevention,Vitamin Deficiency Prevention Take 1 capsule by mouth 2 (two) times a day Preservisio n Active acetaminophen (TYLENOL) 500 mg tabletIndications:P ain Take 2 tablets (1,000 mg total) by mouth every 6 (six) hours as needed for pain Active cholecalciferol (VITAMIN D-3) 25 mcg (1,000 unit) tabletIndications:V itamin D Deficiency Take 5 tablets (5,000 Units total) by mouth every morning Active aspirin 81 mg enteric coated tabletIndications:p revention of thrombosis Take 1 tablet (81 mg total) by mouth every morning Active loperamide (IMODIUM) 2 mg capsuleIndications: diarrhea Take 1 capsule (2 mg total) by mouth 4 (four) times a day as needed for diarrhea Active carvediloL (COREG) 25 mg tabletIndications:P rimary hypertension TAKE 1 TABLET BY MOUTH TWICE A DAY 180 tablet [address] (PROTONIX) 40 mg EC tabletIndications:E rosive gastropathy,Gastroe sophageal reflux disease TAKE 1 TABLET BY MOUTH EVERY DAY 90 tablet 1 4 Active buPROPion XL (WELLBUTRIN XL) 150 mg 24 hr tabletIndications:D epression, unspecified depression type TAKE 1 TABLET BY MOUTH EVERY DAY 90 tablet 1 4 Active valsartan (DIOVAN) 160 mg tabletIndications:E ssential hypertension TAKE 1 TABLET BY MOUTH EVERY DAY 90 tablet 1 4 Active levothyroxine (SYNTHROID) 50 mcg tabletIndications:A cquired hypothyroidism TAKE 1 TABLET BY MOUTH EVERY DAY 90 tablet 1 4 Active amLODIPine (NORVASC) 5 mg tabletIndications:H ypertension associated with diabetes (HCC) TAKE 1 TABLET (5 MG TOTAL) BY MOUTH DAILY. 90 tablet 4 07/10/20 25 Active Active Problems Problem Noted Date Diagnosed Date [...] helps. Assessment & Plan (08/17/2021 10:17 AM CATHEAD OPERATOR): Followed by GI. Associated with diarrhea. Continue Imodium PRN. Assessment & Plan (02/10/2021 11:09 AM CDT): Recently DX by [facility]. Hypothyroidism 08/08/2020 Assessment & Plan (05/02/2024 10:00 [...] accordingly. Assessment & Plan (08/17/2021 10:13 AM CATHEAD OPERATOR): Clinically euthyroid. Continue current regimen. Assessment & Plan (05/19/2021 11:02 AM CDT): TFT stable with recent labs Clinically stable Cont prior levothyroxine dose Re-eval 3 months Assessment & Plan (02/10/2021 11:19 AM CDT): Clinically euthyroid. Repeat TSH has already been ordered. Continue current regimen and Adjust regimen accordingly. Assessment & Plan (08/13/2020 10:51 AM CATHEAD OPERATOR): Clinically euthyroid. Recent TSH was elevated, prompting [...] year. Assessment & Plan (08/17/2021 10:14 AM CATHEAD OPERATOR): Coronary artery disease is asymptomatic. Continue current treatment regimen. Continue current medications. Cardiac status will be reassessed in 1 year. Assessment & Plan (05/19/2021 10:57 AM CDT): Coronary artery disease is asymptomatic.. Continue current treatment regimen. Regular aerobic exercise. Continue current medications. Cardiac status will be reassessed in 6 months. Assessment & Plan (08/13/2020 10:52 AM CATHEAD OPERATOR): Coronary artery disease is asymptomatic.. Continue current treatment regimen. Regular aerobic exercise. Continue current medications. Cardiac status will be reassessed in 6 months. 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 She reports normal mammogram last year at [facility], though I have no record of this. Released from [employer]. Assessment & Plan (10/14/2022 11:10 AM CDT): [facility]. [facility] Assessment & Plan (08/17/2021 10:20 AM CATHEAD OPERATOR): EZRA. Followed by Oncology. Assessment & Plan (08/13/2020 10:55 AM CATHEAD OPERATOR): EZRA. Followed by Oncology. Request mammogram report from [facility]. Assessment & Plan (05/02/2018 10:30 AM CDT): EZRA. Followed by Oncology. Osteoarthritis of knee 05/11/2016 Paroxysmal atrial fibrillation 05/27/2015 Assessment & Plan (10/28/2023 8:56 AM CDT): Rate controlled. Watchman device placed 08/2019 Continue aspirin. Assessment & Plan (10/14/2022 11:16 AM CDT): Rate controlled. Watchman device placed 08/2019 Continue aspirin. Assessment & Plan (08/17/2021 10:17 AM CATHEAD OPERATOR): Rate controlled. Watchman device placed 08/2019 Continue aspirin. Assessment & Plan (08/13/2020 10:48 AM CATHEAD OPERATOR): Rate controlled. Watchman device placed 08/2019 Continue aspirin. Assessment & Plan (08/07/2019 10:53 AM CATHEAD OPERATOR): Rate controlled. Currently holding Eliquis due to anemia. She is being considered for Watchman device Assessment & Plan (07/23/2019 2:21 PM CATHEAD OPERATOR): Currently off Eliquis due to GI bleeding. Assessment & Plan (04/24/2019 2:01 PM CDT): Clinically apears to be in NSR. Continue current regimen. Followed by Cardiology. Assessment & Plan (11/01/2018 10:58 AM CDT): Rate controlled. Continue Eliquis. Assessment & Plan (09/13/2018 2:02 PM CATHEAD OPERATOR): Clinically she remains in NSR pst recent [...] appointment. Assessment & Plan (08/17/2021 10:15 AM CATHEAD OPERATOR): Depression is improving with treatment. Continue current treatment regimen. Regular aerobic exercise. Psychological condition will be reassessed at the next regular appointment. Assessment & Plan (05/19/2021 11:01 AM CDT): Depression is improving with treatment. Continue current treatment regimen. Regular aerobic exercise. Psychological condition will be reassessed at the next regular appointment. Assessment & Plan (08/13/2020 10:46 AM CATHEAD OPERATOR): Depression is improving with treatment. Continue current treatment regimen. Regular aerobic exercise. Psychological condition will be reassessed at the next regular appointment. Assessment & Plan (08/07/2019 10:46 AM CATHEAD OPERATOR): Depression is controlled. Continue current treatment regimen. [...] Mays. Assessment & Plan (08/17/2021 10:14 AM CATHEAD OPERATOR): Stable. 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 Followed by Dr. Mays. Assessment & Plan (08/13/2020 10:42 AM CATHEAD OPERATOR): Stable. 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 Followed by Dr. Mays. Assessment & Plan (08/07/2019 10:44 AM CATHEAD OPERATOR): Stable. 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 Followed by Dr. Ruano. Assessment & Plan (02/01/2019 10:35 AM CDT): Due to underlying anemia and GI bleed, Phlebotomy is being delayed to allow H/H to recover. Assessment & Plan (10/30/2018 6:32 PM CDT): -Follows with Dr. Ruano at [facility] and receives phlebotomy, last approx 1 month ago -No evidence of cirrhosis on last imaging in 2015 at [facility]. Last TTE 05/2015 with diastolic dysfunction.(had another echo not in our system at [facility] in aug ) Assessment & Plan (10/29/2018 3:23 PM CDT): -Follows with Dr. Runao at [facility] and receives phlebotomy, last approx 1 month ago -No evidence of cirrhosis on last imaging in 2015 at [facility]. Last TTE 05/2015 with diastolic dysfunction. Assessment & Plan (10/28/2018 2:29 PM CDT): -Follows with Dr. Ruano at [facility] and receives phlebotomy, last approx 1 month ago -No evidence of cirrhosis on last imaging in 2015 at [facility]. Last TTE 05/2015 with diastolic dysfunction. Assessment & Plan (10/27/2018 11:36 AM CDT): -Follows with Dr. Ruano at [facility] and receives phlebotomy, last approx 1 month ago -No evidence of cirrhosis on last imaging in 2015 at [facility]. Last TTE 05/2015 with diastolic dysfunction. Assessment & Plan (10/26/2018 8:46 PM CDT): -Follows with Dr. Ruaon at [facility] and receives phlebotomy, last approx 1 month ago -No evidence of cirrhosis on last imaging in 2015 at [facility]. Last TTE 05/2015 with diastolic dysfunction. Assessment [...] appointment. Assessment & Plan (08/17/2021 10:06 AM CATHEAD OPERATOR): Hypertension is stable Continue current treatment regimen. [...] QD Assessment & Plan (08/13/2020 10:43 AM CATHEAD OPERATOR): Hypertension is stable Continue current treatment regimen. Regular aerobic exercise. Continue current medications. Blood pressure will be reassessed at the next regular appointment. Assessment & Plan (02/07/2020 10:48 AM CDT): Hypertension is stable Continue current treatment regimen. Regular aerobic exercise. Continue current medications. Blood pressure will be reassessed at the next regular appointment. Assessment & Plan (08/07/2019 10:50 AM CATHEAD OPERATOR): Hypertension is controlled Continue current treatment regimen. Regular aerobic exercise. Continue current medications. Ambulatory blood pressure monitoring. Blood pressure will be reassessed at the next regular appointment. Diovan is currently being held due to low [...] valsartan Assessment & Plan (09/13/2018 2:02 PM CATHEAD OPERATOR): Hypertension is controlled on lower dose medication.. [...] today Assessment & Plan (08/17/2021 10:15 AM CATHEAD OPERATOR): CKD is unchanged. Continue current treatment regimen. Regular aerobic exercise. Continue current medications. Renal condition will be reassessed in 6 months. Assessment & Plan (05/19/2021 11:01 AM CDT): CKD is improving with treatment. Continue current treatment regimen. Regular aerobic exercise. Continue current medications. Renal condition will be reassessed in 1 year. Assessment & Plan (08/13/2020 10:45 AM CATHEAD OPERATOR): CKD is improving with treatment. Continue current treatment regimen. Regular aerobic exercise. Continue current medications. Renal condition will be reassessed in 1 year. Assessment & Plan (08/07/2019 10:52 AM CATHEAD OPERATOR): CKD is unchanged. Continue current treatment regimen. [...] regimen. Assessment & Plan (08/17/2021 10:15 AM CATHEAD OPERATOR): Fair control. No red flag SX. Continue current regimen. Assessment & Plan (05/19/2021 11:02 AM CDT): Fair control. No red flag SX. Continue current regimen. Assessment & Plan (08/13/2020 10:46 AM CATHEAD OPERATOR): Fair control. No red flag SX. Continue current regimen. Pure hypercholesterolemia 08/19/2010 Assessment & Plan (04/25/2024 7:14 AM CDT): >>ASSESSMENT AND PLAN FOR HYPERLIPIDEMIA ASSOCIATED WITH TYPE 2 DIABETES MELLITUS (HCC) WRITTEN ON 04/19/2023 11:07 AM BY ATUL ACEVEDO MD Diabetes is diet controlled.. Dietary recommendations for ADA diet. Counselled on Regular aerobic exercise. Discussed foot care. Reminded to get yearly retinal exam. Diabetes will be reassessed in 6 months. She has now had nondiabetic hba1c levels for several years. Assessment & Plan (04/25/2024 7:14 AM CDT): >>ASSESSMENT AND PLAN FOR PURE HYPERCHOLESTEROLEMIA WRITTEN ON 10/28/2023 8:56 AM BY ATUL ACEVEDO MD I discussed ASCVD risk. I spent [...] (HCC) WRITTEN ON 10/28/2023 8:56 AM BY ATUL ACEVEDO MD Diabetes is diet controlled.. Dietary recommendations [...] HYPERCHOLESTEROLEMIA WRITTEN ON 10/14/2022 11:16 AM BY ATUL ACEVEDO MD I discussed ASCVD risk. I spent [...] (HCC) WRITTEN ON 10/14/2022 11:22 AM BY ATUL ACEVEDO MD Diabetes is diet controlled.. Dietary recommendations for ADA diet. Counselled on Regular aerobic exercise. Discussed foot care. Reminded to get yearly retinal exam. Diabetes will be reassessed in 6 months. Assessment & Plan (08/17/2021 10:16 AM CATHEAD OPERATOR): I spent 15 minutes counseling her on [...] regimen. Assessment & Plan (08/13/2020 10:47 AM CATHEAD OPERATOR): I spent 15 minutes counseling her on [...] regimen. Assessment & Plan (08/07/2019 10:45 AM CATHEAD OPERATOR): I spent 15 minutes counseling her on [...] monitoring. Assessment & Plan (08/17/2021 10:16 AM CATHEAD OPERATOR): Mild LFT elevation. Benign exam. Continue periodic monitoring. Assessment & Plan (05/19/2021 11:05 AM CDT): Normal LFT's. Benign exam. Continue periodic monitoring. Assessment & Plan (08/13/2020 10:47 AM CATHEAD OPERATOR): Normal LFT's. Benign exam. Continue periodic monitoring. [...] DEXA. Assessment & Plan (08/17/2021 10:21 AM CATHEAD OPERATOR): Intolerant of medication in the past, though I do not have details. Resolved Problems Problem Noted Date Diagnosed Date Resolved Date Erosive gastropathy 01/17/2020 08/10/19 Assessment & Plan (08/13/2020 10:50 AM CATHEAD OPERATOR): No GI bleeding. Continue PPI. 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 Continue PPI. 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 Continue PPI. Assessment & Plan (08/07/2019 10:47 AM CATHEAD OPERATOR): Currently being evaluated by GI. She is supposed to be getting capsule endoscopy. Assessment & Plan (07/23/2019 2:25 PM CATHEAD OPERATOR): She is now being followed by GI with workup underway. She remains off Eliquis for now. Anemia 10/26/2018 08/17/2021 Assessment & Plan (05/19/2021 11:02 AM CDT): Resolved secondary to erosive gastritis Asymptomatic Will routinely monitor Assessment & Plan (08/13/2020 10:49 AM CATHEAD OPERATOR): Resolved. Assessment & Plan (08/07/2019 10:29 AM CATHEAD OPERATOR): Moderate. Stable. Recently started on oral iron by hematology Assessment & Plan (07/23/2019 2:20 PM CATHEAD OPERATOR): Progressively worse. Not actively bleeding. May need [...] 10.9 and 12.1 in September 2018 at [facility]. She has not received phlebotomy as treatment for hemachromatosis for the last 1 month. 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 However, given SINGLETON and worsening anemia, there [...] 10.9 and 12.1 in September 2018 at [facility]. She has not received phlebotomy as treatment [...] 10.9 and 12.1 in September 2018 at [facility]. She has not received phlebotomy as treatment [...] 10.9 and 12.1 in September 2018 at [facility]. She has not received phlebotomy as treatment [...] 10.9 and 12.1 in September 2018 at [facility]. She has not received phlebotomy as treatment [...] Eliquis for possible GIB Diverticulosis 08/19/2010 11/01/2018 Immunizations Immunization Administration Dates Next Due Influenza, Quad, Adjuvantate d, Intramuscular 04/29/2021,05/09/2020 Influenza, Quadrivalent, Flor l Culture-based MDCK, Preservative Free, Antibiotic Free, Intramuscular 05/01/2019 Influenza, Quadrivalent, Hig h Dose, Preservative Free, Intrr 04/21/2023,05/11/2022 Influenza, Quadrivalent, Spl it, Preservative Free, Intramuscular 05/02/2015 Influenza, Trivalent, High D ose, Split, Preservative Free, Intramuscular 04/28/2018,05/29/2017,04/24/2014 Influenza, Trivalent, IM (MDV) 05/14/2013,2011 Influenza, Trivalent, Preser vative Free, Intramuscular 04/24/2015,05/25/2014,05/14/2013,05/25,05/25/2010 Pfizer SARS-CoV-2 Monovalent Vaccination (12+ Yrs) PURPLE 10/09/2020,09/18/2020 Pfizer Sars-Cov-2 Bivalent V accination (12+ YRS) 04/19/2022 Pneumococcal Conjugate PCV 13 10/23/2014 Pneumococcal Polysaccharide PPV23 08/13/2020,07/2005 RSV, Bivalent, Protein Subun it Rsvpref, Diluent (Abrysvo) 05/10/2023 TD Preservative Free 07/25/2005 ZOSTER Recombinant 08/07/2019 Social History Tobacco Use Types Packs/Day Years Used Date Smoking Tobacco: Former Cigarettes 1.5 33 0 07/25/1959 - 07/25/1992 Smokeless Tobacco: Never Alcohol Use Standard Drinks/Week Comments Yes 0 (1 standard drink = 0.6 oz pur e alcohol) once a week AUDIT-C Answer Date Recorded Q1: How often do you have a drink containing alcohol? 4 or more times a week 05/31/2024 Q2: How many drinks containi ng alcohol do you have on a typical day when you are drinking? 1 or 2 Q3: How often do you have si x or more drinks on one occasion? Never 05/31/2024 PHQ-2 Answer Date Recorded PHQ-2 Total Score (If total score is 3 or more points, staff should administer the PHQ-9) 1 10/28/2023 Personal Safety Answer Date Recorded Have you ever been in or are you currently in a harmful physical or emotional relationship or is someone making you feel afraid or unsafe? Denies 05/31/2024 Comments No Sex and Gender Information Value Date Recorded Sex Assigned at Not on file Legal Sex Female 1:10 AM CATHEAD OPERATOR Gender Identity Female 04/22/2020 7:16 AM CDT Sexual Orientation Not on file Last Filed Vital Signs Vital Sign Reading Time Taken Comments Blood Pressure 122/62 08/22/2024 8:51 AM CATHEAD OPERATOR Pulse 71 08/22/2024 8:51 AM CATHEAD OPERATOR Temperature 36.6 C (97.8 F) 06/03/2024 8:30 AM CATHEAD OPERATOR Respiratory Rate 18 06/03/2024 8:30 AM CATHEAD OPERATOR Oxygen Saturation 98% 08/22/2024 8:51 AM CATHEAD OPERATOR Inhaled Oxygen Concentration - - Weight 71.7 kg (158 lb) 08/22/2024 8:51 AM CATHEAD OPERATOR Height 167.6 cm (5' 6 ) 08/22/2024 8:51 AM CATHEAD OPERATOR Body Mass Index 25.5 08/22/2024 8:51 AM CATHEAD OPERATOR Plan of Treatment Not on file Medical Devices Implanted Type Area Metal Crafts Teacher Device Identifier Shelf Expiration Date Model / Serial / Lot Infratel Becky [id number] Device Closure Watchman Pebax Nitinol [place] Iridium Pet 24mm L75cm Od12 Fr [id number] Fr 3 Way Stopcock Y Adapter Self Expand Proximal Face Sterile Disposable Left Atrial Appendage - [id number] - [id number] Implanted:Qty : 1 on 09/18/2019 by Isaiah De Souza MD at [facility] Other - see comments [employer] Becky 01/30/2022 [id number] / [id number] / [id number] Description:Watchman [employer] [id number] System 6-12fr Mvp Venous Closure Vascade - [id number] - [id number] Implanted:Qty : 1 on 09/18/2019 by Isaiah De Souza MD at [facility] [employer] 07/06/2023 [id number] / [id number] / [id number] [employer] Tornier Aequalis Perform 25mm Reverse Shoulder Standard Baseplate [id number] - [id number] - [id number] Implanted:Qty : 1 on 05/31/2024 by Vishal Connor MD at [facility] Right: Shoulder [employer] 09/05/2028 [id number] / [id number] / [employer] Aequalis Perform 7mm Reverse Screw Bone Sterile Latex Free [id number] - [id number] - [id number] Implanted:Qty : 1 on 05/31/2024 by Vishal Connor MD at [facility] Right: Shoulder [employer] 03/24/2029 [id number] / [id number] / [employer] Screw Glenoid Locking Reverse Aequalis Perform 5.0x26mm Titanium Avs453 - [id number] Implanted:Qty : 1 on 05/31/2024 by Vishal Connor MD at [facility] Right: Shoulder [employer] [id number] / / [employer] Aequalis Perform Reversed 5mm 34mm Peripheral Glenoid Screw [id number] - [id number] Implanted:Qty : 1 on 05/31/2024 by Vishal Connor MD at [facility] Right: Shoulder [employer] [id number] / / [employer] Tornier Aequalis Perform 36mm Reverse Shoulder Standard Sphere Vvh354 - [id number] - [id number] Implanted:Qty : 1 on 05/31/2024 by Vishal Connor MD at [facility] Right: Shoulder [employer] 01/16/2029 [id number] / [id number] / [employer] Tray Stem Humeral Shoulder Reverse Long Size 2 Plus Perform [id number] - [id number] - [id number] Implanted:Qty : 1 on 05/31/2024 by Vishal Connor MD at [facility] Right: Shoulder [employer] 01/24/2029 [id number] / [id number] / [employer] Insert Perform 10 Deg Ret [id number] - [id number] - [id number] Implanted:Qty : 1 on 05/31/2024 by Vishal Connor MD at [facility] Right: Shoulder [employer] 11/13/2028 [id number] / [id number] / Procedures Procedure Name Priority Date/Time Associated Diagnosis Comments XR SHOULDER RIGHT 2 OR MORE VIEWS Schedule Routine, Read Routine (OP Routine) 08/01/2024 11:24 AM CATHEAD OPERATOR Status post reverse arthroplasty of right shoulder TRANSTHORACIC ECHO (TTE) COMPLETE W DOPPLER/CF W CONTRAST Routine 07/27/2024 10:46 AM CATHEAD OPERATOR Nonrheumatic aortic valve stenosis Hypertension associated with diabetes (HCC) EGFR Routine 06/02/2024 7:35 PM CATHEAD OPERATOR POCT HEMOGLOBIN A1C Routine 05/02/2024 10:03 AM CDT Type 2 diabetes mellitus with other specified complication, with long-term current use of insulin (HCC) LIPID PANEL Routine 11/01/2023 8:03 AM CDT Primary hypertension Type 2 diabetes mellitus with other specified complication, without long-term current use of insulin (HCC) Pure hypercholesterolemia ALBUMIN CREATININE RATIO, URINE Routine 11/01/2023 8:03 AM CDT Type 2 diabetes mellitus with other specified complication, without long-term current use of insulin (HCC) DEXA AXIAL SKELETON BONE DENSITY 1 OR MORE SITES Schedule Routine, Read Routine (OP Routine) 11/03/2022 9:54 AM CDT Osteoporosis, unspecified osteoporosis type, unspecified pathological fracture presence COLONOSCOPY Routine 05/27/2021 DIABETES EYE EXAM Routine 04/07/2018 MAMMOGRAPHY Routine 03/23/2018 from Last 3 Months or Most Recently Relevant to Health Maintenance Results * XR Shoulder Right 2+ View (08/01/2024 11:24 AM CATHEAD OPERATOR) Anatomical Region Laterality Modality Upper Extremities, Shoulder Right Comp uted Radiography 08/01/2024 12:4 7 PM CATHEAD OPERATOR Impressions 08/01/2024 12:47 PM CATHEAD OPERATOR Right reverse total shoulder arthroplasty in near-anatomic alignment. The radiology attending physician has personally reviewed this study, and had reviewed and/or edited this written report and agrees with it. Electronically signed by: Corey Alva D.O. Narrative 08/01/2024 12:47 PM CATHEAD OPERATOR EXAMINATION: XR SHOULDER RIGHT 2 OR MORE VIEWS HISTORY: Right shoulder arthroplasty COMPARISON: 06/13/2024 FINDINGS: 4 views of the right shoulder were obtained. Right reverse total shoulder arthroplasty in near anatomic position. No periprosthetic fracture or lucency. Mild acromioclavicular joint osteoarthritis. Procedure Note Corey Alva, - 08/01/2024 EXAMINATION: XR SHOULDER RIGHT 2 OR MORE VIEWS HISTORY: Right shoulder arthroplasty COMPARISON: 06/13/2024 FINDINGS: 4 views of the right shoulder were obtained. Right reverse total shoulder arthroplasty in near anatomic position. No periprosthetic fracture or lucency. Mild acromioclavicular joint osteoarthritis. IMPRESSION: Right reverse total shoulder arthroplasty in near-anatomic alignment. The radiology attending physician has personally reviewed this study, and had reviewed and/or edited this written report and agrees with it. Electronically signed by: Corey Alva D.O. us Vishal Connor MD IMG XR PROCEDURES Final Re sult * TRANSTHORACIC ECHO (TTE) COMPLETE W DOPPLER/CF W CONTRAST (07/27/2024 10:46 AM CATHEAD OPERATOR) Anatomical Region Laterality Modality Ultrasound 07/27/2024 9:56 AM CATHEAD OPERATOR Narrative 07/27/2024 12:12 PM CATHEAD OPERATOR [facility] [address] [facility] [address], [place] [address] [address] [facility] [address], [place] [address] P:[phone] P:[phone] Echocardiographic Report Patient Name: JEANE RIVAS S : 1940 Study Date: 07/27/2024 9:56:26 AM Gender: F Tech: Location: [facility] Provider: HAIDER DESAI Height(Cm): 170 BSA: 1.82 Weight(Kg): 69.9 Heart Rate: 71 BP: 143 / 63 Quality: Definity contrast agent used to enhance endocardial border definition Order Provider: HAIDER DESAI PROCEDURES: Echocardiographic Report: Transthoracic echocardiogram with complete 2D, M-Mode, color Doppler examination and Definity contrast. 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 MEASUREMENTS: 2D/MM Value Range Doppler Value Range EF Mod BP 75 % [ 54 - 74 ] JAY Vmax 1.49 cm2 [ 2.00 - 4.00 ] EF Teich MM 62 % [ 54 - 74 ] AV Mean PG 12 mmHg LVIDd 2D 4.93 cm [ 3.80 - 5.20 ] AV Peak Landon 2.41 m/s [ 1.00 - 1.70 ] LVIDd MM 4.93 cm [ 3.80 - 5.20 ] AV Peak PG 23 mmHg LVIDs 2D 3.59 cm [ 2.20 - 3.50 ] AV VTI 48.74 cm LVIDs MM 3.28 cm [ 2.20 - 3.50 ] LVOT Diam 2.01 cm [ 1.70 - 2.10 ] LVPWd 2D 0.89 cm [ 0.60 - 0.90 ] LVOT Peak Landon 1.13 m/s [ 0.70 - 1.10 ] LVPWd MM 0.98 cm [ 0.60 - 0.90 ] LVOT VTI 26.20 cm IVSd 2D 1.04 cm [ 0.60 - 0.90 ] MV E Peak Landon 1.24 m/s [ 0.60 - 1.30 ] IVSd MM 1.20 cm [ 0.60 - 0.90 ] MV A Peak Landon 1.07 m/s [ 1.00 - 1.20 ] LA Dimension MM 3.74 cm [ 2.70 - 3.80 ] MV Mean PG 3 mmHg [ 0 - 5 ] AoR Diam MM 3.58 cm [ 2.70 - 3.70 ] MV PHT 65 msec [ 20 - 100 ] LA Volume Index 26 cc/m2 [ 16 - 34 ] MVA PHT 3.39 cm2 [ 2.00 - 4.00 ] MV Decel Time 192 msec [ 104 - 258 ] PV Peak Landon 0.96 m/s [ 0.40 - 0.80 ] TR Peak Landon 2.06 m/s [ 1.00 - 2.80 ] TR Peak PG 17 mmHg RVSP 25.00 mmHg [ 10.00 - 36.00 ] E` 0.05 m/s E/E` 26 2D/MM Value Range Doppler Value Range - FINDINGS: Interpretation Site: Exam was interpreted at [facility]. Left Ventricle: Normal left ventricular size. Definity contrast agent used to visually enhance endocardial wall motion and contractility. Lot Number: [id number]. Normal left ventricular wall thickness. Normal global left ventricular systolic function. Impaired diastolic relaxation Grade I. Ejection fraction is measured at 75 %. Right Ventricle: Normal right ventricular size. Normal right ventricular systolic function. Left Atrium: There is mild enlargement of left atrium. Right Atrium: The right atrium is normal in size. Atrial Septum: Normal atrial septum. Mitral Valve: Moderate mitral annular calcification. Mild mitral valve regurgitation. Aortic Valve: Mild aortic stenosis. Peak Velocity of 2.41 m/s. Mean gradient of 11.0 mmHg. Valve area of 1.5 cm2. Aortic cusps appear moderately calcified. Probable trileaflet aortic valve, although not all leaflets are visualized. Trace aortic valve regurgitation. Tricuspid Valve: Estimated peak RVSP is 25 mmHg. Trivial regurgitation in the tricuspid valve. Pulmonic Valve: Pulmonic valve not well visualized. Trivial regurgitation in the pulmonic valve. Pericardium: Normal pericardium with no significant pericardial effusion. Aorta: Normal aortic root. IVC: Normal size and <50% respiratory collapse consistent with elevated right atrial pressure (5-10 mmHg). CONCLUSIONS: Normal left ventricular size. Normal left ventricular wall thickness. Normal global left ventricular systolic function. Impaired diastolic relaxation Grade I. Ejection fraction is measured at 75 %. Normal right ventricular size. Normal right ventricular systolic function. There is mild enlargement of left atrium. Moderate mitral annular calcification. Mild mitral valve regurgitation. Mild aortic stenosis. Peak Velocity of 2.41 m/s. Mean gradient of 11.0 mmHg. Valve area of 1.5 cm2. Aortic cusps appear moderately calcified. Probable trileaflet aortic valve, although not all leaflets are visualized. Trace aortic valve regurgitation. Electronically Signed By: Bhavesh Gilliam MD 07/27/2024 12:11:14 PM CATHEAD OPERATOR Procedure Note Bhavesh Gilliam MD - 07/27/2024 [facility] [address] [facility] [address], [place] [address] [address] [facility] [address], [place] [address] P:[phone] P:[phone] Echocardiographic Report Patient Name: JEANE RIVAS S : 1940 Study Date: 07/27/2024 9:56:26 AM Gender: F Tech: Location: [place] Ref Provider: HAIDER DESAI Height(Cm): 170 BSA: 1.82 Weight(Kg): 69.9 Heart Rate: 71 BP: 143 / 63 Quality: Definity contrast agent used to enhance endocardial borderdefinition Order Provider: HAIDER DESAI PROCEDURES: Echocardiographic Report: Transthoracic echocardiogram with complete 2D, M-Mode, color Dopplerexamination and Definity contrast. INDICATIONS: Aortic Stenosis, I35.0 Nonrheumatic aortic (valve) stenosis, E11.59 Type 2diabetes mellitus with other circulatory complications, and I15.2 Hypertensionsecondary to endocrine disorders. MEASUREMENTS: 2D/MM Value Range Doppler ValueRange EF Mod BP 75 % [ 54 - 74 ] JAY Vmax 1.49cm2 [ 2.00 - 4.00 ] EF Teich MM 62 % [ 54 - 74 ] AV Mean PG 12mmHg LVIDd 2D 4.93 cm [ 3.80 - 5.20 ] AV Peak Landon 2.41m/s [ 1.00 - 1.70 ] LVIDd MM 4.93 cm [ 3.80 - 5.20 ] AV Peak PG 23mmHg LVIDs 2D 3.59 cm [ 2.20 - 3.50 ] AV VTI 48.74cm LVIDs MM 3.28 cm [ 2.20 - 3.50 ] LVOT Diam 2.01 cm[ 1.70 - 2.10 ] LVPWd 2D 0.89 cm [ 0.60 - 0.90 ] LVOT Peak Landon 1.13m/s [ 0.70 - 1.10 ] LVPWd MM 0.98 cm [ 0.60 - 0.90 ] LVOT VTI 26.20cm IVSd 2D 1.04 cm [ 0.60 - 0.90 ] MV E Peak Landon 1.24m/s [ 0.60 - 1.30 ] IVSd MM 1.20 cm [ 0.60 - 0.90 ] MV A Peak Landon 1.07m/s [ 1.00 - 1.20 ] LA Dimension MM 3.74 cm [ 2.70 - 3.80 ] MV Mean PG 3 mmHg[ 0 - 5 ] AoR Diam MM 3.58 cm [ 2.70 - 3.70 ] MV PHT 65 msec[ 20 - 100 ] LA Volume Index 26 cc/m2 [ 16 - 34 ] MVA PHT 3.39cm2 [ 2.00 - 4.00 ] MV Decel Time 192 msec [ 104 - 258 ] PV Peak Landon 0.96 m/s [ 0.40 - 0.80 ] TR Peak Landon 2.06 m/s [ 1.00 - 2.80 ] TR Peak PG 17 mmHg RVSP 25.00 mmHg [ 10.00 - 36.00 ] E` 0.05 m/s E/E` 26 2D/MM Value Range Doppler ValueRange - FINDINGS: Interpretation Site: Exam was interpreted at [facility]. Left Ventricle: Normal left ventricular size. Definity contrast agent used to visuallyenhance endocardial wall motion and contractility. Lot Number: [id number]. Normal leftventricular wall thickness. Normal global left ventricular systolic function. Impaireddiastolic relaxation Grade I. Ejection fraction is measured at 75 %. Right Ventricle: Normal right ventricular size. Normal right ventricular systolicfunction. Left Atrium: There is mild enlargement of left atrium. Right Atrium: The right atrium is normal in size. Atrial Septum: Normal atrial septum. Mitral Valve: Moderate mitral annular calcification. Mild mitral valve regurgitation. Aortic Valve: Mild aortic stenosis. Peak Velocity of 2.41 m/s. Mean gradient of 11.0mmHg. Valve area of 1.5 cm2. Aortic cusps appear moderately calcified. Probable trileafletaortic valve, although not all leaflets are visualized. Trace aortic valveregurgitation. Tricuspid Valve: Estimated peak RVSP is 25 mmHg. Trivial regurgitation in the tricuspidvalve. Pulmonic Valve: Pulmonic valve not well visualized. Trivial regurgitation in the pulmonicvalve. Pericardium: Normal pericardium with no significant pericardial effusion. Aorta: Normal aortic root. IVC: Normal size and <50% respiratory collapse consistent with elevated rightatrial pressure (5-10 mmHg). CONCLUSIONS: Normal left ventricular size. Normal left ventricular wall thickness.Normal global left ventricular systolic function. Impaired diastolic relaxation Grade I.Ejection fraction is measured at 75 %. Normal right ventricular size. Normal right ventricular systolicfunction. There is mild enlargement of left atrium. Moderate mitral annular calcification. Mild mitral valve regurgitation. Mild aortic stenosis. Peak Velocity of 2.41 m/s. Mean gradient of 11.0mmHg. Valve area of 1.5 cm2. Aortic cusps appear moderately calcified. Probable trileafletaortic valve, although not all leaflets are visualized. Trace aortic valveregurgitation. Electronically Signed By: Bhavesh Gilliam MD 07/27/2024 12:11:14 PM CATHEAD OPERATOR us Haider Desai MD CV ECHO PROCEDURES Final Result * eGFR (06/02/2024 7:35 PM CATHEAD OPERATOR) eGFR 74 >=60 mL/min/1. 73 m2 Comment: Interpretive Data Reference Interval Normal >/= 90 mL/min/1.73m2 Mildly decreased* 60 - 89 mL/min/1.73m2 Mildly to moderately decreased 45 - 59 mL/min/1.73m2 Moderately to severely decreased 30 - 44 mL/min/1.73m2 Severely decreased 15 - 29 mL/min/1.73m2 Kidney Failure < 15 mL/min/1.73m2 *Relative to young adult level Estimated glomerular filtration rate is determined by the 2020 CKD-EPI equation recommended by the National Kidney Foundation (A Unifying Approach to GFR Estimation: Recommendations of the NKF-ASK Task Force on Reassessing the Inclusion of Race in Diagnosing Kidney Disease, JASN 2020). The CKD-EPI equation should not be used for patients with unstable renal function and has not been validated in children and those over 70. Current interpretive data was last reviewed 2021. Blood 06/02/2024 7:35 PM CATHEAD OPERATOR 06/02/2024 7:56 PM CATHEAD OPERATOR us Nany Ribera NP LAB BLOOD ORDERABLES Final Re sult [facility] Department [place] [address] * POCT hemoglobin A1c (05/02/2024 10:03 AM CDT) Hemoglobin A1C, POC 5.4 4.0 - 5.6 % Blood spot 05/02/2024 10:0 3 AM CDT Atul Acevedo MD POINT OF CARE TEST ORDERA BLES Final Result * (ABNORMAL) Albumin Creatinine Ratio, Urine (11/01/2023 8:03 AM CDT) Creatinine, ur 79 20 - 275 mg/dL [facility] Microalbumin, ur 4.5 See Note: mg/dL [facility] Comment: Reference Range: Reference Range Not established Microalbumin/creat ratio 57(H) <30 mg/g creat [facility] Comment: The ADA defines abnormalities in albumin excretion as follows: Albuminuria Category Result (mg/g creatinine) Normal to Mildly increased <30 Moderately increased 30-299 Severely increased > OR = 300 The ADA recommends that at least two of three specimens collected within a 3-6 month period be abnormal before considering a patient to be within a diagnostic category. Urine 11/01/2023 8:03 AM CDT 11/01/2023 8:04 AM CDT Narrative [facility] - 11/02/2023 12:53 PM CDT FASTING:YES FASTING: YES Atul Acevedo MD LAB URINE ORDERABLES Anastasiia l Result [facility] [address] [place] [address] * (ABNORMAL) Lipid panel (11/01/2023 8:03 AM CDT) Cholesterol 223(H) <200 mg/dL [facility] HDL 60 > OR = 50 mg/dL [facility] Triglycerides 235(H) <150 mg/dL [facility] Comment: If a non-fasting specimen was collected, consider repeat triglyceride testing on a fasting specimen if clinically indicated. Douglass et al. J. of Clin. Lipidol. 2015;9:129-169. LDL 125(H) mg/dL (calc) [employer] Comment: Reference range: <100 Desirable range <100 mg/dL for primary prevention; <70 mg/dL for patients with CHD or diabetic patients with > or = 2 CHD risk factors. LDL-C is now calculated using the Teresa calculation, which is a validated novel method providing better accuracy than the Friedewald equation in the estimation of LDL-C. Niraj SS et al. NAYLA. 2013;310(19): 2789-6498 (http://education.[employer]/faq/TPK142) Chol/HDL ratio 3.7 <5.0 (calc) [employer] Non-HDL, (LDL+VLDL) 163(H) <130 mg/dL (calc) [employer] Comment: For patients with diabetes plus 1 major ASCVD risk factor, treating to a non-HDL-C goal of <100 mg/dL (LDL-C of <70 mg/dL) is considered a therapeutic option. Blood 11/01/2023 8:03 AM CDT 11/01/2023 8:04 AM CDT [facility] - 11/02/2023 12:53 PM CDT FASTING:YES FASTING: YES us Atul Acevedo MD LAB BLOOD ORDERABLES Anastasiia l [facility] [address] [place] [address] * Dexa Axial Skeleton Bone Density 1 or 2 Site (11/03/2022 9:54 AM CDT) Anatomical Region Laterality Modality Body N/A Digital Radiogra phy 11/03/2022 12:4 2 PM CDT Impressions 11/03/2022 12:42 PM CDT 1. The bone mineral density of the lumbar spine is normal. 2. The bone mineral density of the left femoral neck is normal. 3. The bone mineral density of the left total hip is normal. 4. Overall, the above findings are normal by WHO criteria. 5. Calculation of fracture risk using the FRAX model is not appropriate in certain settings. It was not performed in this patient because the patient met the following condition(s): normal bone density. General comments regarding interpretation of bone density measurements: A) In children, premenopausal woman and males under age 50 not at increased risk for fractures only Z-scores, not T-scores are used to indicate risk. A Z-score above -2.0 is defined as within the expected range for age and Z-score at or less than -2.0 is below the expected range for age . A Z-score below the expected range for age in a patient with recent fractures and/or chronic corticosteroid treatment is consistent with a diagnosis of osteoporosis. B) In post menopausal women and males over 50, comparison of the measured bone mineral density with the average value in young normal subjects (the T-score ) has been found to be useful in assessing fracture risk. Fracture risk approximately doubles for each 1.0 standard deviation (SD) in individual's hip or spine bone mineral density is below the average value of young normal subjects. The World Health Organization (WHO) has defined T-scores of -1.0 to -2.5 as diagnostic of low bone mass (OSTEOPENIA), and T-scores of -2.5 or lower to be diagnostic of OSTEOPOROSIS, based on the site of lowest bone density. Note that there will be a change in reporting format and reference databases as patients move from the younger population (group A) to the older population (group B) The National Osteoporosis Foundation (www.nof.org) recommends adequate intake of calcium and vitamin D and regular weight-bearing exercise in all patients. They recommend pharmacologic treatment in postmenopausal women and men age 50 and older presenting with any of the followin) Osteoporosis, after appropriate evaluation to exclude secondary causes. 2) A hip or vertebral (clinical or radiographic) fracture, regardless of the bone density. 3) Low bone mass (Osteopenia) and one or more of: other prior fractures, secondary causes associated with high risk of fracture (such as glucocorticoid use or total immobilization), or computed high risk of fracture (10-yr probability of hip fracture >= 3% or a 10-yr probability of any major osteoporosis-related fracture >= 20% based on the [place].-adapted WHO algorithm), available at http://www.shef.ac.uk/FRAX). The radiology attending physician has personally reviewed this study, and had reviewed and/or edited this written report and agrees with it. Electronically signed by: Dewey Pascal M.D. Narrative 11/03/2022 12:42 PM CDT BONE DENSITOMETRY OF THE SPINE AND HIP DATE OF STUDY: 11/03/2022 HISTORY: 82-year-old postmenopausal woman (early menopause at age 39) with breast cancer. She is being treated with vitamin D. Evaluate bone mineral density. Additional risk factors for fracture: None. FINDINGS (SPINE): The bone mineral density of L1-L4 was assessed by dual-energy x-ray absorptiometry. The average bone mineral density within this region is 1.038 gm/sq-cm. This is 2.6 standard deviations above the mean of the average bone mineral density for age- and gender-matched subjects (the Z-score). It is 0.1 standard deviations below the mean peak bone mineral density in young adults (the T-score). FINDINGS (FEMORAL NECK): The bone mineral density of the left femoral neck was assessed by dual-energy x-ray absorptiometry. The average bone mineral density within the femoral neck region is 0.769 gm/sq-cm. This is 1.6 standard deviations above the mean of the average bone mineral density for age- and gender-matched subjects (the Z-score). It is 0.7 standard deviations below the mean peak bone mineral density in young adults (the T-score). FINDINGS (TOTAL HIP): The bone mineral density of the left hip was assessed by dual-energy x-ray absorptiometry. The average bone mineral density within the total hip region is 0.866 gm/sq-cm. This is 1.5 standard deviations above the mean of the average bone mineral density for age- and gender-matched subjects (the Z-score). It is 0.6 standard deviations below the mean peak bone mineral density in young adults (the T-score). SUMMARY OF CURRENT RESULTS: Region BMD T-score Z-score AP Spine (L1-L4) 1.038 -0.1 2.6 Femoral Neck (Left) 0.769 -0.7 1.6 Total Hip (Left) 0.866 -0.6 1.5 Procedure Note Dewey Pascal MD - 11/03/2022 BONE DENSITOMETRY OF THE SPINE AND HIP DATE OF STUDY: 11/03/2022 HISTORY: 82-year-old postmenopausal woman (early menopause at age 39) with breast cancer. She is being treated with vitamin D. Evaluate bone mineral density. Additional risk factors for fracture: None. FINDINGS (SPINE): The bone mineral density of L1-L4 was assessed by dual-energy x-ray absorptiometry. The average bone mineral density within this region is 1.038 gm/sq-cm. This is 2.6 standard deviations above the mean of the average bone mineral density for age- and gender-matched subjects (the Z-score). It is 0.1 standard deviations below the mean peak bone mineral density in young adults (the T-score). FINDINGS (FEMORAL NECK): The bone mineral density of the left femoral neck was assessed by dual-energy x-ray absorptiometry. The average bone mineral density within the femoral neck region is 0.769 gm/sq-cm. This is 1.6 standard deviations above the mean of the average bone mineral density for age- and gender-matched subjects (the Z-score). It is 0.7 standard deviations below the mean peak bone mineral density in young adults (the T-score). FINDINGS (TOTAL HIP): The bone mineral density of the left hip was assessed by dual-energy x-ray absorptiometry. The average bone mineral density within the total hip region is 0.866 gm/sq-cm. This is 1.5 standard deviations above the mean of the average bone mineral density for age- and gender-matched subjects (the Z-score). It is 0.6 standard deviations below the mean peak bone mineral density in young adults (the T-score). SUMMARY OF CURRENT RESULTS: Region BMD T-score Z-score AP Spine (L1-L4) 1.038 -0.1 2.6 Femoral Neck (Left) 0.769 -0.7 1.6 Total Hip (Left) 0.866 -0.6 1.5 IMPRESSION: 1. The bone mineral density of the lumbar spine is normal. 2. The bone mineral density of the left femoral neck is normal. 3. The bone mineral density of the left total hip is normal. 4. Overall, the above findings are normal by WHO criteria. 5. Calculation of fracture risk using the FRAX model is not appropriate in certain settings. It was not performed in this patient because the patient met the following condition(s): normal bone density. General comments regarding interpretation of bone density measurements: A) In children, premenopausal woman and males under age 50 not at increased risk for fractures only Z-scores, not T-scores are used to indicate risk. A Z-score above -2.0 is defined as within the expected range for age and Z-score at or less than -2.0 is below the expected range for age . A Z-score below the expected range for age in a patient with recent fractures and/or chronic corticosteroid treatment is consistent with a diagnosis of osteoporosis. B) In post menopausal women and males over 50, comparison of the measured bone mineral density with the average value in young normal subjects (the T-score ) has been found to be useful in assessing fracture risk. Fracture risk approximately doubles for each 1.0 standard deviation (SD) in individual's hip or spine bone mineral density is below the average value of young normal subjects. The World Health Organization (WHO) has defined T-scores of -1.0 to -2.5 as diagnostic of low bone mass (OSTEOPENIA), and T-scores of -2.5 or lower to be diagnostic of OSTEOPOROSIS, based on the site of lowest bone density. Note that there will be a change in reporting format and reference databases as patients move from the younger population (group A) to the older population (group B) The National Osteoporosis Foundation (www.nof.org) recommends adequate intake of calcium and vitamin D and regular weight-bearing exercise in all patients. They recommend pharmacologic treatment in postmenopausal women and men age 50 and older presenting with any of the followin) Osteoporosis, after appropriate evaluation to exclude secondary causes. 2) A hip or vertebral (clinical or radiographic) fracture, regardless of the bone density. 3) Low bone mass (Osteopenia) and one or more of: other prior fractures, secondary causes associated with high risk of fracture (such as glucocorticoid use or total immobilization), or computed high risk of fracture (10-yr probability of hip fracture >= 3% or a 10-yr probability of any major osteoporosis-related fracture >= 20% based on the [place].-adapted WHO algorithm), available at http://www.shef.ac.uk/FRAX). The radiology attending physician has personally reviewed this study, and had reviewed and/or edited this written report and agrees with it. Electronically signed by: Dewey Pascal M.D. Atul Acevedo MD IM DXA PROCEDURES Final Result * COLONOSCOPY (05/27/2021) [facility] Colonoscopy Abnormal Comment:multiple polyps [facility] Provider HEALTH MAINTENANCE Final Result * DIABETES EYE EXAM (04/07/2018) [facility] Diabetic Eye Exam Normal [facility] Provider HEALTH MAINTENANCE Final Result * MAMMOGRAPHY (03/23/2018) [facility] Mammogram Normal [facility] HEALTH MAINTENANCE Final Result from Last 3 Months or Most Recently Relevant to Health Maintenance Insurance [facility] CHOICE PLUS R OPTIONS PPO MEDICARE [facility] Advance Directives For more information, please contact: [phone] * Full Code (Latest Code Status on File) Date Activated Date Inactivated Comments 05/31/2024 2:41 PM 06/03/2024 1:58 PM * Full Code Date Activated Date Inactivated Comments 02/04/2020 9:53 AM 02/04/2020 4:29 PM * Full Code Date Activated Date Inactivated Comments 09/18/2019 7:24 PM 09/19/2019 2:33 PM * Full Code Date Activated Date Inactivated Comments 05/23/2019 8:12 AM 05/23/2019 2:16 PM * Full Code Date Activated Date Inactivated Comments 10/30/2018 9:33 AM 10/31/2018 6:42 PM Care Teams Textbook Associate Relationship Specialty Start Date End Date Atul Acevedo MD [address] [facility] [address] [place] [address] PCP - General Internal Medicine 06/21/23 Haider Desai MD [address] [place] [address] Consulting Physician Cardiology 09/13/18 Dian Watson, JAYME [address] [place] [address] Nurse Practitioner Cardiovascular Disease 10/26/18 Kisha Mays MD [address] [place] [address] Medical Oncologist/Hematologis t Hematology 01/30/19 Chaz Guidry MD [address] [place] [address] Referring Physician Cardiovascular Disease 08/07/19 Deandre Fine MD [address] [place] [address] Orthopedic Surgery 12/25/20 Adonay Pan MD [address] [place] [address] Referring Physician Gastroenterology 02/10/21
--- OUTSIDE RECORDS SUMMARY | 2024-09-29 08:14 | XMS_ITS | Referral Summary ---
Author Organization [facility] Address [address] [place] [address] Care Team Providers Care Machine Sizer Name Role Phone Agustin Acevedo MD Primary Care Provider [phone] Source Comments [facility],non-owned Affiliates and Associated Physician Practices is amultiple site organization consisting of ambulatory clinics and hospital sitesin [place], [place], [place] and [place]. This disclosure is being madepursuant to the Care Everywhere program and may not contain all information available regarding this patient. Last updated 18.[facility] [employer] Allergies Active Allergy Reactions Criticality Noted Date Comments Clarithromycin Rash Medium 12/01/2017 Tetracyclines Rash Medium 12/01/2017 Medications * Be aware that medications may not be up to date on this document. Alwaysverify current medications with the patient. Medication Sig Dispensed Refills Start Date End Date Status valsartan (DIOVAN) 160 MG tablet Take 80 mg by mouth once daily Active buPROPion SR 12hr (WELLBUTRIN-SR) 150 MG tablet Take 150 mg by mouth once daily Active vitamin D3 (CHOLECALCIFEROL) 1000 UNITS tablet Take 2,000 Units by mouth once daily Active furosemide (LASIX) 20 MG tablet Take 20 mg by mouth once daily Active apixaban (ELIQUIS) 5 MG tablet Take 5 mg by mouth 2 times daily Active carvedilol (COREG) 25 MG tablet Take 12.5 mg by mouth 2 times daily 04/03/2018 Active Multiple Vitamins-Minerals (PRESERVISION AREDS PO) Take by mouth once daily Active SITagliptin (JANUVIA) 50 MG tablet Take 50 mg by mouth once daily Active amiodarone (CORDARONE) 400 MG tablet Take 400 mg by mouth once daily Active Active Problems Problem Noted Date Diagnosed Date Hereditary hemochromatosis 02/09/2018 Social History Tobacco Use Types Packs/Day Years Used Date Smoking Tobacco: Former Cigarettes 1 30 0 08/03/1962 - 08/03/1992 Smokeless Tobacco: Never Tobacco Cessation:Counseling Given: No Alcohol Use Standard Drinks/Week Comments Yes 1 (1 standard drink = 0.6 oz pur e alcohol) 1-2 glasses wine/weekly Sex and Gender Information Value Date Recorded Sex Assigned at Not on file Gender Identity Not on file Sexual Orientation Not on file Last Filed Vital Signs Vital Sign Reading Time Taken Comments Blood Pressure 147/60 04/24/2019 11:27 AM CDT Pulse 71 04/24/2019 11:27 AM CDT Temperature 36.7 C (98 F) 04/24/2019 11:27 AM CDT Respiratory Rate 18 04/24/2019 11:27 AM CDT Oxygen Saturation 98% 04/24/2019 11:27 AM CDT Inhaled Oxygen Concentration - - Weight 77.2 kg (170 lb 3.2 oz) 04/24/2019 11:27 AM CDT Height 167.6 cm (5' 6 ) 04/24/2019 11:27 AM CDT Body Mass Index 27.47 04/24/2019 11:27 AM CDT Plan of Treatment Not on file Goals Goal Patient Goal Type Associated Problems Recent Progress Patient-Stated? Author Medication Management General Crystal Ruiz, RN Note: Expected end date: ongoing Interventions: Take all medications as prescribed Let your doctor know right away about any changes in your medications Make sure to request a refill of your medication at least one week prior to your last dose Care Teams Machine Sizer Relationship Specialty Start Date End Date Agustin Acevedo MD [facility] [facility] [address] Arias [address] [address] PCP - General 04/25/18
--- OUTSIDE RECORDS SUMMARY | 2024-09-29 08:14 | XMS_ITS | Encounter Summary ---
Author Organization [facility] Address [address] [facility] [place] [address] Care Team Providers Care Radar Tester Name Role Phone Agustin Acevedo MD Primary Care Provider [phone] Encounter Details Date Type Department Care Team (Late st Contact Info) Description 06/27/2019 Lab Requisition [facility] [address] [place] [id number] Brett Aldrich MD [address] [place] [address] Social History Tobacco Use Types Packs/Day Years Used Date Smoking Tobacco: Former Cigarettes 1 30 0 08/03/1962 - 08/03/1992 Smokeless Tobacco: Never Alcohol Use Standard Drinks/Week Comments Yes 1 (1 standard drink = 0.6 oz pur e alcohol) 1-2 glasses wine/weekly Sex and Gender Information Value Date Recorded Sex Assigned at Not on file Gender Identity Not on file Sexual Orientation Not on file documented as of this encounter Plan of Treatment Not on file documented as of this encounter Goals Goal Patient Goal Type Associated Problems Recent Progress Patient-Stated? Author Medication Management General No Crystal Del Toro, RN Note: Expected end date: ongoing Interventions: Take all medications as prescribed Let your doctor know right away about any changes in your medications Make sure to request a refill of your medication at least one week prior to your last dose documented as of this encounter Procedures Procedure Name Priority Date/Time Associated Diagnosis Comments DERMATOPATHOLOGY Routine 06/26/2019 12:0 0 AM [facility] documented in this encounter Results * DERMATOPATHOLOGY (06/26/2019 12:00 AM [facility]) Case Report Dermatopathology Report Case: [id number] Authorizing Provider: Brett Aldrich MD Collected: 06/26/2019 12:00 AM Ordering Location: [facility] DermPath Lab Received: 06/27/2019 02:05 PM Pathologist: Sussy Jung MD Specimen: Skin, left lower leg 3:22 PM [facility] DERMATOPATHOLOGY LABORATORY Final Diagnosis Specimen A. SKIN, left lower leg: BENIGN VERRUCOUS KERATOSIS, INFLAMED (L82.1) EPIDERMAL NECROSIS SUGGESTIVE OF EXCORIATION (L98.499) STASIS DERMATITIS (L30.8) 3:22 PM [facility] DERMATOPATHOLOGY LABORATORY Clinical History R/O SCC, recurrence, Rika vs scar. 3:22 PM [facility] DERMATOPATHOLOGY LABORATORY Gross Description Specimen A: Received is one formalin filled container labeled with the patient's name and designated left lower leg. The specimen consists of a shave biopsy measuring [id number]. Jar 0. 3:22 PM [facility] DERMATOPATHOLOGY LABORATORY Microscopic Description Specimen A. SKIN, left lower leg: Sections show hyperkeratosis, papillomatosis, hypergranulosis, and acanthosis. Inflammatory cells are present within the dermis. These histological findings can be seen in a verruca vulgaris or a seborrheic keratosis. The epidermis is focally necrotic and covered with a scale-crust. There is fibrin at the base. The dermis shows a sparse, perivascular lymphocytic infiltrate surrounding dilated, thick-walled vessels, which are increased in number. 3:22 PM [facility] DERMATOPATHOLOGY LABORATORY Disclaimer An external and internal positive and negative controls are appropriate for the histochemical, immunohistochemical and immunofluorescence stain(s) in this case (if any), except where stated explicitly. The performance characteristics of the stain(s) cited in this report were developed and its performance characteristic determined by the Dermatopathology Laboratory at [facility], directed by Dr. Laci Jung. These tests need not be, and therefore are not, approved by the [place] Food and Drug Administration. The tests are used for clinical purposes. Billing Codes Specimen Charges Stain Charges 22564 1 9 3:22 PM [facility] Embedded Images 9 3:22 PM [facility] Pathology/Cytolog y TISSUE SPECIMEN FROM SKIN / Unknown 06/26/2019 06/27/2019 2:05 PM [facility] Brett Aldrich MD LAB - PATHOLOGY/CYTO LOGY ORDERABLES DERMATOPATHOLOGY LABORATORY [facility] - Department of Dermatology [address] [facility], 5th Floor Lab [address] [phone] documented in this encounter Visit Diagnoses Not on filedocumented in this encounter Care Teams Radar Tester Relationship Specialty Start Date End Date Agustin Acevedo MD [address] [place] [address] DR Arias [address] [address] PCP - General 04/25/18 documented as of this encounter
--- OUTSIDE RECORDS SUMMARY | 2024-09-29 08:14 | XMS_ITS | Continuity of Care Document ---
Author Organization [facility] Address [address] [place] [address] [address] [place] [address] Phone Care Team Providers Care Crosstie Inspector Name Role Phone Rosalino GARCIAS, Kyrie PAGAN Unavailable Unavailable Procedures Procedure Date PT RE-EVALUATION THERAPEUTIC EXERCISES NEUROMUSCULAR RE-ED FUNC ACTIVITY THERAPEUTIC EXERCISES NEUROMUSCULAR RE-ED FUNC ACTIVITY THERAPEUTIC EXERCISES NEUROMUSCULAR RE-ED FUNC ACTIVITY THERAPEUTIC EXERCISES NEUROMUSCULAR RE-ED FUNC ACTIVITY THERAPEUTIC EXERCISES NEUROMUSCULAR RE-ED FUNC ACTIVITY THERAPEUTIC EXERCISES NEUROMUSCULAR RE-ED FUNC ACTIVITY THERAPEUTIC EXERCISES NEUROMUSCULAR RE-ED FUNC ACTIVITY THERAPEUTIC EXERCISES NEUROMUSCULAR RE-ED FUNC ACTIVITY THERAPEUTIC EXERCISES NEUROMUSCULAR RE-ED FUNC ACTIVITY PT EVALUATION THERAPEUTIC EXERCISES NEUROMUSCULAR RE-ED Advance Directives Directive Yes / No Effective Date File Name No Information Encounters Encounter Description Practice Location Reason(s) For Visit Diagnoses Date Provider Providers Copied on Encounter [facility], [address] [place], [place] [address], [place], [place], [id number], tel:[phone] [place] No Information Aug-2 8-201 5 Rosalino Kyrie. [address] [facility], [address], [place], [place], [facility], . tel:[phone] Referring Provider: [address], [place], [address]. tel:[phone] [facility], [address] [place] [address], [id number], tel:[phone] [place] No Information 5 Rosalino Kyrie. [address] [place] [address], [address], [place], [facility], [facility] [place], [place]. tel:[phone] Referring Provider: [address], [place], [address]. tel:[phone] [facility] [address] [place] [address], [place], [place], [id number], tel:[phone] [place] No Information Rosalino Kyrie. [address] [place] [address], [address], [place], [facility], [facility] [place], [place]. tel:[phone] Referring Provider: [address], [place], [address]. tel:[phone] [place] [address] [place], [place] [address]e [facility] [place], [place], [place], [id number], [place] tel:[phone] [place] No Information Rosalino Kyrie. [address] [place] [address], [address], [place], [facility], [facility] [place], [place]. tel:[phone] Referring Provider: [address], [place], [address]. tel:[phone] [facility] [address] [place] [address], [id number], tel:[phone] [place] No Information 5 Rosalino Kyrie. [address] [place] [address], [address], [place], [facility], [facility], . tel:[phone] Referring Provider: [address], [place], [address]. tel:[phone] [address], [place], [place], [id number], tel:[phone] Asim No Information 5 Rosalino Kyrie. [address] [place] [address], [address], [place], [facility], [facility], . tel:[phone] Referring Provider: [address], [place], [address]. tel:[phone] [address], [place], [place], [id number], tel:[phone] Asim No Information 5 Rosalino Kyrie. [address] [place] [address], [address], [place], [facility], [facility], . tel:[phone] Referring Provider: [address], [place], [address]. tel:[phone] [address], [place], [place], [id number], tel:[phone] Asim No Information 5 Rosalino Kyrie. [address] [place] [address], [address], [place], [facility], [facility], . tel:[phone] Referring Provider: [address], [place], [address]. tel:[phone] [address], [place], [place], [id number], tel:[phone] Asim Abnormality of gaitLack of coordination 5 Rosalino Kyrie. [address] [place] [address], [address], [place], [facility], [facility], . tel:[phone] Referring Provider: [address], [place], [address]. tel:[phone] [place] [address], [place], [place], [id number], [place] tel:[phone] Asim Dizziness Rosalino Mittal. [address] [facility], [address], [place], [address], [place]. tel: [phone] Referring Provider: Agustin Acevedo, [address] [place], [place] [address]willi Arias, [place], [address]. tel:[phone] Family History Family Member Type Diagnosis Age At Onset No Information Payers Payer name Insurance type Covered libertarian ID Authormarilina sonny(s) [id number] Social History Type Description Quantity Date Captured Comments Sex Female Smoking Status No Information Chief Complaint And Reason For Visit No Information Reason For Referral Reason For Referral No Information History Of Present Illness Encounter Date Complaint History Of Prese nt Illness No Information Functional Status Date Functional Assessmen t No Information Instructions Date Instruction Additional Infor mation No Information Assessments Type Assessment Date No Information Patient Care Teams Name Effective Dates (start - stop) Status Members No Information
--- OUTSIDE RECORDS SUMMARY | 2024-09-29 08:14 | XMS_ITS | Clinical Summary ---
Author Organization [facility] Address [address] [place] [address] Care Team Providers Care Visor Installer Name Role Phone Haider Desai MD Unavailable Dian Watson NP Unavailable [phone] Kisha Mays MD Unavailable Chaz Guidry MD Unavailable Deandre Fine MD Unavailable [phone] Adonay Pan MD Unavailable [phone] Atul Acevedo MD Primary Care Provider [phone] Allergies Active Allergy Reactions Criticality Noted Date Comments Clarithromycin Rash Medium 08/19/2010 Cqydwji-Sob-Vdw Reductase Inhibitors Rash Medium 04/27/2016 Tetracycline Rash Medium Medications vitamins A,C,R-tyzb-mbpcnp (ICAPS) 14,320-226-200 pkrb-ei-yipg capsuleIndications: Mineral Deficiency Prevention,Vitamin Deficiency Prevention Take [...] helps. Assessment & Plan (08/17/2021 10:17 AM QUALITY LEAD): Followed by GI. Associated with diarrhea. Continue [...] accordingly. Assessment & Plan (08/17/2021 10:13 AM QUALITY LEAD): Clinically euthyroid. Continue current regimen. Assessment & Plan (05/19/2021 11:02 AM CDT): TFT stable with recent labs Clinically stable Cont prior levothyroxine dose Re-eval 3 months Assessment & Plan (02/10/2021 11:19 AM CDT): Clinically euthyroid. Repeat TSH has already been ordered. Continue current regimen and Adjust regimen accordingly. Assessment & Plan (08/13/2020 10:51 AM QUALITY LEAD): Clinically euthyroid. Recent TSH was elevated, prompting [...] year. Assessment & Plan (08/17/2021 10:14 AM QUALITY LEAD): Coronary artery disease is asymptomatic. Continue current treatment regimen. Continue current medications. Cardiac status will be reassessed in 1 year. Assessment & Plan (05/19/2021 10:57 AM CDT): Coronary artery disease is asymptomatic.. Continue current treatment regimen. Regular aerobic exercise. Continue current medications. Cardiac status will be reassessed in 6 months. Assessment & Plan (08/13/2020 10:52 AM QUALITY LEAD): Coronary artery disease is asymptomatic.. Continue current treatment regimen. Regular aerobic exercise. Continue current medications. Cardiac status will be reassessed in 6 months. 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 She reports normal mammogram last year at [facility], though I have no record of this. Released from [facility]. Assessment & Plan (10/14/2022 11:10 AM CDT): EZRA. Released from [facility]. Assessment & Plan (08/17/2021 10:20 AM QUALITY LEAD): EZRA. Followed by Oncology. Assessment & Plan (08/13/2020 10:55 AM QUALITY LEAD): EZRA. Followed by Oncology. Request mammogram report from [facility]. Assessment & Plan (05/02/2018 10:30 AM CDT): EZRA. Followed by Oncology. Osteoarthritis of knee 05/11/2016 Paroxysmal atrial fibrillation 05/27/2015 Assessment & Plan (10/28/2023 8:56 AM CDT): Rate controlled. Watchman device placed 08/2019 Continue aspirin. Assessment & Plan (10/14/2022 11:16 AM CDT): Rate controlled. Watchman device placed 08/2019 Continue aspirin. Assessment & Plan (08/17/2021 10:17 AM QUALITY LEAD): Rate controlled. Watchman device placed 08/2019 Continue aspirin. Assessment & Plan (08/13/2020 10:48 AM QUALITY LEAD): Rate controlled. Watchman device placed 08/2019 Continue aspirin. Assessment & Plan (08/07/2019 10:53 AM QUALITY LEAD): Rate controlled. Currently holding Eliquis due to anemia. She is being considered for Watchman device Assessment & Plan (07/23/2019 2:21 PM QUALITY LEAD): Currently off Eliquis due to GI bleeding. Assessment & Plan (04/24/2019 2:01 PM CDT): Clinically apears to be in NSR. Continue current regimen. Followed by Cardiology. Assessment & Plan (11/01/2018 10:58 AM CDT): Rate controlled. Continue Eliquis. Assessment & Plan (09/13/2018 2:02 PM QUALITY LEAD): Clinically she remains in NSR pst recent DC cardioversion. Continue current regimen. Assessment & Plan (05/02/2018 10:30 AM CDT): Rate controlled. Continue current regimen and terminal carman anticoagulation. Depression 04/01/2015 Assessment & Plan (10/28/2023 [...] appointment. Assessment & Plan (08/17/2021 10:15 AM QUALITY LEAD): Depression is improving with treatment. Continue current treatment regimen. Regular aerobic exercise. Psychological condition will be reassessed at the next regular appointment. Assessment & Plan (05/19/2021 11:01 AM CDT): Depression is improving with treatment. Continue current treatment regimen. Regular aerobic exercise. Psychological condition will be reassessed at the next regular appointment. Assessment & Plan (08/13/2020 10:46 AM QUALITY LEAD): Depression is improving with treatment. Continue current treatment regimen. Regular aerobic exercise. Psychological condition will be reassessed at the next regular appointment. Assessment & Plan (08/07/2019 10:46 AM QUALITY LEAD): Depression is controlled. Continue current treatment regimen. [...] Mays. Assessment & Plan (08/17/2021 10:14 AM QUALITY LEAD): Stable. 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 Followed by Dr. Mays. Assessment & Plan (08/13/2020 10:42 AM QUALITY LEAD): Stable. 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 Followed by Dr. Mays. Assessment & Plan (08/07/2019 10:44 AM QUALITY LEAD): Stable. 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 Followed by Dr. Ruano. Assessment & Plan (02/01/2019 10:35 AM CDT): Due to underlying anemia and GI bleed, Phlebotomy is being delayed to allow H/H to recover. Assessment & Plan (10/30/2018 6:32 PM CDT): -Follows with Dr. Ruano at [facility] and receives phlebotomy, last approx 1 month ago -No evidence of cirrhosis on last imaging in 2015 at [facility]. Last TTE 05/2015 with diastolic dysfunction.(had another echo not in our system at [facility] in aug ) Assessment & Plan (10/29/2018 3:23 PM CDT): -Follows with Dr. Ruano at [facility] and receives phlebotomy, last approx 1 month ago -No evidence of cirrhosis on last imaging in 2015 at [facility]. Last TTE 05/2015 with diastolic dysfunction. Assessment & Plan (10/28/2018 2:29 PM CDT): -Follows with Dr. Ruano at [facility] and receives phlebotomy, last approx 1 month ago -No evidence of cirrhosis on last imaging in 2015 at [facility]. Last TTE 05/2015 with diastolic dysfunction. Assessment & Plan (10/27/2018 11:36 AM CDT): -Follows with Dr. Ruano at [facility] and receives phlebotomy, last approx 1 month ago -No evidence of cirrhosis on last imaging in 2015 at [facility]. Last TTE 05/2015 with diastolic dysfunction. Assessment & Plan (10/26/2018 8:46 PM CDT): -Follows with Dr. Ruano at [facility] and receives phlebotomy, last approx 1 month ago -No evidence of cirrhosis on last imaging in 2015 at [facility]. Last TTE 05/2015 with diastolic dysfunction. Assessment [...] appointment. Assessment & Plan (08/17/2021 10:06 AM QUALITY LEAD): Hypertension is stable Continue current treatment regimen. [...] QD Assessment & Plan (08/13/2020 10:43 AM QUALITY LEAD): Hypertension is stable Continue current treatment regimen. Regular aerobic exercise. Continue current medications. Blood pressure will be reassessed at the next regular appointment. Assessment & Plan (02/07/2020 10:48 AM CDT): Hypertension is stable Continue current treatment regimen. Regular aerobic exercise. Continue current medications. Blood pressure will be reassessed at the next regular appointment. Assessment & Plan (08/07/2019 10:50 AM QUALITY LEAD): Hypertension is controlled Continue current treatment regimen. [...] valsartan Assessment & Plan (09/13/2018 2:02 PM QUALITY LEAD): Hypertension is controlled on lower dose medication.. [...] today Assessment & Plan (08/17/2021 10:15 AM QUALITY LEAD): CKD is unchanged. Continue current treatment regimen. Regular aerobic exercise. Continue current medications. Renal condition will be reassessed in 6 months. Assessment & Plan (05/19/2021 11:01 AM CDT): CKD is improving with treatment. Continue current treatment regimen. Regular aerobic exercise. Continue current medications. Renal condition will be reassessed in 1 year. Assessment & Plan (08/13/2020 10:45 AM QUALITY LEAD): CKD is improving with treatment. Continue current treatment regimen. Regular aerobic exercise. Continue current medications. Renal condition will be reassessed in 1 year. Assessment & Plan (08/07/2019 10:52 AM QUALITY LEAD): CKD is unchanged. Continue current treatment regimen. [...] regimen. Assessment & Plan (08/17/2021 10:15 AM QUALITY LEAD): Fair control. No red flag SX. Continue current regimen. Assessment & Plan (05/19/2021 11:02 AM CDT): Fair control. No red flag SX. Continue current regimen. Assessment & Plan (08/13/2020 10:46 AM QUALITY LEAD): Fair control. No red flag SX. Continue [...] months. Assessment & Plan (08/17/2021 10:16 AM QUALITY LEAD): I spent 15 minutes counseling her on [...] regimen. Assessment & Plan (08/13/2020 10:47 AM QUALITY LEAD): I spent 15 minutes counseling her on [...] regimen. Assessment & Plan (08/07/2019 10:45 AM QUALITY LEAD): I spent 15 minutes counseling her on [...] monitoring. Assessment & Plan (08/17/2021 10:16 AM QUALITY LEAD): Mild LFT elevation. Benign exam. Continue periodic monitoring. Assessment & Plan (05/19/2021 11:05 AM CDT): Normal LFT's. Benign exam. Continue periodic monitoring. Assessment & Plan (08/13/2020 10:47 AM QUALITY LEAD): Normal LFT's. Benign exam. Continue periodic monitoring. [...] DEXA. Assessment & Plan (08/17/2021 10:21 AM QUALITY LEAD): Intolerant of medication in the past, though I do not have details. Resolved Problems Problem Noted Date Diagnosed Date Resolved Date Erosive gastropathy 01/17/2020 08/10/19 Assessment & Plan (08/13/2020 10:50 AM QUALITY LEAD): No GI bleeding. Continue PPI. 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 Continue PPI. 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 Continue PPI. Assessment & Plan (08/07/2019 10:47 AM QUALITY LEAD): Currently being evaluated by GI. She is supposed to be getting capsule endoscopy. Assessment & Plan (07/23/2019 2:25 PM QUALITY LEAD): She is now being followed by GI with workup underway. She remains off Eliquis for now. Anemia 10/26/2018 08/17/2021 Assessment & Plan (05/19/2021 11:02 AM CDT): Resolved secondary to erosive gastritis Asymptomatic Will routinely monitor Assessment & Plan (08/13/2020 10:49 AM QUALITY LEAD): Resolved. Assessment & Plan (08/07/2019 10:29 AM QUALITY LEAD): Moderate. Stable. Recently started on oral iron by hematology Assessment & Plan (07/23/2019 2:20 PM QUALITY LEAD): Progressively worse. Not actively bleeding. May need [...] 10.9 and 12.1 in September 2018 at [facility]. She has not received phlebotomy as treatment for hemachromatosis for the last 1 month. 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 However, given SINGLETON and worsening anemia, there [...] 10.9 and 12.1 in September 2018 at [facility]. She has not received phlebotomy [...] 10.9 and 12.1 in September 2018 at [facility]. She has not received phlebotomy [...] 10.9 and 12.1 in September 2018 at [facility]. She has not received phlebotomy [...] 10.9 and 12.1 in September 2018 at [facility]. She has not received phlebotomy [...] Eliquis for possible GIB Diverticulosis 08/19/2010 11/01/2018 Encounters Date Type Department Care Team Description 08/22/2024 9:00 AM QUALITY LEAD Office Visit [facility] [address] [place] [address] Nichole Arevalo NP Paroxysmal atrial fibrillation (HCC) (Primary Dx); Chronic coronary artery disease; Nonrheumatic aortic valve stenosis; Pure hypercholesterolemia 08/01/2024 11:30 AM QUALITY LEAD Office Visit [facility] Orthopaedic Surgery [address] Advanced [facility] [address] [place] [address] [place] [address] Vishal Connor MD Status post reverse arthroplasty of right shoulder 08/01/2024 11:15 AM QUALITY LEAD - 08/01/2024 11:59 PM QUALITY LEAD Hospital Encounter [facility] [address] [place] [address] Status post reverse arthroplasty of right shoulder Discharge Disposition: Discharge to home or self care 07/27/2024 10:15 AM QUALITY LEAD Ancillary Procedure [facility] [address] [place] [address] Nonrheumatic aortic valve stenosis; Hypertension associated with diabetes (HCC) from Last 3 Months Immunizations Immunization Administration Dates Next Due Influenza, [...] TD Preservative Free 07/25/2005 ZOSTER Recombinant 08/07/2019 Surgical History Surgery Date Site/Laterality Comments LAMINECTOMY AND MICRODISCECTOMY CERVICAL SPINE cervical microdiscectomy BREAST LUMPECTOMY 07/25/1997 - 07/24/1998 Lumpectomy, breast cancer: lumpectomy, LN dissection, XRT Lymph node resection LYMPH NODE DISSECTION 07/25/1997 - 07/24/1998 Right right axillary lymph node dissection SMALL BOWEL ENTEROSCOPY 02/04/2020 Cauterization of duodenal AVM CATARACT EXTRACTION . SPINE SURGERY Medical History Medical History Date Comments Sleep apnea Anemia Arrhythmia History of radiation therapy las t in 1997 for breast cancer, per pt Malignant neoplasm of female breast (HCC) Breast cancer - s/p lumpecto my and XRT (Added by TW Conv) Angiodysplasia of duodenum Arthritis Cataract Hypertension GI (gastrointestinal bleed) Erosive gastropathy 01/17/2020 Diabetes mellitus (HCC) Heart disease Thyroid disease Family History Medical History Relation Name Comments Autoimmune disease Father Andrade Clotting disorder Father Andrade Coronary artery disease Father Andrade Heart attack Father Andrade Heart disease Father Andrade Hypertension Father Andrade Lung cancer Mother Rheumatic fever Mother Clotting disorder Sister Dennise Diabetes Sister Dennise Early Sister Dennise Heart disease Sister Dennise Hyperlipidemia Sister Dennise Hypertension Sister Dennise Kidney disease Sister Dennise Lupus Sister Dennise Obesity Sister Dennise Stroke Sister Dennise Coronary artery disease Son Anesthesia problems Neg Hx Relation Name Status Comments Father Andrade (Age 83) Mother (Age 73) Sister Dennise Son Alive Social History Tobacco Use Types Packs/Day Years [...] on file Legal Sex Female 1:10 AM QUALITY LEAD Gender Identity Female 04/22/2020 7:16 AM CDT Sexual Orientation Not on file Obstetrics History Last Filed Vital Signs Vital Sign Reading Time Taken Comments Blood Pressure 122/62 08/22/2024 8:51 AM QUALITY LEAD Pulse 71 08/22/2024 8:51 AM QUALITY LEAD Temperature 36.6 C (97.8 F) 06/03/2024 8:30 AM QUALITY LEAD Respiratory Rate 18 06/03/2024 8:30 AM QUALITY LEAD Oxygen Saturation 98% 08/22/2024 8:51 AM QUALITY LEAD Inhaled Oxygen Concentration - - Weight 71.7 kg (158 lb) 08/22/2024 8:51 AM QUALITY LEAD Height 167.6 cm (5' 6 ) 08/22/2024 8:51 AM QUALITY LEAD Body Mass Index 25.5 08/22/2024 8:51 AM QUALITY LEAD Plan of Treatment Health Maintenance Due Date Last Done Comments Hepatitis B Screening 1958 DTaP/Tdap/Td Vaccine (1 - Tdap) 07/26/2005 6 Breast Cancer Screening-Mammogram 03/23/2019 018 Dilated Eye Exam 04/07/2019 04/07/2018 Zoster Vaccine (2 of 2) 10/02/2019 08/07/2019 Covid-19 Vaccine (7 - 2023-2 5 season) 2024 04/21/2023, 04/19/2022, 12/03/2021, Additional history exists Influenza Vaccine (#1) 2024 , 05/11/2022, 04/29/2021, Additional history exists Colon Cancer Screening-Colonoscopy 05/27/2024 05/27/2021, 10/30/2018 Depression Screening 10/27/2024 10/28/2023, 10/14/2022, 08/17/2021, Additional history exists Foot Exam 10/27/2024 10/28/2023, 09/23, 08/17/2021, Additional history exists Well Visit 65+ 10/27/2024 10/28/2023, 09/23, 08/17/2021, Additional history exists Albumin Creatinine Ratio, Urine 10/31/2024 11/01/2023, 10/20/2022, 08/07/2020, Additional history exists Hemoglobin A1C 10/31/2024 05/02/2024, 040 11/2023, 04/19/2023, Additional history exists Lipid Panel 10/31/2024 11/01/2023, 09/23, 08/10/2021, Additional history exists Osteoporosis Screening-Bone Density Scan 11/03/2024 11/03/2022 eGFR 06/02/2025 06/02/2024, 1102/2024, 05/31/2024, Additional history exists Fall Risk Assessment 06/03/2025 06/03/2024, 10/28/2023, 10/14/2022, Additional history exists Pneumococcal vaccine 65+ Completed 021, 10/23/2014, 04/24/2006 Colon Cancer Screening-CT Colonography Discontinued 05/27/2021, 10/30/2018 Colon Cancer Screening-DNA Stool Discontinued 05/27/20 21, 10/30/2018 Colon Cancer Screening-FIT Discontinued 05/27/2021, Colon Cancer Screening-Sigmoidoscopy Discontinued 05/27/2021, 10/30/2018 Medical Devices Implanted Type Area Gun Fertilizer Device Identifier Shelf Expiration Date Model / Serial / Lot Baton [id number] Device Closure Watchman Pebax Nitinol Caddo Iridium Pet 24mm L75cm Od12 Fr [id number] Fr 3 Way Stopcock Y Adapter Self Expand Proximal Face Sterile Disposable Left Atrial Appendage - [id number] - [id number] Implanted:Qty : 1 on 09/18/2019 by Isaiah De Souza MD at [facility] Other - see comments [employer] Becky 01/30/2022 [id number] / [id number] / [id number] Description:WatchSkyhood [employer] [id number] System 6-12fr Mvp Venous Closure Vascade - [id number] - [id number] Implanted:Qty : 1 on 09/18/2019 by Isaiah De Souza MD at [facility] [employer] 07/06/2023 [id number] / [id number] / [id number] [employer] Tornier Aequalis Perform 25mm Reverse Shoulder Standard Baseplate [id number] - [id number] - [id number] Implanted:Qty : 1 on 05/31/2024 by Vishal Connor MD at [facility] Right: Shoulder [employer] 09/05/2028 [id number] / [id number] / [employer] Aequalis Perform 7mm Reverse Screw Bone Sterile Latex Free [id number] - [id number] - [id number] Implanted:Qty : 1 on 05/31/2024 by Vishal Connor MD at [facility] Right: Shoulder [employer] 03/24/2029 [id number] / [id number] / Team Kralj [employer] Screw Glenoid Locking Reverse Aequalis Perform 5.0x26mm Titanium [id number] - [id number] Implanted:Qty : 1 on 05/31/2024 by Vishal Connor MD at [facility] Right: Shoulder [employer] [id number] / / [employer] Aequalis Perform Reversed 5mm 34mm Peripheral Glenoid Screw [id number] - [id number] Implanted:Qty : 1 on 05/31/2024 by Vishal Connor MD at [facility] Right: Shoulder [employer] [id number] / / [employer] Tornier Aequalis Perform 36mm Reverse Shoulder Standard Sphere [id number] - [id number] - [id number] Implanted:Qty : 1 on 05/31/2024 by Vishal Connor MD at [facility] Right: Shoulder [employer] 01/16/2029 [id number] / [id number] / [employer] Tray Stem Humeral Shoulder Reverse Long Size 2 Plus Perform [id number] [id number] - [id number] - [id number] Implanted:Qty : 1 on 05/31/2024 by Vishal Connor MD at [facility] Right: Shoulder [employer] 01/24/2029 [id number] / [id number] / [employer] Insert Perform 10 Deg Ret [id number] - [id number] - [id number] Implanted:Qty : 1 on 05/31/2024 by Vishal Connor MD at [facility] Right: Shoulder [employer] 11/13/2028 [id number] / [id number] / Procedures Procedure Name Priority Date/Time Associated Diagnosis Comments XR SHOULDER RIGHT 2 OR MORE VIEWS Schedule Routine, Read Routine (OP Routine) 08/01/2024 11:24 AM QUALITY LEAD Status post reverse arthroplasty of right shoulder TRANSTHORACIC ECHO (TTE) COMPLETE W DOPPLER/CF W CONTRAST Routine 07/27/2024 10:46 AM QUALITY LEAD Nonrheumatic aortic valve stenosis Hypertension associated with diabetes (HCC) EGFR Routine 06/02/2024 7:35 PM QUALITY LEAD POCT HEMOGLOBIN A1C Routine 05/02/2024 10:03 AM [...] unspecified osteoporosis type, unspecified pathological fracture presence HM COLONOSCOPY Routine 05/27/2021 DIABETES EYE EXAM Routine 04/07/2018 MAMMOGRAPHY Routine 03/23/2018 from Last 3 Months or Most Recently Relevant to Health Maintenance Results * XR Shoulder Right 2+ View (08/01/2024 11:24 AM QUALITY LEAD) Anatomical Region Laterality Modality Upper Extremities, Shoulder Right Comp uted Radiography 08/01/2024 12:4 7 PM QUALITY LEAD Impressions 08/01/2024 12:47 PM QUALITY LEAD Right reverse total shoulder arthroplasty in near-anatomic alignment. The radiology attending physician has personally reviewed this study, and had reviewed and/or edited this written report and agrees with it. Electronically signed by: Corey Alva D.O. Narrative 08/01/2024 12:47 PM QUALITY LEAD EXAMINATION: XR SHOULDER RIGHT 2 OR MORE VIEWS HISTORY: Right shoulder arthroplasty COMPARISON: 06/13/2024 FINDINGS: 4 views of the right shoulder were obtained. Right reverse total shoulder arthroplasty in near anatomic position. No periprosthetic fracture or lucency. Mild acromioclavicular joint osteoarthritis. Procedure Note Corey Alva, DO - 08/01/2024 EXAMINATION: XR SHOULDER RIGHT 2 [...] W DOPPLER/CF W CONTRAST (07/27/2024 10:46 AM QUALITY LEAD) Anatomical Region Laterality Modality Ultrasound 07/27/2024 9:56 AM QUALITY LEAD Narrative 07/27/2024 12:12 PM QUALITY LEAD [facility] [address], [place] [address] [address], [place] [address] P:[phone] P:[phone] Echocardiographic Report Patient Name: JEANE RIVAS S : 1940 Study Date: 07/27/2024 9:56:26 AM Gender: F Tech: Location: [facility] Provider: HAIDER DESAI Height(Cm): 170 BSA: 1.82 [...] FINDINGS: Interpretation Site: Exam was interpreted at [facility]. Left Ventricle: Normal left ventricular size. Definity [...] By: Bhavesh Gilliam MD 07/27/2024 12:11:14 PM QUALITY LEAD Procedure Note Bhavesh Gilliam MD - 07/27/2024 [facility] [address] [facility] [address] [address] [address] [address] [address] [place], [place] [address] P:[phone] P:[phone] Echocardiographic Report Patient Name: JEANE RIVAS S : 1940 Study Date: 07/27/2024 9:56:26 AM Gender: F Tech: Location: [facility] Provider: HAIDER DESAI Height(Cm): 170 BSA: 1.82 [...] FINDINGS: Interpretation Site: Exam was interpreted at [facility]. Left Ventricle: Normal left ventricular size. Definity [...] By: Bhavesh Gilliam MD 07/27/2024 12:11:14 PM QUALITY LEAD us Haider Desai MD CV ECHO PROCEDURES Final Result * eGFR (06/02/2024 7:35 PM QUALITY LEAD) eGFR 74 >=60 mL/min/1. 73 m2 Comment: [...] last reviewed 2021. Blood 06/02/2024 7:35 PM QUALITY LEAD 06/02/2024 7:56 PM QUALITY LEAD us Nany Ribera NP LAB BLOOD ORDERABLES Final Re sult [facility] Department [place] [address] * POCT hemoglobin A1c (05/02/2024 10:03 AM [...] URINE ORDERABLES Anastasiia l Result [facility] [address] [place] [address] * (ABNORMAL) Lipid panel (11/01/2023 8:03 AM CDT) Cholesterol 223(H) <200 mg/dL [facility] Abiodun HDL 60 > OR = 50 mg/dL [facility] Triglycerides 235(H) <150 mg/dL [facility] Comment: If a non-fasting specimen was collected, consider repeat triglyceride testing on a fasting specimen if clinically indicated. Rafat et al. J. of Clin. Lipidol. 2015;9:129-169. LDL 125(H) mg/dL (calc) [facility] Comment: Reference range: <100 Desirable range <100 mg/dL for primary prevention; <70 mg/dL for patients with CHD or diabetic patients with > or = 2 CHD risk factors. LDL-C is now calculated using the Teresa calculation, which is a validated novel method providing better accuracy than the Friedewald equation in the estimation of LDL-C. Niraj WU et al. NAYLA. 2013;310(19): 9386-6821 (http://education.Written.Shared Spectrum/faq/DZU251) Chol/HDL ratio 3.7 <5.0 (calc) [facility] Non-HDL, (LDL+VLDL) 163(H) <130 mg/dL (calc) [facility] Comment: For patients with diabetes plus 1 major ASCVD risk factor, treating to a non-HDL-C goal of <100 mg/dL (LDL-C of <70 mg/dL) is considered a therapeutic option. Blood 11/01/2023 8:03 AM CDT 11/01/2023 8:04 AM CDT Narrative [facility] - 11/02/2023 12:53 PM CDT FASTING:YES FASTING: YES us Atul Acevedo MD LAB BLOOD ORDERABLES Anastasiia l Result [facility] [address] [place] [address] * Dexa Axial Skeleton Bone Density 1 [...] by: Dewey Pascal M.D. Atul Acevedo MD IMG DXA PROCEDURES Final Result * COLONOSCOPY (05/27/2021) [facility] Colonoscopy Abnormal Comment:multiple polyps Result [facility] [place] [facility] Final Result * DIABETES EYE EXAM (04/07/2018) [facility] Diabetic Eye Exam Normal Result [facility] [place] [facility] Final Result * MAMMOGRAPHY (03/23/2018) [facility] Mammogram Normal Result [facility] [place] [facility] Final Result from Last 3 Months or Most Recently Relevant to Health Maintenance Insurance [facility] CHOICE PLUS [facility] PPO MEDICARE [facility] Advance Directives For more information, please contact: [phone] * Full Code (Latest Code Status on [...] 9:33 AM 10/31/2018 6:42 PM Care Teams Visor Installer Relationship Specialty Start Date End Date Atul Acevedo MD [facility] [facility] [address] Arias [facility] [address] [place] [address] PCP - General Internal Medicine 06/21/23 Haider Desai MD [address] [facility] [address] [place] [address] Consulting Physician Cardiology 09/13/18 Dian Watson NP [address] [facility] [address] [place] [address] Nurse Practitioner Cardiovascular Disease 10/26/18 Kisha Mays MD [address] [place] [address] Medical Oncologist/Hematologis t Hematology 01/30/19 Chaz Guidry MD [address] [place] [address] Referring Physician Cardiovascular Disease 08/07/19 Deandre Fine MD [address] [place] [address] Orthopedic Surgery 12/25/20 Adonay Pan MD [address] [facility] [address] [place] [address] Referring Physician Gastroenterology 02/10/21
--- OUTSIDE RECORDS SUMMARY | 2024-09-29 08:14 | XMS_ITS | Continuity of Care Document ---
Author Organization [facility] Address [address] [place] [address] [place] [address] Phone Care Team Providers Care Coal Passer Name Role Phone [facility] Unavailable Unavail able Oralia Rodriguez Unavailable Unavailable Procedures Procedure Date Vision Svcs Frames Purchases SV Polycarb Sphcyl [place] +/-4d, 2.12-4 A Medical Tax Eye Exam & Treatment Refraction Eye Exam & Treatment [facility] Frames Purchases Progressive Lens, Plastic Tint Photochromatic, Plastic Tax - Medical Eye Exam & Treatment Advance Directives Directive Yes / No Effective Date File Name No Information Encounters Encounter Description Practice Location Reason(s) For Visit Diagnoses Date Provider Providers Copied on Encounter [facility], [address] [place] [address] [address], [place], [place], [id number], [place] tel:[phone] [facility] No Information 0-201 0 [facility] . [address] [facility], [facility] [address], [place], [place], [address], [place]. tel:[phone] Referring Provider: Dominic Swenson, [address], [place], [address]. tel:[phone] link Provider: Oralia Rodriguez, [address] [place], [address]. tel:[phone] [facility] Eye [facility], [address] [place] [address] [address], [place], [place], [id number], tel:[phone] [facility] No Information Aries-0 2-201 0 Claire Alfaro. [address] [facility] [facility] [address] [address] , [address], [place], [address], . tel:[phone] [facility] Eye [facility], [address], [place], [place], [address], tel:[phone] [facility] No Information May-2 0-200 9 Claire Alfaro. [address] [facility] , [address], [place], [address], [place]. tel:[phone] [facility], [address], [place], [place], [address], tel:[phone] [facility] No Information May-3 0-200 8 [facility] . [address] [facility], [address], [place], [place], [address], . tel:[phone] Referring Provider: Dominic Swenson, [address] [place], [place] [address]ate [place] [address], [place], [address]. tel:[phone] link Provider: Carolin Tucker, [address] [place], [address]. tel:[phone] [facility], [address], [place], [place], [address], tel:[phone] [facility] No Information May-2 8-200 8 Claire Alfaro. [facility] , [address], [place], [address], [place]. tel:[phone] Family History Family Member Type Diagnosis Age At Onset No Information Payers Payer name Insurance type Covered republican ID Authoriza tion(s) No Information Social History Type Description Quantity Date Captured [...]
--- OUTSIDE RECORDS SUMMARY | 2024-09-29 08:14 | XMS_ITS | Encounter Summary ---
Author Organization [facility] Address [address] [place] [address] Phone Care Team Providers Care Custom Marine Canvas Fabricator Name Role Phone Agustin Acevedo MD Primary Care Provider [phone] Edison Ryan MD Unavailable [phone] Radha Cardenas MD Unavailable Marshal Ruano MD Unavailable [phone] Yung Desai MD Unavailable Dian Watson NP Unavailable Kisha Mays MD Unavailable Latisha Muniz MD Unavailable Sujata Lilly MD Unavailable + Chaz Guidry MD Unavailable Deanrde Fine MD Unavailable [phone] Adonay Pan MD Unavailable [phone] Agustin Acevedo MD Primary Care Provider Encounter Details Date Type Department Care Team (Late st Contact Info) Description 10/17/2018 Telephone [facility] General Neurology [address] [place] [address] [address] [place] [address] Patrick Cancino, RPSGT Social History Tobacco Use Types Packs/Day Years Used Date Smoking Tobacco: Former Cigarettes Q uit: 1992 Smokeless Tobacco: Never Alcohol Use Standard Drinks/Week Comments Yes 0 (1 standard drink = 0.6 oz pur e alcohol) Comments Unknown Sex and Gender Information Value Date Recorded Sex Assigned at Not on file Legal Sex Female 1:10 AM TUB CHUCKER Gender Identity Female 04/22/2020 7:16 AM CDT Sexual Orientation Not on file documented as of this encounter Plan of Treatment Not on file documented as of this encounter Visit Diagnoses Not on filedocumented in this encounter Additional Health Concerns Infection Onset Date Last Indicated Resolved Time COVID19 07/23/2021 07/23/2021 08/06/2021 3:07 AM TUB CHUCKER COVID: Recovered Comment:Added based on recent COVID infection. 08/06/2021 08/31/2021 12/04/2021 3:05 AM C DT documented as of this encounter Care Teams Custom Marine Canvas Fabricator Relationship Specialty Start Date End Date Agustin Acevedo MD [address] [place], [place] [address]FLAQUITA Arias [address] [address] PCP - General 05/08/15 06/20/23 Agustin Acevedo MD [address] [place], [place] [address]FLAQUITA Arias [address] [address] PCP - General Internal Medicine 06/21/23 Edison Ryan MD [address] [place], [place] [address]FL[place]QUITA Arias [address] [address] Medical Oncologist/Hematologis t Hematology and Oncology 05/01/18 10/13/22 Radha Cardenas MD [address] [facility] [address] [place] [address] Referring Physician Cardiology 05/01/18 10/31/18 Marshal Ruano MD [address] [place] [address] Referring Physician Gastroenterology 05/02/18 10/13/22 Yung Desai MD [address] [place] [address] Consulting Physician Cardiology 09/13/18 Dian Watson, JAYME [address] [place] [address] Nurse Practitioner Cardiovascular Disease 10/26/18 Kisha Mays MD [address] [place] [address] Medical Oncologist/Hematologis t Hematology 01/30/19 Latisha Muniz MD [address] [place] [address] Referring Physician Neurology 01/30/19 10/13/22 Sujata Lilly MD [address] [place] [address] Consulting Physician Gastroenterology 07/23/19 02/09/21 Chaz Guidry MD [address] [place] [address] Referring Physician Cardiovascular Disease 08/07/19 Deandre Fine MD [address] [place] [address] Orthopedic Surgery 12/25/20 Adonay Pan MD [address] [place] [address] Referring Physician Gastroenterology 02/10/21 documented as of this encounter
--- OUTSIDE RECORDS SUMMARY | 2024-09-29 08:14 | XMS_ITS | Patient Health Summary ---
Author Organization [facility] Address [address] [place] [address] Care Team Providers Care Boots And Shoes Supervisor Name Role Phone Agustin Acevedo MD Primary Care Provider [phone] [facility],non-owned Affiliates and Associated Physician Practices is amultiple site organization consisting of ambulatory clinics and hospital sitesin [place], [place], [place] and [place]. This disclosure is being madepursuant to the Care Everywhere program and may not contain all information available regarding this patient. Last updated 18.[facility] Allergies * Clarithromycin(Rash) -Medium Criticality * Tetracyclines(Rash) -Medium Criticality Medications * Be aware that medications may not be up to date on this document. Alwaysverify current medications with the patient. * valsartan (DIOVAN) 160 MG tablet Take 80 mg by mouth once daily * buPROPion SR 12hr (WELLBUTRIN-SR) 150 MG tablet Take 150 mg by mouth once daily * vitamin D3 (CHOLECALCIFEROL) 1000 UNITS tablet Take 2,000 Units by mouth once daily * furosemide (LASIX) 20 MG tablet Take 20 mg by mouth once daily * apixaban (ELIQUIS) 5 MG tablet Take 5 mg by mouth 2 times daily * carvedilol (COREG) 25 MG tablet(Started 04/03/2018) Take 12.5 mg by mouth 2 times daily * Multiple Vitamins-Minerals (PRESERVISION AREDS PO) Take by mouth once daily * SITagliptin (JANUVIA) 50 MG tablet Take 50 mg by mouth once daily * amiodarone (CORDARONE) 400 MG tablet Take 400 mg by mouth once daily Active Problems Problem Noted Date Diagnosed Date [...] Mass Index 27.47 04/24/2019 11:27 AM CDT Procedures * DERMATOPATHOLOGY(Performed 06/26/2019) * FERRITIN(Performed 04/16/2019) * CBC W AUTO DIFFERENTIAL(Performed 04/16/2019) * COMPREHENSIVE METABOLIC PANEL(Performed 04/16/2019) * FERRITIN(Performed 10/09/2018) * CBC W AUTO DIFFERENTIAL(Performed 10/09/2018) * COMPREHENSIVE METABOLIC PANEL(Performed 10/09/2018) * HEMOGLOBIN - POCT (IP) [facility](Performed 09/26/2018) Performed for Hereditary hemochromatosis (HCC) * HEMOGLOBIN - POCT (IP) [facility](Performed 08/29/2018) Performed for Hereditary hemochromatosis (HCC) * FERRITIN(Performed 04/19/2018) * CBC W AUTO DIFFERENTIAL(Performed 04/19/2018) * COMPREHENSIVE METABOLIC PANEL(Performed 04/19/2018) * HEMOGLOBIN - POCT (IP) [facility](Performed 02/09/2018) Performed for Hereditary hemochromatosis (HCC) * HEMOGLOBIN - POCT (IP) [facility](Performed 12/01/2017) Performed for Hemochromatosis, hereditary (HCC) * HEMOGLOBIN - POCT (IP) [facility](Performed 08/04/2017) * FERRITIN(Performed 04/20/2017) * CBC W AUTO DIFFERENTIAL(Performed 04/20/2017) * COMPREHENSIVE METABOLIC PANEL(Performed 04/20/2017) * HEMOGLOBIN - POCT (IP) [facility](Performed 01/18/2017) * HEMOGLOBIN - POCT (IP) [facility](Performed 10/22/2016) * HEMOGLOBIN - POCT (IP) [facility](Performed 07/02/2016) * COMPREHENSIVE METABOLIC PANEL(Performed 04/16/2016) * FERRITIN(Performed 04/16/2016) * CBC W AUTO DIFFERENTIAL(Performed 04/16/2016) * HEMOGLOBIN - POCT (IP) [facility](Performed 04/06/2016) * HEMOGLOBIN - POCT (IP) [facility](Performed 03/23/2016) * HEMOGLOBIN - POCT (IP) [facility](Performed 03/16/2016) * HEMOGLOBIN - POCT (IP) [facility](Performed 03/09/2016) * HEMOGLOBIN - POCT (IP) [facility](Performed 03/02/2016) * HEMOGLOBIN - POCT (IP) [facility](Performed 02/20/2016) * HEMOGLOBIN - POCT (IP) [facility](Performed 02/13/2016) * HEMOGLOBIN(Performed 02/06/2016) * CT ABDOMEN MULTI PHASE W CONT(Performed 10/17/2015) * FERRITIN(Performed 09/24/2015) * PT-INR [facility](Performed 09/24/2015) * CBC W AUTO DIFFERENTIAL(Performed 09/24/2015) * COMPREHENSIVE METABOLIC PANEL(Performed 09/24/2015) * FERRITIN(Performed 05/22/2015) * CBC W AUTO DIFFERENTIAL(Performed 05/22/2015) * COMPREHENSIVE METABOLIC PANEL(Performed 05/22/2015) * IRON + TIBC PANEL(Performed 05/22/2015) * HEMOGLOBIN - POCT (IP) [facility](Performed 12/27/2014) * DERMATOPATHOLOGY(Performed 10/16/2014) * HEMOGLOBIN - POCT (IP) [facility](Performed 09/27/2014) * FERRITIN(Performed 05/23/2014) * COMPREHENSIVE METABOLIC PANEL(Performed 05/23/2014) * IRON + TIBC PANEL(Performed 05/23/2014) * CBC W AUTO DIFFERENTIAL(Performed 05/23/2014) * HEMOGLOBIN - POCT (IP) [facility](Performed 05/03/2014) * HEMOGLOBIN - POCT (IP) [facility](Performed 04/05/2014) * HEMOGLOBIN - POCT (IP) [facility](Performed 03/05/2014) * HEMOGLOBIN - POCT (IP) [facility](Performed 01/15/2014) * HEMOGLOBIN - POCT (IP) [facility](Performed 12/18/2013) * FERRITIN(Performed 10/23/2013) * COMPREHENSIVE METABOLIC PANEL(Performed 10/23/2013) * IRON + TIBC PANEL(Performed 10/23/2013) * CBC W AUTO DIFFERENTIAL(Performed 10/23/2013) * PT-INR [facility](Performed 10/23/2013) * DERMATOPATHOLOGY(Performed 05/22/2013) * FOLATE RBC(Performed 04/24/2013) * VITAMIN B12(Performed 04/24/2013) * COMPREHENSIVE METABOLIC PANEL(Performed 04/24/2013) * IRON + TIBC PANEL(Performed 04/24/2013) * FERRITIN(Performed 04/24/2013) * CBC W AUTO DIFFERENTIAL(Performed 04/24/2013) * CBC W AUTO DIFFERENTIAL(Performed 10/23/2012) * FERRITIN(Performed 10/23/2012) * COMPREHENSIVE METABOLIC PANEL(Performed 10/23/2012) * IRON + TIBC PANEL(Performed 10/23/2012) * HEMOGLOBIN(Performed 08/25/2012) * HEMOGLOBIN(Performed 05/25/2012) * DERMATOPATHOLOGY(Performed 07/21/2011) Results * DERMATOPATHOLOGY (06/26/2019 12:00 AM HOMOGENIZER OPERATOR) Only the most recent of4 resultswithin the time period is included. Case Report Dermatopathology Report Case: [id number] Authorizing Provider: Brett Aldrich MD Collected: 06/26/2019 12:00 AM Ordering Location: [facility] DermPath Lab Received: 06/27/2019 02:05 PM Pathologist: Sussy Jung MD Specimen: Skin, left lower leg 9 3:22 PM HOMOGENIZER OPERATOR DERMATOPATHOLOGY LABORATORY Final Diagnosis Specimen A. SKIN, left lower leg: BENIGN VERRUCOUS KERATOSIS, INFLAMED (L82.1) EPIDERMAL NECROSIS SUGGESTIVE OF EXCORIATION (L98.499) STASIS DERMATITIS (L30.8) 9 3:22 PM HOMOGENIZER OPERATOR DERMATOPATHOLOGY LABORATORY Clinical History R/O SCC, recurrence, Rika vs scar. 3:22 PM [facility] DERMATOPATHOLOGY LABORATORY Gross Description Specimen A: Received is one formalin filled container labeled with the patient's name and designated left lower leg. The specimen consists of a shave biopsy measuring [id number]. Jar 0. 3:22 PM [facility] DERMATOPATHOLOGY LABORATORY Microscopic Description Specimen A. SKIN, [...] which are increased in number. 3:22 PM [facility] DERMATOPATHOLOGY LABORATORY Disclaimer An external and internal positive and negative controls are appropriate for the histochemical, immunohistochemical and immunofluorescence stain(s) in this case (if any), except where stated explicitly. The performance characteristics of the stain(s) cited in this report were developed and its performance characteristic determined by the Dermatopathology Laboratory at [facility], directed by Dr. Laci Jung. These tests need not be, and therefore are not, approved by the [place] Food and Drug Administration. The tests are used for clinical purposes. Billing Codes Specimen Charges Stain Charges 49540 1 3:22 PM [facility] DERMATOPATHOLOGY LABORATORY Embedded Images 3:22 PM [facility] DERMATOPATHOLOGY LABORATORY Pathology/Cytolog y TISSUE SPECIMEN FROM SKIN / Unknown 06/26/2019 06/27/2019 2:05 PM [facility] Brett Aldrich MD LAB - PATHOLOGY/CYTO LOGY ORDERABLES DERMATOPATHOLOGY LABORATORY [facility] - Department of Dermatology [facility], [address]th [place] [address], [facility] [phone] * (ABNORMAL) CBC WITH DIFFERENTIAL (04/16/2019 11:13 AM CDT) Only the most recent of11 resultswithin the time period is included. White Blood Cell Count 6.6 3.8 - 10.8 Thousand/ uL [facility] RBC 3.24(L) 3.80 - 5.10 Million/u L [facility] Hemoglobin 11.4(L) 11.7 - 15.5 g/dL [facility] Hematocrit 33.6(L) 35.0 - 45.0 % [facility] MCV 103.7(H) 80.0 - 100.0 fL [facility] MCH 35.2(H) 27.0 - 33.0 pg [facility] MCHC 33.9 32.0 - 36.0 g/dL [facility] RDW 12.1 11.0 - 15.0 % [facility] Platelet Count 254 140 - 400 Thousand/ uL [facility] MPV 8.9 7.5 - 12.5 fL [facility] Neutrophil Absolute 4660 1500 - 7800 cells/uL [facility] Lymphocytes Absolute 700(L) 850 - 3900 cells/uL [facility] Absolute Monocytes 977(H) 200 - 950 cells/uL [facility] Eosinophils Absolute 211 15 - 500 cells/uL [facility] Basophils Absolute 53 0 - 200 cells/uL [facility] Granulocytes % 70.6 % [facility] Lymphocytes % 10.6 % [facility] Monocytes % 14.8 % [facility] Eosinophils % 3.2 % [facility] Basophils % 0.8 % [facility] Comment: Test Performed at: [facility] [address] [place] [address] HERACLIO WILLINGHAM DO,MPH 04/16/2019 11:1 3 AM CDT 04/16/2019 11:13 AM CDT Marshal Ruano MD LAB - HEMATOLOGY ORD ERABLES [facility] [address] [place] [address] * (ABNORMAL) COMPREHENSIVE METABOLIC PANEL (04/16/2019 11:13 AM CDT) Only the most recent of11 resultswithin the time period is included. Glucose 150(H) 65 - 99 mg/dL [facility] Comment: Fasting reference interval For someone without known diabetes, a glucose value >125 mg/dL indicates that they may have diabetes and this should be confirmed with a follow-up test. BUN 18 7 - 25 mg/dL [facility] Creatinine 1.18(H) 0.60 - 0.93 mg/dL [facility] Comment: For patients >49 years of age, the reference limit for Creatinine is approximately 13% higher for people identified as -Swazi. eGFR by MDRD 44(L) > OR = 60 mL/min/1. 73m2 [facility] eGFR by MDRD 52(L) > OR = 60 mL/min/1. 73m2 [facility] BUN/Creatinine Ratio 15 6 - 22 (calc) [facility] Sodium 135 135 - 146 mmol/L [facility] Potassium 4.8 3.5 - 5.3 mmol/L [facility] Chloride 100 98 - 110 mmol/L [facility] CO2 25 20 - 32 mmol/L [facility] Calcium 9.6 8.6 - 10.4 mg/dL [facility] Protein Total 6.8 6.1 - 8.1 g/dL [facility] Albumin 4.2 3.6 - 5.1 g/dL [facility] Globulin Total 2.6 1.9 - 3.7 g/dL (calc) [facility] Albumin/Globulin Ratio 1.6 1.0 - 2.5 (calc) [facility] Bilirubin Total 0.5 0.2 - 1.2 mg/dL [facility] Alkaline Phosphatase 54 33 - 130 U/L [facility] AST 25 10 - 35 U/L [facility] ALT 34(H) 6 - 29 U/L [facility] Comment: Test Performed at: [employer] [email or web address] [employer] [id number] HERACLIO WILLINGHAM DO,MPH 04/16/2019 11:1 3 AM CDT 04/16/2019 11:13 AM CDT Marshal Ruano MD LAB - CHEMISTRY MEHREEN SELLERS Performing Organization Address [facility] de Phone Number [facility] [address] [place] [address] * FERRITIN (04/16/2019 11:13 AM CDT) Only the most recent of11 resultswithin the time period is included. Ferritin 27 16 - 288 ng/mL [facility] Comment: Test Performed at: [facility] [id number] [place] [id number] HERACLIO WILLINGHAM DO,MPH 04/16/2019 11:1 3 AM CDT 04/16/2019 11:13 AM CDT Marshal Ruano MD LAB - CHEMISTRY MEHREEN SELLERS [facility] [address] [place] [address] * HEMOGLOBIN - POCT (IP) [facility] (09/26/2018 10:00 AM HOMOGENIZER OPERATOR) Only the most recent of22 resultswithin the time period is included. Hemoglobin 12.1 12.0 - 16.0 g/dL [facility] Blood BLOOD SPECIMEN / Unknown 09/26/2018 10:00 AM HOMOGENIZER OPERATOR Marshal Ruano MD LAB - POINT OF CARE ORDERABLES Performing Organization Address [facility] Co de Phone Number [facility] [address] [phone] * HEMOGLOBIN (02/06/2016 10:31 AM CDT) Only the most recent of3 resultswithin the time period is included. Hemoglobin 12.2 12.0 - 15.5 g/dL [facility] Blood specimen (specimen) BLOOD SPECIMEN / Unknown 02/06/2016 10:31 AM CDT 02/06/2016 10:37 AM CDT Marshal Ruano MD LAB - HEMATOLOGY ORD ERABLES Performing Organization Address [facility] Co de Phone Number [facility] [address] [phone] * CT ABDOMEN MULTI PHASE W CONT (10/17/2015 11:22 AM CDT) Anatomical Region Laterality Modality Other Impressions 10/17/2015 3:23 PM CDT IMPRESSION: 1. No arterially-enhancing hepatic lesions concerning for hepatocellular carcinoma. 2. Cholelithiasis without cholecystitis. Dictated by Ranjit Lundberg MD (resident programs assistant). This report was approved by Ranjit Lundberg on 10/17/2015 2:22 PM . I, Dr. PATEL GAMING M.D. have personally reviewed and interpreted this examination/study. This report was electronically signed by PATEL GAMING M.D. on 10/17/2015 3:23 PM . Narrative 10/17/2015 3:23 PM CDT EXAMINATION: Computed tomography (CT) of the abdomen and pelvis with contrast HISTORY: WILKES, hereditary hemachromatosis TECHNIQUE: CT of the abdomen was performed following the uneventful administration of 100 mL of Omnipaque 350 intravenous contrast according to a three-phase liver protocol. CT of the pelvis was also performed during the portal venous phase according to standard protocol. COMPARISON: No prior study is available for comparison. FINDINGS: The aorta is atherosclerotic but normal in caliber. The visible lung bases are clear. The heart is mildly enlarged without pericardial effusion. No liver surface nodularity is seen to suggest hepatic cirrhosis. No arterially-enhancing liver lesion suspicious for hepatocellular carcinoma is identified. The hepatic arterial anatomy is conventional. The portal vein is nondilated. The portal and main hepatic veins are patent without evidence of thrombi. No ascites or varices is identified. The spleen is not enlarged. Multiple calcified granulomas are seen throughout the spleen. Multiple gallstones are seen. Otherwise the gallbladder is normal without evidence of wall thickening or pericholecystic fluid. The intrahepatic and extrahepatic bile ducts are nondilated. The pancreas and adrenal glands are normal. A few subcentimeter low attenuating lesions in the left kidney are too small to characterize but likely represent cysts. Otherwise the kidneys enhance symmetrically. There is no evidence of renal calculus or hydronephrosis. The distal esophagus and stomach appear normal. There is colonic diverticulosis without evidence of diverticulitis. Otherwise the small bowel and large bowel are normal in caliber without evidence of wall thickening or obstruction. The appendix is not seen; however, no inflammatory changes are seen in the right lower quadrant. No free air is identified within the visible abdomen. There is no abdominal lymphadenopathy. Bone windows demonstrate no suspicious lytic or blastic lesions. The visible osseous structures are intact. Mild multilevel degenerative changes are noted in the spine. Procedure Note Patel Gaming MD - 10/22/2017 EXAMINATION: Computed tomography (CT) of the abdomen and pelvis withcontrast HISTORY: WILKES, hereditary hemachromatosis TECHNIQUE: CT of the abdomen was performed following the uneventfuladministration of 100 mL of Omnipaque 350 intravenous contrast accordingto a three-phase liver protocol. CT of the pelvis was also performedduring the portal venous phase according to standard protocol. COMPARISON: No prior study is available for comparison. FINDINGS: The aorta is atherosclerotic but normal in caliber. The visible lung bases are clear. The heart is mildly enlarged withoutpericardial effusion. No liver surface nodularity is seen to suggest hepatic cirrhosis. Noarterially-enhancing liver lesion suspicious for hepatocellular carcinomais identified. The hepatic arterial anatomy is conventional. The portal vein isnondilated. The portal and main hepatic veins are patent without evidenceof thrombi. No ascites or varices is identified. The spleen is notenlarged. Multiple calcified granulomas are seen throughout the spleen. Multiple gallstones are seen. Otherwise the gallbladder is normal withoutevidence of wall thickening or pericholecystic fluid. The intrahepatic andextrahepatic bile ducts are nondilated. The pancreas and adrenal glandsare normal. A few subcentimeter low attenuating lesions in the left kidney are too small to characterizebut likely represent cysts. Otherwise the kidneys enhance symmetrically.There is no evidence of renal calculus or hydronephrosis. The distal esophagus and stomach appear normal. There is colonicdiverticulosis without evidence of diverticulitis. Otherwise the smallbowel and large bowel are normal in caliber without evidence of wallthickening or obstruction. The appendix is not seen; however, no inflammatory changes are seen in the right lowerquadrant. No free air is identified within the visible abdomen. There isno abdominal lymphadenopathy. Bone windows demonstrate no suspicious lytic or blastic lesions. Thevisible osseous structures are intact. Mild multilevel degenerativechanges are noted in the spine. IMPRESSION IMPRESSION: 1. No arterially-enhancing hepatic lesions concerning for hepatocellularcarcinoma. 2. Cholelithiasis without cholecystitis. Dictated by Ranjit Lundberg MD (resident programs assistant). This report was approved by Ranjit Lundberg on 10/17/2015 2:22 PM . I, Dr. PATEL GAMING M.D. have personally reviewed and interpreted thisexamination/study. This report was electronically signed by PATEL GAMING M.D. on10/17/2015 3:23 PM . Marshal Ruano MD CT ORDERABLES * (ABNORMAL) PT-INR [facility] (09/24/2015 1:25 PM HOMOGENIZER OPERATOR) Only the most recent of2 resultswithin the time period is included. [facility] Signature INR 1.1 [facility] ([facility]) Comment: Reference Range 0.9-1.1 Moderate-intensity Warfarin Therapy 2.0-3.0 Higher-intensity Warfarin Therapy 3.0-4.0 PT 11.9(H) 9.0 - 11.5 sec [facility] ([facility]) Comment: For more information on this test, go to: http://education.[employer] Capture/faq/TBP464 REPORT COMMENT: IS PATIENT ON HEPARIN, ARGATROBAN OR DABIGATRAN?->N Test Performed at: [employer] [facility] [address] HERACLIO WILLINGHAM DO,MPH Blood specimen (specimen) BLOOD SPECIMEN / Unknown 09/24/2015 1:25 PM HOMOGENIZER OPERATOR 09/24/2015 1:25 PM HOMOGENIZER OPERATOR Narrative [facility] ([facility]) - 09/25/2015 6:00 AM HOMOGENIZER OPERATOR Is patient on Heparin, Argatroban or Dabigatran?->N Marshal Ruano MD LAB - COAGULATION OR DERABLES Performing Organization Address City/[facility]/ZIP Co de Phone Number [facility] ([facility]) * IRON + TIBC PANEL (05/22/2015 1:55 PM CDT) Only the most recent of5 resultswithin the time period is included. Iron 136 45 - 160 mcg/dL [facility] ([facility]) TIBC 281 250 - 450 mcg/dL [facility] ([facility]) Iron Saturation 48 11 - 50 % (calc) [facility] ([facility]) Comment: Test Performed at: [place] [id number] HERACLIO WILLINGHAM DO,MPH 05/22/2015 1:55 PM CDT 05/22/2015 1:56 PM CDT Marshal Ruano MD LAB - CHEMISTRY ORDE RABLES [facility] ([facility]) * FOLATE RBC (04/24/2013 9:07 AM CDT) RBC Folate 544 >280 ng/mL RBC [facility] ([facility]) Comment: Test Performed at: [employer] [facility] [place] [place] [address] HERACLIO WILLINGHAM DO,MPH 04/24/2013 9:07 AM CDT 04/24/2013 9:07 AM CDT Marshal Ruano MD LAB - CHEMISTRY MEHREEN SELLERS Performing Organization Address City/[facility] Co de Phone Number [facility] ([facility]) * VITAMIN B12 (04/24/2013 9:07 AM CDT) Vitamin B12 334 200 - 1100 pg/mL [facility] ([facility]) Comment: Please Note: Although the reference range for vitamin B12 is 200-1100 pg/mL, it has been reported that between 5 and 10% of patients with values between 200 and 400 pg/mL may experience neuropsychiatric and hematologic abnormalities due to occult B12 deficiency; less than 1% of patients with values above 400 pg/mL will have symptoms. Test Performed at: [facility] [address] [place] [address] HERCALIO WILLINGHAM DO,MPH 04/24/2013 9:07 AM CDT 04/24/2013 9:07 AM CDT Marshal Ruano MD LAB - CHEMISTRY MEHREEN SELLERS Performing Organization Address City/[facility] Co de Phone Number [facility] ([facility]) Care Teams Boots And Shoes Supervisor Relationship Specialty Start Date End Date Agustin Acevedo MD [address] [place] [address] DR Juana OWENS [address] [place] [id number] PCP - General 04/25/18
--- OUTSIDE RECORDS SUMMARY | 2024-09-29 08:14 | XMS_ITS | Clinical Summary ---
Author Organization [facility] Address [address] [address] Care Team Providers Care Energy Efficiency Finance Manager Name Role Phone Agustin Acevedo MD Primary Care Provider [phone] Source Comments [facility],non-owned Affiliates and Associated Physician Practices is amultiple site organization consisting of ambulatory clinics and hospital sitesin [place], [place], [place] and [place]. This disclosure is being madepursuant to the Care Everywhere program and may not contain all information available regarding this patient. Last updated 18.[facility] Allergies Active Allergy Reactions Criticality Noted Date [...] 04/24/2019 11:27 AM CDT Plan of Treatment Health Maintenance Due Date Last Done Comments BONE DENSITY TESTING 1941 DTAP/TDAP/TD VACCINES (1 - Tdap) 1960 PNEUMOCOCCAL VACCINE 50+ (1 of 1 - PCV) 1991 ZOSTER VACCINE (1 of 2) 1991 Respiratory Syncytial Virus (RSV) Vaccine Pt: or over 60 yrs (1 - 1-dose 75+ series) 2016 COVID-19 VACCINE ( - season) 2024 INFLUENZA VACCINE (#1) 2024 9, 04/28/2018, 05/29/2017, Additional history exists DEPRESSION SCREENING 07/25/2024 HEPATITIS B VACCINE Aged Out No longe r eligible based on patient's age to complete this topic HIB VACCINE Aged Out No longer eligi ble based on patient's age to complete this topic HPV VACCINE Aged Out No longer eligi ble based on patient's age to complete this topic MENINGOCOCCAL (Group B) VACCINE Aged Out No longer eligible based on patient's age to complete this topic MENINGOCOCCAL VACCINE Aged Out No tristan serenity eligible based on patient's age to complete this topic Goals Goal Patient Goal Type Associated Problems Recent Progress Patient-Stated? Author Medication Management General Crystal Ruiz, RN Note: Expected end date: ongoing Interventions: Take all medications as prescribed Let your doctor know right away about any changes in your medications Make sure to request a refill of your medication at least one week prior to your last dose Care Teams Energy Efficiency Finance Manager Relationship Specialty Start Date End Date Agustin Acevedo MD [address] [place] [address] DR [address]as [address] [address] PCP - General 04/25/18
--- OUTSIDE RECORDS SUMMARY | 2024-09-29 08:15 | XMS_ITS | Continuity of Care Document ---
Author Organization [facility] Address [address] [place] [address] [address] [place] [address] Phone Care Team Providers Care Casting Room Helper Name Role Phone Rosalino GARCIAS, Kyrie PAGAN [...] Diagnoses Date Provider Providers Copied on Encounter [facility], [address] [place], [place] [address], [place], [place], [id number], tel:[phone] [place] No Information Aug-2 8-201 5 Rosalino Kyrie. [address] [facility], [address], [place], [place], [facility], . tel:[phone] Referring Provider: [address], [place], [address]. tel:[phone] [facility], [address] [place] [address], [id number], tel:[phone] [place] No Information 5 Rosalino Kyrie. [address] [place] [address], [address], [place], [place], [facility], [place]. tel:[phone] Referring Provider: [address], [place], [address]. tel:[phone] [facility] [address] [place] [address], [place], [id number], tel:[phone] [place] No Information Rosalino Kyrie. [address] [place] [address], [address], [place], [place], [facility], [place]. tel:[phone] Referring Provider: [address], [place], [address]. tel:[phone] [place] [address] [place], [place] [address]e [facility], [place], [id number], [place] tel:[phone] [place] No Information Rosalino Kyrie. [address] [place] [address], [address], [place], [place], [facility], [place]. tel:[phone] Referring Provider: [address], [place], [address]. tel:[phone] [facility] [address] [place] [address], [id number], tel:[phone] [place] No Information 5 Rosalino Kyrie. [address] [place] [address], [address], [place], [facility], . tel:[phone] Referring Provider: [address], [place], [address]. tel:[phone] [address], [place], [place], [id number], tel:[phone] Asim No Information 5 Rosalino Kyrie. [address] [place] [address], [address], [place], [facility], . tel:[phone] Referring Provider: [address], [place], [address]. tel:[phone] [address], [place], [id number], tel:[phone] As[place] No Information 5 Rosalino Kyrie. [address] [place] [address], [address], [place], [facility], . tel:[phone] Referring Provider: [address], [place], [address]. tel:[phone] [address], [place], [id number], tel:[phone] Asim No Information 5 Rosalino Kyrie. [address] [place] [address], [address], [place], [facility], . tel:[phone] Referring Provider: [address], [place], [address]. tel:[phone] [address], [place], [id number], tel:[phone] [place] Abnormality of gaitLack of coordination 5 Rosalino Kyrie. [address] [place] [address], [address], [place], [facility], . tel:[phone] Referring Provider: [address], [place], [address]. tel:[phone] [place] [address], [place], [id number], [place] tel:[phone] Asim Dizziness Rosalino Mittal. [address] [facility], [address], [place], [address], [place]. tel: [phone] Referring Provider: Agustin Acevedo, [address] [place], [place] [address]willi Arias, [place], [address]. tel:[phone] Family History Family Member Type Diagnosis Age At Onset No Information Payers Payer name Insurance type Covered alliance party ID Authormarilina sonny(s) [employer] [place] [id number] Social History Type Description Quantity Date Captured [...]
--- OUTSIDE RECORDS SUMMARY | 2024-09-29 08:15 | XMS_ITS | Continuity of Care Document ---
Author Organization [facility] Address [address] [place] [address] [place] [address] Phone Care Team Providers Care Link Trainer Name Role Phone [facility] Unavailable Unavail able Oralia Rodriguze Unavailable Unavailable Procedures Procedure Date Vision Svcs Frames Purchases SV Polycarb Sphcyl Oreland +/-4d, 2.12-4 A Medical Tax Eye Exam & Treatment Refraction Eye Exam & Treatment [facility] Frames Purchases Progressive Lens, Plastic Tint Photochromatic, Plastic Tax - Medical Eye Exam & Treatment Advance Directives Directive Yes / No Effective Date File Name No Information Encounters Encounter Description Practice Location Reason(s) For Visit Diagnoses Date Provider Providers Copied on Encounter [facility], [address] [place] [address] [address], [place], [place], [id number], [place] tel:[phone] [facility] No Information 0-201 0 [facility] . [address] [facility], [facility] [address], [place], [place], [id number], [place]. tel:[phone] Referring Provider: Dominic Swenson, [address], [place], [address]. tel:[phone] link Provider: Oralia Rodriguez, [address] [place], [address]. tel:[phone] [facility] Eye [facility], [address] [place] [address] [address], [place], [place], [id number], tel:[phone] [facility] No Information Aries-0 2-201 0 Claire Alfaro. [address] [facility] , [address], [place], [address], . tel:[phone] [facility], [address], [place], [place], [id number], tel:[phone] [facility] No Information May-2 0-200 9 Claire Alfaro. [address] [facility] , [address], [place], [address], [place]. tel:[phone] [facility], [address], [place], [place], [id number], tel:[phone] [facility] No Information May-3 0-200 8 [facility] . [address] [facility], [address], [place], [place], [id number], . tel:[phone] Referring Provider: Dominic Swenson, [address] [place], [place] [address] [place] [address], [place], [address]. tel:[phone] link Provider: Carolin Tucker, [address] [place], [address]. tel:[phone] [facility], [address] [facility] [address], [place], [place], [id number], tel:[phone] [facility] No Information May-2 8-200 8 Claire Alfaro. [facility] [facility] , [address], [place], [address], [place]. tel:[phone] Family History Family Member Type Diagnosis Age [...]
[2024-09-29 08:19] VITALS: BP 146/58; PULSE 69; RESP 16; TEMP 36.4; O2SAT 99
--- NOTE | 2024-09-29 08:43 | ED_ITS ---
HPI - URI/Sore Throat General Chief Complaint: Upper Respiratory Infection Stated Complaint: cough Time Seen by Provider: 09/29/24 08:11 Source: patient Mode of arrival: ambulatory Limitations: no limitations History of Present Illness HPI Narrative: 84-year-old female presents to [facility] with complaints of nonproductive cough, runny nose, nasal congestion, postnasal drip, watery eyes and sneezing for the past 4-5 days. Patient reports that she start taking NyQuil and DayQuil yesterday with little relief. Patient denies sick contacts. Patient is nonsmoker. Patient denies recent travel. Patient denies shortness of breath, wheezing, fever, body aches or chills. Patient denies history of pneumonia or bronchitis. MD elicited complaint: cough, rhinorrhea and nasal congestion Onset (ago): day(s) (5) Exacerbating factors: nothing Relieving factors: nothing Treatments prior to arrival: cold medicine Related Data Home Medications ?Medication ?Instructions ?Recorded ?Confirmed ?Last Taken ?Type bupropion HCl 150 mg 24 hr tablet, 150 mg PO QAM 07/09/19 03/23/23 04/13/20 History extended release carvedilol 12.5 mg tablet 12.5 mg PO BID 07/09/19 03/23/23 04/14/20 History cholecalciferol (vitamin D3) 100 5,000 unit PO DAILY 07/09/19 03/23/23 04/13/20 History mcg (4,000 unit) capsule (Vitamin D3) valsartan 80 mg tablet 160 mg PO DAILY 07/09/19 03/23/23 04/13/20 History vitamins A,C,A-qwtd-zidvwz 2,148 1 tablet PO BID 07/09/19 03/23/23 04/13/20 History mcg-113 mg-45 mg-17.4 mg tablet ([facility]ision AREDS) aspirin 81 mg tablet,delayed 81 mg PO DAILY 02/12/20 03/23/23 04/13/20 History release (Adult Low Dose Aspirin) pantoprazole 40 mg tablet,delayed 40 mg PO DAILY 04/04/20 03/23/23 04/14/20 History release levothyroxine 50 mcg capsule 50 mcg PO DAILY 04/05/22 03/23/23 Unknown History Allergies Allergy/AdvReac Type Severity Reaction Status Date / Time clarithromycin Allergy Mild RASH Verified 09/29/24 08:12 tetracycline Allergy Mild RASH Verified 09/29/24 08:12 Review of Systems Constitutional: Constitutional: Denies chills, Denies fatigue, Denies fever(s) and Denies weakness ENT: Denies dysphagia, Denies vertigo, Denies dizziness, Denies epistaxis, Reports nasal congestion and Denies sore throat Respiratory: Respiratory: Denies chest congestion, Reports cough, Denies dyspnea and Denies wheezing Gastrointestinal: Gastrointestinal: Denies abdominal pain, Denies diarrhea, Denies nausea and Denies vomiting Musculoskeletal: Musculoskeletal: Denies arthralgias and Denies joint swelling Integumentary/Breasts: Skin/Breast: Denies rash Neurologic: Denies dizziness, Denies syncope and Denies headache(s) [facility] Past Medical History Medical History Arthritis of left hand Right rotator cuff tear Chronic hyponatremia Macular degeneration Hypothyroidism Type 2 diabetes mellitus Hemoglobin A1c was 5.2% in July 2020. Hyperlipidemia Hypertension Irritable bowel syndrome Obstructive sleep apnea on CPAP Breast cancer (1997) Status post right breast lumpectomy and radiation. Squamous cell carcinoma of skin Coronary artery disease Degenerative arthritis of knee, bilateral Restless leg syndrome History of PFTs Performed April 2019 due to amiodarone use which demonstrated mild air tra pping and moderate decreased diffusion capacity. Paroxysmal atrial fibrillation History of cardioversion in 07/05/2019. Status post Watchman procedure. GI bleed (01/2020) Secondary to duodenal ulcers. Hemochromatosis Peripheral neuropathy Surgical History Surgical History Status post surgical removal of malignant neoplasm of skin Excision squamous cell carcinoma from the left lower extremity. History of lumpectomy of right breast (1997) History of bilateral cataract extraction History of cystoscopy (2010) Performed by Dr. Sanabria due to micro hematuria biopsies demonstrated benign pathology with cystitis cystica. History of fusion of cervical spine C7-T1. History of discectomy (1999) C7-T1. Presence of Watchman left atrial appendage closure device History of colonoscopy with polypectomy History of lumpectomy of right breast With lymph node biopsy with breast cancer radiation therapy 1997 for 7 weeks Family History Family History Sibling , Sister who had a kidney injury as a child resulting in nephrectomy. Later in in life diagnosed with lupus with multiple complications but ultimately of kidney failure. Hypertension Diabetes mellitus CHF (congestive heart failure) Cerebrovascular accident Acute myocardial infarction SLE (systemic lupus erythematosus) Father , in his 80s Acute myocardial infarction Mixed connective tissue disease Mother , She in her 70s of lung cancer after 50 years of tobacco use. Lung cancer Social History Social History Social History: The patient lives in [place] with her of over 50 years. She has 4 children who are healthy. She smoked 1.5 packs of cigarettes per day for 30 years but quit smoking in 1992. She drinks an occasional glass of wine. 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 She designates her , Soto Sorenson, as her surrogate decision maker. Code status: Full code. Smoking status: Former smoker Alcohol intake: current Substance use: never Lack of Transportation: No Lack of Food: Never True Current Housing: I Have Housing Concerned About Future Housing: No Difficulty Paying Gas/Electric Bills: No Difficulty Paying for Meds: No Currently Unemployed: No Education: Associate Degree Difficulty w/ Childcare or Family Care: No Living arrangements: with family Occupation/Education: retired Comments At time of signature, I agree with nursing past medical, surgical, social and family history. There is no relevant family history pertinent to the presenting complaint. Exam Const: General: healthy appearing, no acute distress and alert Nutritional Appearance: well nourished Orientation/consciousness: patient oriented x3 Limitations: no limitations HENMT: Head: normal to inspection Ears: external ears normal, TM's normal bilaterally and Abnormal EAC present Mouth: Yes Normal oral and palatal mucosa present and Yes moist mucous membranes Throat: uvula midline Other: Mild bilateral nasal congestion noted Neck: Neck: normal visual inspection Resp: Effort & Inspection: normal respiratory effort and not labored Auscultation: clear to auscultation bilaterally, no crackles, no rales, no rhonchi, no wheezes and breath sounds present Cardio: Rate: regular rate Rhythm: regular rhythm Heart sounds: no murmurs Skin: General skin exam: normal color Rashes: no rashes Neuro: General: patient oriented x3 and moves all extremities Speech: normal speech Psych: Affect: normal affect Attitude: cooperative Course Course Level of Care: Express Care Visit Vital Signs Vital signs: Vital Signs Temperature 36.4 C L 09/29/24 08:19 Pulse Rate 69 09/29/24 08:19 Respiratory Rate 16 09/29/24 08:19 Blood Pressure 146/58 H 09/29/24 08:19 Pulse Oximetry 99 09/29/24 08:19 Oxygen Delivery Room Air 09/29/24 08:19 Temperature 36.4 C L 09/29/24 08:19 Pulse Rate 69 09/29/24 08:19 Respiratory Rate 16 09/29/24 08:19 Blood Pressure 146/58 H 09/29/24 08:19 Pulse Oximetry 99 09/29/24 08:19 Oxygen Delivery Room Air 09/29/24 08:19 MDM - URI/Sore Throat MDM Narrative Medical decision making narrative: Patient denies chest x-ray at this time. Patient understands symptoms like viral this time and declines prescription for an antibiotic. Patient agrees to Claritin daily and to take cough medication as needed. Instructed patient to follow up with primary care provider in 24 hours if symptoms not improved Differential Diagnosis Differential diagnosis: Likely viral infection, bronchitis and influenza Critical Care Time Critical Care Time Critical Care Time: No Discharge Plan Discharge Clinical Impression: Viral infection Patient Disposition: Home, Self-Care Condition: Stable Instructions: Viral Syndrome (ED) Additional Instructions: Take Claritin daily Take Tessalon as needed for cough Follow-up with primary care provider in 24-48 hours if symptoms not improved Proceed to the emergency room if symptoms worsen Patient Language: Turkish Prescriptions: New loratadine [Claritin] 10 mg tablet 10 mg PO DAILY Qty: 30 0RF benzonatate 100 mg capsule 100 mg PO BID PRN (Reason: cough) Qty: 20 0RF No Action levothyroxine 50 mcg capsule 50 mcg PO DAILY aspirin [Adult Low Dose Aspirin] 81 mg Tablet,Delayed Release (Dr/Ec) 81 mg PO DAILY pantoprazole 40 mg tablet,delayed release (DR/EC) 40 mg PO DAILY carvedilol 12.5 mg Tablet 12.5 mg PO BID valsartan 80 mg Tablet 160 mg PO DAILY bupropion HCl 150 mg Tablet Extended Release 24 Hr 150 mg PO QAM Vitamin D3 4,000 unit Capsule 5,000 unit PO DAILY PreserVision AREDS 7,160-113-100 [id number]-[id number] Tablet 1 tablet PO BID Follow-up/Referrals: Curtis,Agustin Epps. [Other]
== END 2024-09-29 08:51 | disposition home or self-care (01) ==
PROVIDERS: Emergency Provider Nurse Practitioner Family
DX: B34.9 Viral infection, unspecified (principal); E11.9 Type 2 diabetes mellitus without complications; E03.9 Hypothyroidism, unspecified; I25.10 Atherosclerotic heart disease of native coronary artery without angina pectoris; I48.0 Paroxysmal atrial fibrillation; Z87.891 Personal history of nicotine dependence
CPT/HCPCS: 99213; G0463